=== PATIENT | male | born 1955 | race Caucasian/White ===

== ENCOUNTER 2024-10-05 22:04 | Inpatient (IN) ==
[2024-10-05] MEDS ORDERED: STAT IV Infusion **Titration per Protocol STA (23:07)
[2024-10-05] MEDS: dexMEDEtomidine 200 MCG/50 ML BAG IV SCH (23:43)
[2024-10-05 23:50] LABS: Amphetamines+Metham, Urine Neg (Neg); MDMA (Ecstacy), Urine Neg (Neg); Marijuana, Urine Neg (Neg)
[2024-10-06 00:06] LABS: Anion Gap 9.0 (3-11); Blood Urea Nitrogen 14.0 mg/dl (6-23); Calcium 7.6 mg/dl (8.6-10.3); Carbon Dioxide 27.0 mmol/L (21-32); Chloride 81.0 mmol/L (98-107); Creatinine Clr Calc Pharmacy 122.8 ml/min; Glucose 95.0 mg/dl (70-99(Fasting)); Potassium 3.5 mmol/L (3.5-5.1); Sodium 117.0 mmol/L (136-145)
[2024-10-06 00:18] LABS: INR 1.2 (0.9-1.1); Prothrombin Time 13.0 Seconds (9.0-12.0)
[2024-10-06 00:19] LABS: Alanine Aminotransferase 44.0 U/L (7-52); Alkaline Phosphatase 78.0 U/L (34-104); Bilirubin,Total 1.5 mg/dl (0.2-1.0); Total Protein 6.1 gm/dl (6.0-8.3)
--- NOTE | 2024-10-06 00:24 | Critical Care Consultation ---
Date of Consultation October 06, 2024 Assessment & Plan (1) Thyroid nodule: (2) Anaplasmosis: (3) Lyme disease: (4) Hyponatremia with decreased serum osmolality: (5) Encephalopathy: Plan Reason Critically Ill: 68 YOM presents encephalopathic, febrile, hyponatremic. Concern for central nervous system infection as well as severe hyponatremia. Neuro - Encephalopathy CAM ICU: UMM - Patient with multitude of vector/risks for ELASTIC CUTTER type of infection - LP will be attempted- see separate procedure note- as sample was bloody and clotted- currently only able to be tested was lyme and crptococcal - if enough sample left biofire panel will be attempted - volume was small and bloody that was starting to clot in the tube - MRI with and without contrast to eval for abscess/ventriculitis/encephalitis/meningitis or evidence of other demyelinating processes - blood cultures x2 - Tick panel- Babesia/anaplasmosis/lyme - Will send RPR with reflex - HIV sent - Patient will be empircally treated with - Amp, acyclovir, Azithro, Rocephin, Doxycycline, and Vancomycin until clinical picture becomes more clear and/or culture data becomes more revealing - Hold on steroids at this time as he is without nuchal rigidity or headaches - ID consultation appreciated - TSH - cortisol - Fentanyl and Propofol for sedation - when weaning change to Precedex wean/extubation Cardiac - edema, elevated BNP, - Patient with pitting edema from mid thigh to lower extremities bilaterally- difficult to ascertain into abdomen or sacral area secondary to body habitus - BNP markedly elevated at 3k - As his hyponatremia has been rapidly corrected prior to arrival- will hold on diuresis at this time- pending clinical course of NA will determine diuresis option - ECHO in am - ECG without STEMI - At this time hold on anticoagulation Respiratory - Intubated requiring mechanical ventilation, concern for pneumonia - Intubated for diagnostic work up and encephalopathy - pleural effusions at this time likely secondary to fluid volume status- likely new onset HG - haziness/opacifications bilaterally on CXR- concern for infective process - legionella urine pending - strep pneumo pending - Continue Azithro, Doxy, Rocephin for pulmonary sources - Bronch samples sent from [facility] following intubation GI - No acute needs - OGT to LIWS RENAL/LYTES - Severe hyponatremia, other electrolyte disturbances - Hypoosmolar hyponatremia- with Urinary NA < 20 - at this time likely secondary to HF however may be exacerbated by or accompanied by other infective cause - Hypertonic NA in the form of 8.4% NAHCO3 administered prior to arrival at [facility]- now with NA level 118- 5mmol correction in few hours - with the severity of his hyponatremia- he is at risk for ODS - goal of correction will be aimed at slow and steady 6-8mmol in 24 hours - DDAVP 2mcg IV q8 - D5W at 100 ml/hr to slow rate of correction- he is also receiving multiple abx mixed in saline and D5 as well- once this volume is infused will re-calculate D5 - Diurese as above when NA levels stabilize - Enlarged prostate seen on CT ab/pel - renal function normal - await UA/culture- continue with villalta ENDO - abnormal TSH, thyroid nodule - can likely proceed with outpatient workup when stable - could also consider ultrasound of thyroid in house if he stabilizes+ HEME - See ID ID - - Concern for ELASTIC CUTTER infection as above - His lyme and anaplasmosis was immediately positive with path confirm on anaplasmosis- doxy 200mg IV now and then q12 - Azithromycin for concern for atypical pneumonia - Rocephin and Vanco for ELASTIC CUTTER and CAP and possible skin - Amp for listeria prevention - Acyclovir for concern of ELASTIC CUTTER infx - ID consulted LINES/IV ACCESS - CVL, PIV, ETT, Villalta, OGT Continue use of these lines DVT PROPHYLAXIS - SCDS, hold on chemoprophylaxis until LP obtained DISPO: ICU while intubated and sedated and until NA correction stable and at least 120-125 I have personally spent 55 minutes of critical care time in the direct management of this patient. This is a life/limb threatening event. This includes time spent evaluating patient, direct bedside care, chart review, placing orders, interpretation of diagnostic studies, discussion with consultants, patient, and family members, as well as other required patient management activities. This time is exclusive of all separately billable procedures, and teaching time and separate from and in addition to any other critical care service time. Thank you for allowing us to participate in the care of this patient. Please refer to my attending physician's documentation for any further recommendations Supervising Physician Co-Signing Physician Notes I have personally evaluated and examined this patient. I agree with assessment and plan of Enio TORRES. Patient does not have capacity, is not exhibiting clear insight into underlying disease process. History obtained from sister reports that the patient lives a rather rustic life, he has had numerous animals in his home, previously there were bats living in his home, reportedly the patient drinks bottled water however I am unsure of the type of water or well water the patient has access to, he does not follow-up with physicians and has not received vaccinations in several years. Patient is at risk for multiple unique infections including Legionella, Listeria, all tickborne diseases (he is already tested positive for Lyme and anaplasmosis) given the findings on the LP as it is going to be largely nondiagnostic given that they persist presumptively a traumatic tap we will empirically start acyclovir, ampicillin to cover Listeria, azithromycin for Legionella, Doxy for anaplasmosis, high-dose ceftriaxone which will cover Lyme and additional CSF pathogens, vancomycin for skin and soft tissue. Patient's sister reports he routinely excoriates his upper extremities and has been dealing with open wounds. While the patient has upper extremity cellulitis he does not appear to have evidence of necrotizing infection. Patient has intertrigo in the inframammary folds as well as the inguinal creases. He was found to be significantly hyponatremic and treatment was started at [facility] [address] ED where he initially presented. He has rapidly increased in 4 points in sodium, therefore we are adding DDAVP and starting free water. Patient appears to have sick euthyroid with a decreased TSH and elevated free T4. AST is mildly elevated, checking acute hepatitis panel however I suspect there are aspects of metabolic dysfunction associated steatohepatitis patient is morbidly obese with a BMI of greater than 45, also sending lipid panels as well as A1c. I reviewed the CT reports from [facility] [address], the CT head was largely unremar kable it noted he had a thyroid nodule as well as enlarged lymph node on the right and inguinal lymph nodes which may correlate to the intertrigo. He has enlarged prostate given the lack of follow-up, age, and encephalopathy checking a PSA: The patient has not had a rectal exam to my knowledge so I believe the PSA will be reflective of his baseline. I have personally spent 45 minutes of critical care time in the direct management of this patient 2 AM to 2:45 AM. This is a life/limb threatening event. This includes time spent evaluating patient, direct bedside care, chart review, placing orders, interpretation of diagnostic studies, discussion with consultants, patient, and/or family members regarding treatment decisions, as well as other required patient management activities. This time is exclusive of all separately billable procedures, and teaching time and separate from and in addition to any other critical care service time. History of Present Illness Reason for Consultation: hyponatremia Requesting Physician: gerardo crowe MD Attending Physician: Gerardo Crowe MD History of Present Illness 68 YOM that does not routinely seek medical care or follow with a PCP was with a friend today and was noted to be acting strange. The friend called the daughter who lives in [facility], she was aware that he has been acting strange the past week with multiple complaints of "muscles not working right" and seeming confused and irritable. She directed the friend to call 911, and she would leave to drive to [place]. EMS did show up and the patient refused to be transported to the hospital, the Daughter did show up and get the patient to go to [facility] in [place], where in the ER he was noted to be encephalopathic and hypoxic. He had routine labs performed that included TSH, BNP, and D-dimer, as well as CT head, CTA of the chest and CT of abd/pelvis. He was noted with severe hyponatremia to 113, as well as elevated BNP, and elevated D-dimer. The patient was given 1L normal saline and 2 amps of 8.4 % NAHCO3 for his hyponatremia. CT head was without hemorrhage, mass, or LVO, CTA of chest was poorly timed, but without large PE, CT abd/pelvis without acute process. Transfer was requested to [facility] for reported as hypervolemic hyponatremia. NA prior to leaving for [facility] was corrected to 118. He received Rocephin for concern of pneumonia. Patient arrived to [facility] with his sister. The patient was agitated, trying to remove catheter and IV lines, he is unable to tell us where he is or why he is at the hospital. He is also unable to recall that he has a catheter in place to void. He is moving all extremities and speech is clear, but inappropriate. He was febrile to 36.8 on arrival as well. His daughter presented with further history regarding his symptoms and medical history. She confirms that the patient has not seen a DrOzzie in over 7 years and at that time she took him to the for swelling in his legs. He did not follow up for any of the follow on cardiac tests or further medical screening. She states that over the past 2 weeks he has been saying that "he has a virus that won't go away" reports that he was feeling feverish and anxious and weak. She also reports that he scratches at his arms pulling out "white strands of tissue" as well as that he has been complaining of weakness in his muscles, and that his "motor function is not working right". Further information regarding his symptoms she also notes that his house is not well kept and that he may or not be using well water, but states he got a new filter for this. She also reports that he has a multitude of cats in his house and the house is not well kept or clean, [place] that [place] mostly all tall grass and weeds and he is out through the grass and weeds frequently. There was also history of bats in his attic with bat feces noted through the house, however this was "years ago", she does report that he did drink a bottle of water today when she offered it to him. She states that he does not usually want to go to the hospital and is not in tune with medications or vaccinations. At this time there is a stronger suspicion of likely infective process that may be also exacerbating or at the very least accompanying this hyponatremia and symptoms of encephalopathy further increasing risk for seizure or disability or decompensation. With his current status and wide range of possible vectors for an encephalitis/meningitis/atypical infection, we will send tick borne labs, obtain blood cultures, urine culture, fungal cultures. Discussed that he would benefit from an LP to increase yield for workup and diagnosis to rule in/out central nervous system infection as well as an MRI. For this however, the patient is not in the current state to follow commands, or consent to have these performed. For this intubation, sedation and mechanical ventilation was recommended. She was unsure of how to proceed as Agustin would not want to be on a ventilator, but was even more unsure because this is potentially reversible as well as a tool to allow for diagnostics that may be life saving. We had a family conference call with the 2 Sons, Obinna, and Shivam, and the Daughter Ila. I explained the above, that at this time he is critically ill and evaluating for a central nervous system or systemic infection is also priority as this may be either primary or secondary relation to his mentation and his hyponatremia. They all agreed that progressing with intubation, mechanical ventilation and LP to rule in or out central process was beneficial to Agustin and allow him to progress through his care safer as well as the possibility of increasing yield to a diagnosis. Risks and benefits of the LP, and Intubation with sedation were presented to include but not limited to . I have discussed the above with Dr. Abreu my Attending in real time following the HPI data and he agreed with the above with plan to proceed with intubation, LP, and advanced imaging. He was present at the bedside within 15 minutes. CODE: FULL Allergies Allergy/AdvReac Type Severity Reaction Status Date / Time No Known Allergies Allergy Unverified 10/05/24 23:21 Home Medications Medication Instructions Recorded Confirmed Type No Known Home Medications 10/05/24 10/05/24 History Patient History Social History Smoking Status: Current every day smoker Tobacco Type: Pipe Hx Alcohol Use: Yes Alcohol type: beer Hx Substance Use: No Preferred Language: Citizen Of [place] Communication Ability: Impaired [place] Can Worker Required: No Beliefs That Will Affect Care: None Current Living Situation: Alone Other Information That Helps Us Care for You: No Feels Safe at Home: Yes Safety Concerns: Feels Safe At This Time Assistive Devices: Glasses Review of Systems Review of Systems: as per HPI Physical Exam Physical Exam: PHYSICAL EXAM: General: awake, alert, confused/agitated and combative ENT: PERRLA, tracks you around the room, mucous membranes dry. Neuro: AAO x1, speech slurred and inappropriate, strength intact bilaterally 5/5, sensation intact in all extremities, no facial droop, Chest: equal rise and fall of the chest, abdominal breathing, difficult assessment secondary to body habitus and chest hair Cardiac: Regular rate and rhythm, telemetry reviewed- NSR, skin warm dry, cap refill <3 seconds, peripheral pulses +1, GI: NABS x 4 quadrants, obese, distended : Villalta draining geo urine Skin: scarred and open areas to bilateral upper arms, pedunculated lesions to bilateral lower legs, heels, onychomycosis severe to toes, excoriated groin and breast folds Results & Data Results & Data Vital Signs (Past 12 Hours) Vital Signs Temp Pulse Pulse Resp BP BP Pulse Ox 10/05/24 23:12 38.6 C H 103 H 34 H 95 10/05/24 23:00 10/05/24 23:00 38.6 C H 102 H 25 H 93 10/05/24 22:47 152/95 H 10/05/24 22:47 152/95 H 10/05/24 22:42 117 H 89 L 10/05/24 22:30 38.6 C H 122 H 22 152/95 H 92 O2 Del Method O2 Flow Rate 10/05/24 23:12 10/05/24 23:00 Nasal Cannula 2 10/05/24 23:00 10/05/24 22:47 10/05/24 22:47 10/05/24 22:42 10/05/24 22:30 Nasal Cannula 2 Laboratory Results Abnormal lab results 10/05/24 10/05/24 10/06/24 Range/Units 23:16 23:43 02:16 PT 13.0 H (9.0-12.0) Seconds INR 1.2 H (0.9-1.1) VBG pH 7.48 H (7.36-7.41) Sodium 117 L* (136-145) mmol/L Chloride 81 L (98-107) mmol/L Osmolality 241 L (280-300) mOsm/kg Calcium 7.6 L (8.6-10.3) mg/dl Total Bilirubin 1.5 H (0.2-1.0) mg/dl Direct Bilirubin 1.0 H (0-0.2) mg/dl AST 52 H (13-39) U/L Albumin 2.8 L (3.4-5.0) gm/dl Triglycerides (0-150) mg/dl VLDL Cholesterol, Calc (0-30) mg/dl Cholesterol/HDL Ratio (0-5) Prostate Specific Ag 4.585 H (0-4) ng/ml Procalcitonin 2.51 H (0-0.5) ng/ml TSH 0.276 L (0.300-4.500) uIu/ml Anaplasma Smear See Comment A Lyme Disease Screen Positive H (Negative) Lyme Tier 2 IgG Confirm Positive H (Negative) Lyme Tier 2 IgM Confirm Positive H (Negative) 10/06/24 Range/Units 03:29 PT (9.0-12.0) Seconds INR (0.9-1.1) VBG pH (7.36-7.41) Sodium (136-145) mmol/L Chloride (98-107) mmol/L Osmolality (280-300) mOsm/kg Calcium (8.6-10.3) mg/dl Total Bilirubin (0.2-1.0) mg/dl Direct Bilirubin (0-0.2) mg/dl AST (13-39) U/L Albumin (3.4-5.0) gm/dl Triglycerides 194 H (0-150) mg/dl VLDL Cholesterol, Calc 39 H (0-30) mg/dl Cholesterol/HDL Ratio 9.8 H (0-5) Prostate Specific Ag (0-4) ng/ml Procalcitonin (0-0.5) ng/ml TSH (0.300-4.500) uIu/ml Anaplasma Smear Lyme Disease Screen (Negative) Lyme Tier 2 IgG Confirm (Negative) Lyme Tier 2 IgM Confirm (Negative) Medications Administered Home Medications No Known Home Medications 10/05/24 [History Confirmed 10/05/24] Active Medications Acetaminophen (Acetaminophen 325 Mg Tab) 650 mg PO Q4H PRN PRN Reason: Fever/Mild Pain (Pain 1,2,3) Stop: 11/05/24 00:34 Fentanyl Citrate (Fentanyl Bolus From Bag) 50 mcg IV Q60M PRN PRN Reason: Pain or Agitation Stop: 10/20/24 00:34 Fentanyl Citrate (Fentanyl Citrate Pf 100 Mcg/2 Ml Vial) 50 mcg IV Q2H PRN PRN Reason: Moderate Pain (4,5,6) on NRS Stop: 10/20/24 01:05 Propofol (Diprivan) 1,000 mg in 100 mls @ 18.168 mls/hr IV .Q5H31M [facility]; Protocol Stop: 10/09/24 00:44 Last Admin: 10/06/24 02:11 Dose: 20 mcg/kg/min, 18.2 mls/hr Fentanyl Citrate (Fentanyl Citrate) 2,500 mcg in 250 mls @ 2.5 mls/hr IV .Q96H [facility]; Protocol Stop: 10/20/24 00:44 Last Admin: 10/06/24 02:22 Dose: 25 mcg/hr, 2.5 mls/hr Doxycycline Hyclate 100 mg/ (Dextrose) 100 mls @ 50 mls/hr IV Q12H [facility] Stop: 10/20/24 08:59 Acetaminophen (Ofirmev) 1,000 mg in 100 mls @ 400 mls/hr IV Q8H PRN PRN Reason: Fever/Mild Pain (Pain 1,2,3) Stop: 10/09/24 01:05 Last Infusion: 10/06/24 02:56 Dose: Infused Desmopressin Acetate 2 mcg/ (Sodium Chloride) 50.5 mls @ 100 mls/hr IV Q8H [facility] Stop: 11/05/24 01:29 Last Infusion: 10/06/24 03:06 Dose: Infused Dextrose (D5w) 1,000 mls @ 100 mls/hr IV .Q10H [facility] Stop: 10/09/24 01:29 Last Admin: 10/06/24 02:18 Dose: 100 mls/hr Doxycycline Hyclate 100 mg/ (Dextrose) 100 mls @ 50 mls/hr IV Q2H [facility] Stop: 10/06/24 05:44 Last Admin: 10/06/24 02:10 Dose: 50 mls/hr Ceftriaxone Sodium (Rocephin) 2,000 mg in 50 mls @ 100 mls/hr IV Q24H [facility] Stop: 10/16/24 01:59 Last Infusion: 10/06/24 03:06 Dose: Infused Ampicillin Sodium/Sulbactam Sodium (Unasyn) 3,000 mg in 100 mls @ 200 mls/hr IV Q6H [facility] Stop: 10/16/24 01:44 Last Infusion: 10/06/24 03:54 Dose: Infused Vancomycin HCl 2,750 mg/ (Sodium Chloride) 555 mls @ 180 mls/hr IV NOW ONE Stop: 10/06/24 05:04 Last Admin: 10/06/24 02:37 Dose: 180 mls/hr Norepinephrine Bitartrate (Levophed/D5w) 4 mg in 250 mls @ 28.388 mls/hr IV .Q8H49M [facility]; Protocol Stop: 11/05/24 03:29 Last Admin: 10/06/24 03:25 Dose: 0.05 mcg/kg/min, 28.4 mls/hr Vancomycin HCl 1,500 mg/ (Sodium Chloride) 530 mls @ 200 mls/hr IV Q12H [place] Stop: 10/16/24 13:59 Miscellaneous ([facility] Protocol For Hyperglycemia) 1 each N/A ACHS [place] Stop: 10/08/24 07:29 Miscellaneous Information (Vancomycin Consult Active) 0 each N/A UD PRN PRN Reason: Consult Stop: 11/05/24 01:39 Propofol (Propofol Bolus From Bag) 20 mg IV Q5M PRN PRN Reason: Sedation Stop: 10/09/24 00:34 Coding Level of Care Code 60914 CRITICAL CARE 1ST 30-74M Diagnoses Thyroid nodule E04.1 Anaplasmosis A77.49 Lyme disease A69.20 Hyponatremia with decreased serum osmolality E87.1 Encephalopathy G93.40
[2024-10-06 00:29] LABS: Thyroid Stimulating Hormone 0.276 uIu/ml (0.300-4.500)
[2024-10-06] MEDS ORDERED: ACETAMINOPHEN 325 MG TAB PO PRN (00:35)
[2024-10-06] MEDS ORDERED: PROPOFOL BOLUS FROM BAG IV PRN (00:35)
[2024-10-06] MEDS ORDERED: VECURONIUM BROMIDE 10 MG VIAL IV STA (00:35)
[2024-10-06] MEDS ORDERED: STAT IV Infusion **Titration per Protocol STA ×2 (00:35→03:16)
[2024-10-06 00:37] LABS: Lyme Screen Rflx Confirmation Positive (Negative)
[2024-10-06 00:50] LABS: Procalcitonin 2.51 ng/ml (0-0.5)
[2024-10-06 01:16] LABS: Lyme Ab IgG 2nd Tier Confirm Positive (Negative)
[2024-10-06 01:17] LABS: Lyme Ab IgM 2nd Tier Confirm Positive (Negative)
--- NOTE | 2024-10-06 01:24 | History & Physical Report ---
Date of Service October 06, 2024 Assessment & Plan (1) Confusion: Plan: 68-year-old male who does not go to doctors was taken to [facility] by his sister because of confusion and found to have hyponatremia and was transferred here for ICU admission. Patient is currently very restless and somewhat agitated. Can tell his name. When asked his age says he is 69-year-old and his birthday is next Monday. Denies any chest pain. Patient constantly trying to take off restraints. Difficult to get any history from the patient currently. Says he smokes cigars. Says he drinks alcohol once a week. Denies any marijuana. Denies any medication except supplements. As per sister patient was complaining of virus infection for few days but since last Monday symptoms seem got worse and was complaining shortness of breath. When sister talked on the the phone today patient seemed to be confused. And as per sister patient does not like hospitals and did not see any doctors for long time. As per sister patient living conditions are not great. There are several cats in the house. House is not Properly kept. He drinks well water as per sister. [place] Lives [place]. Few years back there were bats in the house. His legs are swollen for some time per sister. He is a [employer] grad as per sister. Currently patient is spiking temperature. Blood pressure okay. Saturating 95% 2 L. Tachycardic.. At [facility] patient received Rocephin and azithromycin. He also received 2 A of sodium bicarbonate and 1 L of normal saline. 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 1.9 cm left thyroid nodule. 2.1X 1.7 cm right axillar lymph nodes Rule out meningitis/encephalitis On IV doxycycline, acyclovir, ampicillin, Rocephin, vancomycin and azithromycin Plan for LP and MRI of the brain- MRI brain no acute findings s/p intubation. Vent management per critical care. Appreciate critical care help Hyponatremia Presented with sodium of 113 at [facility] Received 2 A of sodium bicarb and 1 L of normal saline and repeat was 118. Sodium repeat here is 117 On desmopressin per critical care Close monitoring of the labs for sow correction appreciate critical care help. Rapid A-fib Will follow serial cardiac enzymes and echo Plan for anticoagulation after LP cardiology consult Lower extremity edema Elevated BNP Dopplers when stable Will follow echo DVT prophylaxis SCDs for now Disposition ICU CODE STATUS level 1 full code for now Admission and Anticipated Discharge Date Admission Date: October 05, 2024 History of Present Illness Chief Complaint: Confusion, hyponatremia, fevers Primary Care Provider: NO PCP 68-year-old male who does not go to doctors was taken to [facility] by his sister because of confusion and found to have hyponatremia and was transferred here for ICU admission. Patient is currently very restless and somewhat agitated. Can tell his name. When asked his age says he is 69-year-old and his birthday is next Monday. Denies any chest pain. Patient constantly trying to take off restraints. Difficult to get any history from the patient currently. Says he smokes cigars. Says he drinks alcohol once a week. Denies any marijuana. Denies any medication except supplements. As per sister patient was complaining of virus infection for few days but since last Monday symptoms seem got worse and was complaining shortness of breath. When sister talked on the the phone today patient seemed to be confused. And as per sister patient does not like hospitals and did not see any doctors for long time. As per sister patient living conditions are not great. There are several cats in the house. House is not Properly kept. He drinks well water as per sister. [place] Lives alone. Few years back there were bats in the house. His legs are swollen for some time per sister. He is a [employer] grad as per sister. Currently patient is spiking temperature. Blood pressure okay. Saturating 95% 2 L. Tachycardic.. At [facility] patient received Rocephin and azithromycin. He also received 2 Amps of sodium bicarbonate and 1 L of normal saline. Past medical history. Unknown. Past surgical history. Unknown. Social history. Smokes cigars. Drinks alcohol once a week. Denies any drug use. Family history. Unknown at this time. Father had heart disease as per sister. Allergies Allergy/AdvReac Type Severity Reaction Status Date / Time No Known Allergies Allergy Unverified 10/05/24 23:21 Home Medications Medication Instructions Recorded Confirmed Type No Known Home Medications 10/05/24 10/05/24 History Past Med/Surg History Problem List (Updated 10/06/24 @ 05:47 by MELISSA Forte) Encephalopathy Intertriginous candidiasis Hyponatremia with decreased serum osmolality Prostate enlargement Cellulitis of right arm Thyroid nodule 1.9 cm left thyroid lobe; CT 10/05/24 Anaplasmosis Lyme disease Confusion Social History Smoking Status: Current every day smoker Tobacco Type: Pipe Hx Alcohol Use: Yes Alcohol type: beer Hx Substance Use: No Preferred Language: Maori Communication Ability: Impaired Record Systems Analyst Required: No Beliefs That Will Affect Care: None Current Living Situation: Alone Other Information That Helps Us Care for You: No Feels Safe at Home: Yes Safety Concerns: Feels Safe At This Time Assistive Devices: Glasses Review of Systems Review of Systems: Unobtainable due to reduced consciousness Physical Exam Physical Exam: General- Restless Head- atraumatic Eyes- PERRL. ENT- oropharynx clear Neck- supple, no JVD. Lungs- clear to auscultation no wheezing or crackles Heart- regular rhythm; tachycardia no murmur, no gallop. Abdomen- normal bowel sounds, soft, nontender, no distension Extremities- b/l lower extremity edema with chromic skin changes seen, no erythema seen Neuro- Restless oriented x1 ; PERRL, no facial palsy; no dysarthria; moves extremities Results & Data Results & Data Vital Signs (Past 12 Hours) Vital Signs Temp Pulse Pulse Resp BP BP Pulse Ox 10/05/24 23:12 38.6 C H 103 H 34 H 95 10/05/24 23:00 10/05/24 23:00 38.6 C H 102 H 25 H 93 10/05/24 22:47 152/95 H 10/05/24 22:47 152/95 H 10/05/24 22:42 117 H 89 L 10/05/24 22:30 38.6 C H 122 H 22 152/95 H 92 O2 Del Method O2 Flow Rate 10/05/24 23:12 10/05/24 23:00 Nasal Cannula 2 10/05/24 23:00 10/05/24 22:47 10/05/24 22:47 10/05/24 22:42 10/05/24 22:30 Nasal Cannula 2 Laboratory Results From [facility] vbg ph 7.51,pco2 33carboxyhemo 1%, glucose 101, bun 13, creatinine 0.8, total protein 6.4, total bilirubin 1.5, AST 61, ALT 61, alkaline phosphatase 91, sodium 113, potassium 3.6, chloride 80, CO2 25, lipase 26, magnesium 1.6,. BNP 3499, troponin 1 HS 31. TSH 0.33, free T41.14. D-dimer 6220. WBC 6.9, hemoglobin 11.3, hemocculted 31.7, MCV 79.4, platelet 165. Flu A, flu B not detected UA protein 2+ UA nitrate negative UA leukocyte esterase negative Urine sodium 8 CT head. Motion limited evaluation. No acute intracranial process identified CTA chest. Evaluation pulmonary embolism significant limited by poor contrast timing and respiratory motion artifact. No evidence of large or central PE. Nonspecific mild bibasilar airspace opacities may represent atelectasis, pneumonia or aspiration. 1.9 cm left thyroid lobe nodule. Nonemergent thyroid ultrasound recommended. Enlarged right axillary lymph nodes measuring 2.1X 1.7 cm. Further evaluation is recommended. CT abdomen pelvis with contrast. No acute findings in the abdominal pelvis. Nonspecific enlarged bilateral inguinal lymph nodes. These lymph nodes could be reactive or malignant. Follow-up CT scan in 3 months is recommended. Marked prostatomegaly with prostate measuring 7.5X 6.3 cm. Diagnostic Findings Laboratory Results PT 13.0 Seconds (9.0-12.0) H 10/05/24 23:16 INR 1.2 (0.9-1.1) H 10/05/24 23:16 VBG pH 7.48 (7.36-7.41) H 10/05/24 23:16 Sodium 117 mmol/L (136-145) L* 10/05/24 23:16 Potassium 3.5 mmol/L (3.5-5.1) 10/05/24 23:16 Chloride 81 mmol/L (98-107) L 10/05/24 23:16 Carbon Dioxide 27 mmol/L (21-32) 10/05/24 23:16 Anion Gap 9 (3-11) 10/05/24 23:16 BUN 14 mg/dl (6-23) 10/05/24 23:16 Creatinine 0.86 mg/dl (0.6-1.4) 10/05/24 23:16 Est Cr Clr Drug Dosing 122.8 ml/min 10/05/24 23:16 eGFR 93.73 10/05/24 23:16 BUN/Creatinine Ratio 16.3 (10-20) 10/05/24 23:16 Glucose 95 mg/dl (70-99(Fasting)) 10/05/24 23:16 Osmolality 241 mOsm/kg (280-300) L 10/05/24 23:43 Calcium 7.6 mg/dl (8.6-10.3) L 10/05/24 23:16 Total Bilirubin 1.5 mg/dl (0.2-1.0) H 10/05/24 23:16 Direct Bilirubin 1.0 mg/dl (0-0.2) H 10/05/24 23:16 AST 52 U/L (13-39) H 10/05/24 23:16 ALT 44 U/L (7-52) 10/05/24 23:16 Alkaline Phosphatase 78 U/L (34-104) 10/05/24 23:16 Total Protein 6.1 gm/dl (6.0-8.3) 10/05/24 23:16 Albumin 2.8 gm/dl (3.4-5.0) L 10/05/24 23:16 Procalcitonin 2.51 ng/ml (0-0.5) H 10/05/24 23:43 TSH 0.276 uIu/ml (0.300-4.500) L 10/05/24 23:16 Free T4 0.91 ng/dl (0.61-1.60) 10/05/24 23:16 Urine Opiates Screen Neg (Neg) 10/05/24 Unknown Ur Methadone, Qual Neg (Neg) 10/05/24 Unknown Urine Fentanyl Screen Neg (Neg) 10/05/24 Unknown Urine Barbiturates Neg (Neg) 10/05/24 Unknown Ur Phencyclidine (PCP) Neg (Neg) 10/05/24 Unknown U Amphetamin/Meth Scrn Neg (Neg) 10/05/24 Unknown MDMA (Ecstasy) Screen Neg (Neg) 10/05/24 Unknown U Benzodiazepines Scrn Neg (Neg) 10/05/24 Unknown Ur Cocaine Metabolite Neg (Neg) 10/05/24 Unknown U Marijuana (THC) Screen Neg (Neg) 10/05/24 Unknown Anaplasma Smear See Comment A 10/05/24 23:43 Babesia Smear See Comment 10/05/24 23:43 Lyme Disease Screen Positive (Negative) H 10/05/24 23:43 Lyme Tier 2 IgG Confirm Positive (Negative) H 10/05/24 23:43 Lyme Tier 2 IgM Confirm Positive (Negative) H 10/05/24 23:43 ECG Additional Comments: EKG. A-fib with RVR at a rate of 120. QTc 449 Code Status & VTE Plan VTE Prophylaxis Plan VTE Prophylaxis will be ordered: Yes
[2024-10-06] MEDS ORDERED: VANCOMYCIN CONSULT ACTIVE PRN (01:40)
[2024-10-06] MEDS ORDERED: DEXTROSE 5% IV ONE (01:42)
[2024-10-06] MEDS ORDERED: ACYCLOVIR SOD IV ONE (01:42)
[2024-10-06] MEDS: Patient's HEIGHT &/or WEIGHT Needed STA (01:52)
[2024-10-06] MEDS: RAPID SEQUENCE INDUCTION BAG ONE (01:54)
[2024-10-06] MEDS: DOXYCYCLINE HYCLATE 100 MG in DEXTROSE 5% MINI-B 100 ML IV STA (02:00)
--- NOTE | 2024-10-06 02:08 | Procedure Note ---
Procedure Note Date of Service October 06, 2024 Procedure date: Noted above Procedure: Central venous access Pre-procedure indication: Need for definitive venous access, frequent lab draws Post-procedure Diagnosis: same as above Prior to Procedure: Informed Consent: The risks, benefits, indications, potential complications, and alternatives were explained to the patient's family via conference call and informed consent obtained. Attending Staff: Alberto Abreu DO Resident/APC: Taylor Skin Prep: Chlorhexidine Anesthesia: 4 mL 1% lidocaine without epinephrine The identity of the patient was confirmed and a bedside time out was performed. Description of Procedure: After sterile prep and sterile drape utilizing standard sterile technique the superficial skin of the right subclavian area was anesthetized. The target vessel was identified and entered with an 18-gauge needle. Dark venous blood return was noted. A guidewire was inserted through the needle and into the vessel. The needle was withdrawn and a skin kelsey was made. A tissue dilator was advanced via Seldinger technique and removed. A triple lumen catheter was inserted via Seldinger technique and the guidewire removed. All ports mamadou and flushed easily. A Biopatch was placed, and the catheter was secured via silk suture. A sterile dressing was then applied. Complications: None Estimated blood loss: Trace Patient tolerated the procedure well. [facility] [place] Codes (Charges) Tubes, Drains, and Vasc Access Procedure 1: Tubes, Drains, and Vasc Access: [id number] Insertion Of Non-tunneled Catheter Age 4 Yrs> Coding CPT Codes Tubes, Drains, and Vasc Access - Tubes, Drains, and Vasc Access: [id number] Insertion Of Non-tunneled Catheter Age 4 Yrs> ([id number]) Additional Codes Date of Service ([email or web address])
[2024-10-06] MEDS: DOXYCYCLINE HYCLATE 100 MG in DEXTROSE 5% MINI-B 100 ML IV SCH ×2 (02:10→16:44)
--- NOTE | 2024-10-06 02:10 | Procedure Note ---
Procedure Note Date of Service October 06, 2024 Procedure Date: Noted above Procedure: Endotracheal intubation Pre-procedure Diagnosis: Patient critically ill, encephalopathic need to facilitate medical evaluation Post-procedure Diagnosis: same as above Prior to Procedure: Informed Consent: Patient's family was verbally consented via conference call Attending Staff: Alberto Abreu DO The identity of the patient was confirmed and a bedside time out was performed. Description of Procedure: Patient was evaluated and required intubation for impending respiratory failure. The patient was prepared in the usual fashion. A video laryngoscope was used. A 8 mm inner diameter endotrachial tube was placed endotracheally to 24 cm at the teeth. A grade 1 view was obtained. The endotracheal tube was noted to pass through the vocal cords. Chest rise was bilateral. Bilateral breath sounds were heard without air sounds in the abdomen. Mist was noted in the endotracheal tube. End-tidal CO2 measurement was positive. Chest x-ray shows proper endotracheal tube placement. Complications: None Findings: Not applicable Specimens: Not applicable Estimated blood loss: Zero [facility] Procedure Codes (Charges) Resuscitation Resuscitation: 79554 Endotracheal Intubation, emergency Coding CPT Codes Resuscitation - Resuscitation: 15023 Endotracheal Intubation, emergency ([id number]) Additional Codes Date of Service ([email or web address])
[2024-10-06] MEDS: DEXTROSE 5% 1,000 ML IV SCH (02:18)
[2024-10-06] MEDS: DESMOPRESSIN ACETATE 2 MCG in SODIUM CHLORIDE 0.9% 50 ML IV SCH (02:19)
[2024-10-06] MEDS: fentaNYL citrate 2,500 MCG/250 ML BAG IV SCH (02:22)
[2024-10-06] MEDS: VECURONIUM BROMIDE 10 MG VIAL IV STA (02:22)
--- NOTE | 2024-10-06 02:23 | Procedure Note ---
Procedure Note Date of Service October 06, 2024 Procedure Date: October 06, 2024 Procedure: Lumbar puncture Pre-procedure Diagnosis: Acute encephalopathy Post-procedure Diagnosis: same as above Prior to Procedure: Informed Consent: The risks, benefits, indications, potential complications, and alternatives were explained to the patient's family via conference call and informed consent obtained. Attending Staff: Caridad Abreu DO Resident/Physician Water Registrar: Taylor Indications: Patient is a 68-year-old male who has abrupt onset neurologic complaints and was found to be with an altered sensorium and fever. The identity of the patient was confirmed and a bedside time out was performed. Description of Procedure: Patient was positioned in the right labral decubitus position, prepped and draped in usual sterile fashion. The L4-5 and L5-S1 space located with bilateral iliac crests as landmarks. 1% Lidocaine without epinephrine was used to anesthetize the area. An 18-gauge spinal needle was utilized. 3 needle passes were attempted at the L5-S1 space and unable to enter the subarachnoid space. A single needle passed in the L4-5 space entered the subarachnoid space. Stylet was removed with bloody fluid return that did not clear. 2 mL of fluid was obtained prior to the flow of the fluid stopping. Fluid was frankly bloody, no appearance of clots. Specimen(s): sent for BioFire PCR, culture: Given the small amount of fluid and obvious red cells the cell count, glucose, protein would be presumptively nondiagnostic. Complications: Presumptive traumatic lumbar puncture Findings: Frankly bloody CSF fluid Estimated Blood Loss: trace [facility] Procedure Codes (Charges) Neurology Neurology: 53173 Lumbar Puncture, diagnostic Coding CPT Codes Neurology - Neurology: 39408 Lumbar Puncture, diagnostic ([id number]) Additional Codes Date of Service ([email or web address])
[2024-10-06] MEDS: AZITHROMYCIN 500 MG/255 ML BAG IV ONE (02:28)
[2024-10-06] MEDS: cefTRIAXone SODIUM 2,000 MG/50 ML BAG IV SCH ×2 (02:34→14:18)
[2024-10-06] MEDS: VANCOMYCIN HCL 2,750 MG in SODIUM CHLORIDE 0.9% 500 ML IV ONE (02:37)
[2024-10-06] MEDS: ACETAMINOPHEN 1,000 MG/100 ML VIAL IV PRN (02:39)
--- NOTE | 2024-10-06 02:44 | XRay Report ---
EXAM: XR chest 1V portable CLINICAL HISTORY: Post intubation and CVC TECHNIQUE: Radiograph of chest was acquired. COMPARISON: FINDINGS: Endotracheal tube in situ with the tip at a distance of approximately 7. 4 cm from swapnil Blunting of the bilateral costophrenic angles Ill-defined haziness in right middle and lower lobes and left lower zone The lungs are clear and well-expanded . Rest of the cardiomediastinal silhouette is within normal limits. No acute osseous abnormality. IMPRESSION: Endotracheal tube in situ with the tip at a distance of approximately 7. 4 cm from swapnil Bilateral pleural effusion with passive atelectasis of adjacent lung parenchyma. Ill-defined haziness seen right middle and lower zone and left lower zone - to be of infective etiology. All the above findings are new compared to prior x-ray Suggest CT correlation Electronically signed by Juan Antonio Cabrera 10-06-2024 02:43 AM
[2024-10-06] MEDS: AMPICILLIN/SULBACTAM SOD 3,000 MG/100 ML BAG IV SCH (02:58)
[2024-10-06] MEDS: ACYCLOVIR SOD 775 MG in DEXTROSE 5% 250 ML IV STA (03:03)
[2024-10-06] MEDS: NOREPINEPHRINE/D5W 4 MG/250 ML PLCT IV SCH (03:25)
[2024-10-06] MEDS: NOREPINEPHRINE/D5W 4 MG/250 ML IV ONE (03:26)
[2024-10-06 03:29] LABS: Prostate SpecificAg Diagnostic 4.585 ng/ml (0-4)
[2024-10-06 04:00] LABS: Hep B Surface Ag with confirm Negative (Negative)
[2024-10-06 04:01] LABS: Treponema pallidum RflxConfirm Negative (Negative)
[2024-10-06 04:06] LABS: Hep C Ab Rflx HepCQuant RNA Negative (Negative)
[2024-10-06 04:11] LABS: Cholesterol 108.0 mg/dl (0-200); HDL Cholesterol 11.0 mg/dl; Triglycerides 194.0 mg/dl (0-150)
[2024-10-06 04:41] LABS: Anion Gap 6.0 (3-11); Blood Urea Nitrogen 15.0 mg/dl (6-23); Calcium 7.4 mg/dl (8.6-10.3); Carbon Dioxide 28.0 mmol/L (21-32); Chloride 82.0 mmol/L (98-107); Creatinine Clr Calc Pharmacy 100.6 ml/min; Glucose 138.0 mg/dl (70-99(Fasting)); Potassium 3.4 mmol/L (3.5-5.1); Sodium 116.0 mmol/L (136-145)
[2024-10-06] MEDS: GADOBUTROL 65ML VIAL IV ONE (05:33)
--- NOTE | 2024-10-06 05:50 | CT Scan Report ---
EXAM: CT head/brain wo con CLINICAL HISTORY: Eval for hemorrhage TECHNIQUE: Axial non-contrast CT scan of the brain was performed from the skull base to the high parietal region. One of the following dose reduction techniques was utilized for this exam: Automated exposure control, adjustment of the mA and/or kV according to patient size, use of iterative reconstruction. COMPARISON: None. FINDINGS: Brain Parenchyma: Normal attenuation of the cerebral hemispheres, cerebellum, and brainstem. No evidence of acute infarct, hemorrhage, or mass effect. No abnormal areas of hypo- or hyperattenuation. Ventricular System: Ventricles are normal in size and configuration. No evidence of hydrocephalus or ventricular enlargement. Subarachnoid Spaces: Normal sulci and cisterns. No evidence of subarachnoid hemorrhage or extra-axial fluid collections. Cerebellum and Brainstem: No masses, lesions, or areas of abnormal density. Orbits: Normal appearance of the globes, optic nerves, and extraocular muscles. No evidence of orbital masses or abnormal density. Sinuses: Bilateral ethmoidal and left maxillary sinusitis. Fluid attenuation in the visualized nasal cavity Mastoid Air Cells: Clear mastoid air cells. No evidence of mastoiditis. Skull: Normal skull morphology. IMPRESSION: 1. No evidence of acute infarct or hemorrhage according to a non-contrast CT exam. 2. Bilateral ethmoidal and left maxillary sinusitis. 3. Fluid attenuation in the visualized nasal cavity. Electronically signed by Isaiah Yanes 10-06-2024 05:49 AM
[2024-10-06] MEDS: POTASSIUM CHLORIDE 20 MEQ/15 ML UDC PO STA (06:05)
--- NOTE | 2024-10-06 06:18 | Magnetic Resonance Report ---
EXAM: MR brain wo/w con CLINICAL HISTORY: Eval for encephalitis/meningitis/abscess. TECHNIQUE: MRI of the brain was performed with and without intravenous contrast administration 15 ml tres. Sequences obtained include pre-contrast and post-contrast T1-weighted, T2-weighted, FLAIR (Fluid-Attenuated Inversion Recovery), DWI (Diffusion-Weighted Imaging), and ADC (Apparent Diffusion Coefficient) sequences. COMPARISON: No previous studies are available for comparison. FINDINGS: Brain Parenchyma: No evidence of acute infarction or hemorrhage. Juarez-white matter differentiation is preserved. Few small frontoparietal periventricular white matter hyperintensities on FLAIR and T2 images, suggestive of mild chronic ischemic small vessel disease. Post-Contrast Findings: No abnormal enhancement of the brain parenchyma or meninges. Ventricles and Sulci: Mildly prominent ventricular system, sulci and cisternal spaces, mild age-related brain changes. No evidence of hydrocephalus. Brainstem and Cerebellum: Normal appearance of the brainstem and cerebellum without focal lesions or abnormal enhancement. Vessels: Intracranial vessels appear normal without evidence of vascular malformations or aneurysms. Skull and Calvarium: No evidence of skull vault lesions or abnormal marrow signal within the calvarium. Bilateral mild maxillary sinusitis. IMPRESSION: 1. No evidence of acute intracranial pathology or abnormal contrast enhancement. 2. Mild chronic ischemic small vessel disease and mild age-related brain changes. 3. Bilateral mild maxillary sinusitis. Electronically signed by Isaiah Yanes 10-06-2024 06:18 AM
[2024-10-06 07:30] LABS: Hemoglobin A1C 6.5 % (4.5-5.6)
[2024-10-06 07:51] LABS: Chlamydia pneumoniae PCR Not Detected (NotDetected); Coronavirus 229E PCR Not Detected (NotDetected); Coronavirus CoV-2 (COVID19)PCR Not Detected (NotDetected); Coronavirus HKU1 PCR Not Detected (NotDetected); Coronavirus NL63 PCR Not Detected (NotDetected); Coronavirus OC43PCR Not Detected (NotDetected); Human Metapneumovirus PCR Not Detected (NotDetected); Parainfluenza Virus 1 PCR Not Detected (NotDetected); Parainfluenza Virus 2 PCR Not Detected (NotDetected); Parainfluenza Virus 3 PCR Not Detected (NotDetected); Parainfluenza Virus 4 PCR Not Detected (NotDetected); Respiratory Syncytial VirusPCR Not Detected (NotDetected); Rhinovirus/Enterovirus PCR Not Detected (NotDetected)
[2024-10-06 08:25] LABS: Anion Gap 8.0 (3-11); Blood Urea Nitrogen 17.0 mg/dl (6-23); Calcium 7.3 mg/dl (8.6-10.3); Carbon Dioxide 28.0 mmol/L (21-32); Chloride 82.0 mmol/L (98-107); Creatinine Clr Calc Pharmacy 91.9 ml/min; Glucose 145.0 mg/dl (70-99(Fasting)); Potassium 3.9 mmol/L (3.5-5.1); Sodium 118.0 mmol/L (136-145)
[2024-10-06 08:34] LABS: Hematocrit (blood only) 29.6 % (42.0-52.0); Hemoglobin 10.5 g/dl (14.0-18.0); Mean Corpuscular Hemoglobin 28.6 pg (25.0-34.0); Mean Corpuscular Volume 80.7 fL (80.0-100.0); Platelet Count 126 K/uL (130-400); RDW Standard Deviation 41.5 fL (36.4-46.3); Red Blood Count 3.67 M/uL (4.70-6.10); White Blood Count 6.31 K/ul (4.8-10.8)
[2024-10-06 09:18] LABS: Neutrophil Body Fluid Man 11 %
[2024-10-06 09:19] LABS: Eosinophil Body Fluid Man 2 %; Fluid Mono/Macrophage 66 %; Lymphocyte Body Fluid Man 21 %
--- NOTE | 2024-10-06 09:52 | Cardiology Consultation ---
Date of Consultation October 06, 2024 Assessment & Plan (1) Atrial fibrillation: (2) Encephalopathy: (3) Hyponatremia with decreased serum osmolality: Plan 68-year-old male recluse admitted after presenting with symptoms of worsening confusion and encephalopathy. Marked metabolic derangement notable including hyponatremia hypocalcemia. Patient in atrial fibrillation with variable ventricular response rate on presentation rapid currently well-controlled on no AV eugenio blocking medications. Intubated sedated on low-dose pressors currently. History notable for longstanding lower extremity edema over at least 7 years duration. 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 EKG atrial fibrillation with low voltage no acute ST segment changes or Q waves Echocardiogram low normal LV function EF 50-55% 1. Atrial fibrillation of uncertain duration with variable ventricular sponsor rate. Overall LV systolic function low normal with mild left atrial enlargement. Will add no medications at this time but anticoagulation should be considered if not contraindicated. Continue to treat underlying metabolic derangement, possible infection Cardiology will continue to follow History of Present Illness Reason for Consultation: Respiratory failure, atrial fibrillation Requesting Physician: Patti hospitalist Attending Physician: Merritt Mcnair MD History of Present Illness Patient was seen and personally examined. Currently sedated and intubated. Information gained by discussion with sister and review of records Patient is an obese intubated male who per records was referred for additional care after increased confusion at home. Patient without recent formal medical care. Initiated intervention at [facility] were noted to be markedly hyponatremic. Transferred for additional care. Patient in atrial fibrillation on presentation of uncertain duration. Rates rapid but have come under control since improved respiratory status on ventilator and sedation without medical intervention. Currently on pressor support Sister adds patient sleeps in a chair chronically. Had urged patient to seek evaluation of chronic lower extremity edema for 7 years. Uses multiple herbal remedies at home. No prior history of cardiac disease but previously recommended to undergo evaluation Allergies Allergy/AdvReac Type Severity Reaction Status Date / Time No Known Allergies Allergy Unverified 10/05/24 23:21 Home Medications Medication Instructions Recorded Confirmed Type No Known Home Medications 10/05/24 10/05/24 History Patient History Social History Smoking Status: Current every day smoker Tobacco Type: Pipe Hx Alcohol Use: Yes Alcohol type: beer Hx Substance Use: No Preferred Language: Polish Communication Ability: Impaired Retail Event And Sales Assistant Required: No Beliefs That Will Affect Care: None Current Living Situation: Alone Other Information That Helps Us Care for You: No Feels Safe at Home: Yes Safety Concerns: Feels Safe At This Time Assistive Devices: Glasses Review of Systems Review of Systems: Unobtainable due to endotracheal tube Physical Exam Constitutional: + morbidly obese Neck: + thick neck Endotracheal tube in place Respiratory: no audible wheezes Cardiovascular: Rate/Rhythm: + irregularly irregular Heart Sounds: normal S1 and normal S2 Extremities: + edema (3+ lower extremity edema with chronic stasis changes) Gastrointestinal (Abdomen): Inspection/Auscultation: + abdomen distended Results & Data Vital Signs (Past 12 Hours) Vital Signs Temp Pulse Pulse Resp BP BP Pulse Ox 10/06/24 07:47 85 20 98 10/06/24 06:33 36.8 C 94 H 20 95 10/06/24 06:30 93/69 L 10/06/24 06:30 93/69 L 10/06/24 06:30 93/69 L 10/06/24 06:27 105 H 20 95 10/06/24 06:15 98/73 L 10/06/24 06:15 98/73 L 10/06/24 06:09 97 H 20 94 10/06/24 06:00 112/74 10/06/24 05:31 147/94 H 10/06/24 05:24 101 H 25 H 97 10/06/24 05:21 112 H 18 10/06/24 05:21 108/73 10/06/24 05:21 108/73 10/06/24 05:21 108/73 10/06/24 05:21 108/73 10/06/24 04:00 10/06/24 03:23 10/06/24 03:03 38.6 C H 102 H 20 93 10/06/24 03:00 83/61 L 10/06/24 03:00 105 H 20 91 10/06/24 02:54 38.7 C H 98 H 20 93 10/06/24 02:51 38.7 C H 106 H 20 92 10/06/24 02:42 38.7 C H 97 H 20 91 10/06/24 02:39 38.8 C H 97 H 20 91 10/06/24 02:15 38.9 C H 114 H 0 L 89 L 10/06/24 02:01 124/93 10/06/24 01:54 38.9 C H 108 H 15 10/06/24 01:27 38.9 C H 122 H 0 L 97 10/06/24 01:12 38.9 C H 104 H 0 L 98 10/06/24 01:00 39.0 C H 106 H 4 L 98 10/06/24 01:00 116/74 10/06/24 01:00 116/74 10/06/24 00:57 38.9 C H 112 H 4 L 98 10/06/24 00:42 38.8 C H 93 H 33 H 10/06/24 00:21 38.6 C H 112 H 34 H 96 10/06/24 00:15 38.6 C H 105 H 40 H 10/06/24 00:00 38.6 C H 115 H 23 10/06/24 00:00 10/05/24 23:57 38.6 C H 109 H 40 H 10/05/24 23:30 38.6 C H 100 H 33 H 91 10/05/24 23:21 38.6 C H 95 H 38 H 93 10/05/24 23:12 38.6 C H 103 H 34 H 95 10/05/24 23:00 10/05/24 23:00 38.6 C H 102 H 25 H 93 10/05/24 22:47 152/95 H 10/05/24 22:47 152/95 H 10/05/24 22:42 117 H 89 L 10/05/24 22:30 38.6 C H 122 H 22 152/95 H 92 O2 Del Method O2 Flow Rate FiO2 10/06/24 07:47 60 10/06/24 06:33 10/06/24 06:30 10/06/24 06:30 10/06/24 06:30 10/06/24 06:27 60 10/06/24 06:15 10/06/24 06:15 10/06/24 06:09 10/06/24 06:00 10/06/24 05:31 10/06/24 05:24 10/06/24 05:21 10/06/24 05:21 10/06/24 05:21 10/06/24 05:21 10/06/24 05:21 10/06/24 04:00 10/06/24 03:23 Mechanical Vent 10/06/24 03:03 10/06/24 03:00 10/06/24 03:00 100 10/06/24 02:54 10/06/24 02:51 10/06/24 02:42 10/06/24 02:39 10/06/24 02:15 10/06/24 02:01 10/06/24 01:54 10/06/24 01:27 10/06/24 01:12 10/06/24 01:00 10/06/24 01:00 10/06/24 01:00 10/06/24 00:57 10/06/24 00:42 10/06/24 00:21 10/06/24 00:15 10/06/24 00:00 10/06/24 00:00 100 10/05/24 23:57 10/05/24 23:30 10/05/24 23:21 10/05/24 23:12 10/05/24 23:00 Nasal Cannula 2 10/05/24 23:00 10/05/24 22:47 10/05/24 22:47 10/05/24 22:42 10/05/24 22:30 Nasal Cannula 2 Diagnostic Findings Laboratory Results - last 24 hr 10/05/24 10/05/24 10/05/24 23:16 23:43 Unknown WBC RBC Hgb Hct MCV MCH MCHC RDW Std Deviation RDW Coeff of Kishor Plt Count MPV Peripher Smr Path Cons Pending PT 13.0 H INR 1.2 H VBG pH 7.48 H Sodium 117 L* Potassium 3.5 Chloride 81 L Carbon Dioxide 27 Anion Gap 9 BUN 14 Creatinine 0.86 Est Cr Clr Drug Dosing 122.8 eGFR 93.73 BUN/Creatinine Ratio 16.3 Glucose 95 Estimat Average Glucose Hemoglobin A1c Osmolality 241 L Calcium 7.6 L Total Bilirubin 1.5 H Direct Bilirubin 1.0 H AST 52 H ALT 44 Alkaline Phosphatase 78 Troponin I High Sens Total Protein 6.1 Albumin 2.8 L Triglycerides Cholesterol LDL Cholesterol, Calc VLDL Cholesterol, Calc HDL Cholesterol Cholesterol/HDL Ratio Prostate Specific Ag Free PSA % Free PSA Procalcitonin 2.51 H TSH 0.276 L Free T4 0.91 Random Cortisol 38.15 Urine Osmolality Fluid Neutrophils % Fluid Lymphocytes % Fluid Eosinophils % Fl Monocyt/Macrophag % Fld Lyme DNA (PCR) Fluid Comment CSF Lyme IgG (Immblot) CSF Lyme IgG Band Pattern CSF Lyme IgM (Immblot) CSF Lyme IgM Band Pattern CSF C.neoform/gat PCR CSF CMV DNA (PCR) CSF Enterovirus (PCR) CSF E. coli K1 (PCR) CSF H. influenzae (PCR) CSF HSV I (PCR) CSF HSV II (PCR) CSF HHV 6 (PCR) CSF L.monocytogenes PCR CSF N. meningitidis PCR CSF Parechovirus (PCR) CSF S. agalactiae (PCR) CSF S. pneumoniae (PCR) CSF VZV DNA (PCR) CSF West Nile RNA Nasal Screen MRSA (PCR) Urine Opiates Screen Neg Ur Methadone, Qual Neg Urine Fentanyl Screen Neg Urine Barbiturates Neg Ur Phencyclidine (PCP) Neg U Amphetamin/Meth Scrn Neg MDMA (Ecstasy) Screen Neg U Benzodiazepines Scrn Neg Ur Cocaine Metabolite Neg U Marijuana (THC) Screen Neg Thyroid Antimicrosomal Thyroglobulin Antibody RPR Resp to Therapy Treponema pallidum Ab Adenovirus (PCR) Anaplasma Smear See Comment A Anaplasma Comment Pending Babesia Smear See Comment Babesia microti DNA PCR Pending B. pertussis DNA (PCR) B.parapertussis DNA PCR Lyme Specimen Source Lyme Disease Screen Positive H Lyme Tier 2 IgG Confirm Positive H Lyme Tier 2 IgM Confirm Positive H Lyme DNA Comment C. pneumoniae DNA (PCR) Coronavirus OC43 (PCR) Coronavirus HKU1 (PCR) Coronavirus 229E (PCR) SARS-CoV-2 (PCR) Coronavirus NL63 (PCR) Cryptococcus Source Cryptococcal Ag (Latex) West Nile Virus Source Hepatitis A IgM Ab Hep Bs Antigen Hep B Core IgM Ab Hepatitis C Antibody HIV-1 RNA copies/mL HIV-1 RNA logcopies/mL Human Metapneumovir PCR Influenza Type A (PCR) Influenza Type B (PCR) L.pneumophila IgM Ab Urine Legionella Ag M. pneumoniae (PCR) Parainfluenza 1 (PCR) Parainfluenza 2 (PCR) Parainfluenza 3 (PCR) Parainfluenza 4 (PCR) RSV (PCR) Entero/Rhino (PCR) S.pneumoniae Type 1 IgG Pending S.pneumoniae Type 3 IgG Pending S.pneumoniae Type 4 IgG Pending S.pneumoniae Type 5 IgG Pending S.pneumoniae Type 8 IgG Pending S.pneumoniae 9 (9N) IgG Pending S.pneumon 12 (12F) IgG Pending S.pneumoniae Typ 14 IgG Pending S.pneumon 19 (19F) IgG Pending S.pneumon 23 (23F) IgG Pending S.pneumon 26 (6B) IgG Pending S.pneumon 51 (7F) IgG Pending S.pneumon 56 (18C) IgG Pending S.pneumon 68 (9V) IgG Pending Pneumococcal Type 2 Ab Pending Pneumococcal Typ 17F Ab Pending Pneumococcal Type 20 Ab Pending Pneumococcal Typ 22F Ab Pending Pneumococcal Type 34 Ab Pending Pneumococcal Type 43 Ab Pending Pneumococcal Type 54 Ab Pending Pneumococcal Type 57 Ab Pending Pneumococcal Type 70 Ab Pending 10/06/24 10/06/24 10/06/24 00:18 01:10 02:00 WBC RBC Hgb Hct MCV MCH MCHC RDW Std Deviation RDW Coeff of Kishor Plt Count MPV Peripher Smr Path Cons PT INR VBG pH Sodium Potassium Chloride Carbon Dioxide Anion Gap BUN Creatinine Est Cr Clr Drug Dosing eGFR BUN/Creatinine Ratio Glucose Estimat Average Glucose Hemoglobin A1c Osmolality Calcium Total Bilirubin Direct Bilirubin AST ALT Alkaline Phosphatase Troponin I High Sens Total Protein Albumin Triglycerides Cholesterol LDL Cholesterol, Calc VLDL Cholesterol, Calc HDL Cholesterol Cholesterol/HDL Ratio Prostate Specific Ag Free PSA % Free PSA Procalcitonin TSH Free T4 Random Cortisol Urine Osmolality Fluid Neutrophils % 11 Fluid Lymphocytes % 21 Fluid Eosinophils % 2 Fl Monocyt/Macrophag % 66 Fld Lyme DNA (PCR) Cancelled Fluid Comment CSF Lyme IgG (Immblot) Cancelled CSF Lyme IgG Band Pattern Cancelled CSF Lyme IgM (Immblot) Cancelled CSF Lyme IgM Band Pattern Cancelled CSF C.neoform/gat PCR Cancelled CSF CMV DNA (PCR) Cancelled CSF Enterovirus (PCR) Cancelled CSF E. coli K1 (PCR) Cancelled CSF H. influenzae (PCR) Cancelled CSF HSV I (PCR) Cancelled CSF HSV II (PCR) Cancelled CSF HHV 6 (PCR) Cancelled CSF L.monocytogenes PCR Cancelled CSF N. meningitidis PCR Cancelled CSF Parechovirus (PCR) Cancelled CSF S. agalactiae (PCR) Cancelled CSF S. pneumoniae (PCR) Cancelled CSF VZV DNA (PCR) Cancelled CSF West Nile RNA Cancelled Nasal Screen MRSA (PCR) Negative Urine Opiates Screen Ur Methadone, Qual Urine Fentanyl Screen Urine Barbiturates Ur Phencyclidine (PCP) U Amphetamin/Meth Scrn MDMA (Ecstasy) Screen U Benzodiazepines Scrn Ur Cocaine Metabolite U Marijuana (THC) Screen Thyroid Antimicrosomal Thyroglobulin Antibody RPR Resp to Therapy Treponema pallidum Ab Adenovirus (PCR) Anaplasma Smear Anaplasma Comment Babesia Smear Babesia microti DNA PCR B. pertussis DNA (PCR) B.parapertussis DNA PCR Lyme Specimen Source Cancelled Lyme Disease Screen Lyme Tier 2 IgG Confirm Lyme Tier 2 IgM Confirm Lyme DNA Comment Cancelled C. pneumoniae DNA (PCR) Coronavirus OC43 (PCR) Coronavirus HKU1 (PCR) Coronavirus 229E (PCR) SARS-CoV-2 (PCR) Coronavirus NL63 (PCR) Cryptococcus Source Cancelled Cryptococcal Ag (Latex) Cancelled West Nile Virus Source Cancelled Hepatitis A IgM Ab Hep Bs Antigen Hep B Core IgM Ab Hepatitis C Antibody HIV-1 RNA copies/mL HIV-1 RNA logcopies/mL Human Metapneumovir PCR Influenza Type A (PCR) Influenza Type B (PCR) L.pneumophila IgM Ab Urine Legionella Ag M. pneumoniae (PCR) Parainfluenza 1 (PCR) Parainfluenza 2 (PCR) Parainfluenza 3 (PCR) Parainfluenza 4 (PCR) RSV (PCR) Entero/Rhino (PCR) S.pneumoniae Type 1 IgG S.pneumoniae Type 3 IgG S.pneumoniae Type 4 IgG S.pneumoniae Type 5 IgG S.pneumoniae Type 8 IgG S.pneumoniae 9 (9N) IgG S.pneumon 12 (12F) IgG S.pneumoniae Typ 14 IgG S.pneumon 19 (19F) IgG S.pneumon 23 (23F) IgG S.pneumon 26 (6B) IgG S.pneumon 51 (7F) IgG S.pneumon 56 (18C) IgG S.pneumon 68 (9V) IgG Pneumococcal Type 2 Ab Pneumococcal Typ 17F Ab Pneumococcal Type 20 Ab Pneumococcal Typ 22F Ab Pneumococcal Type 34 Ab Pneumococcal Type 43 Ab Pneumococcal Type 54 Ab Pneumococcal Type 57 Ab Pneumococcal Type 70 Ab 10/06/24 10/06/24 10/06/24 02:16 02:34 03:29 WBC RBC Hgb Hct MCV MCH MCHC RDW Std Deviation RDW Coeff of Kisohr Plt Count MPV Peripher Smr Path Cons PT INR VBG pH Sodium 116 L* Potassium 3.4 L Chloride 82 L Carbon Dioxide 28 Anion Gap 6 BUN 15 Creatinine 1.05 Est Cr Clr Drug Dosing 100.6 eGFR 76.84 BUN/Creatinine Ratio 14.3 Glucose 138 H Estimat Average Glucose 140 Hemoglobin A1c 6.5 H Osmolality Calcium 7.4 L Total Bilirubin Direct Bilirubin AST ALT Alkaline Phosphatase Troponin I High Sens Total Protein Albumin Triglycerides 194 H Cholesterol 108 LDL Cholesterol, Calc 58 VLDL Cholesterol, Calc 39 H HDL Cholesterol 11 Cholesterol/HDL Ratio 9.8 H Prostate Specific Ag 4.585 H Free PSA 0.60 % Free PSA 13.1 Procalcitonin TSH Free T4 Random Cortisol Urine Osmolality Fluid Neutrophils % Fluid Lymphocytes % Fluid Eosinophils % Fl Monocyt/Macrophag % Fld Lyme DNA (PCR) Fluid Comment CSF Lyme IgG (Immblot) CSF Lyme IgG Band Pattern CSF Lyme IgM (Immblot) CSF Lyme IgM Band Pattern CSF C.neoform/gat PCR CSF CMV DNA (PCR) CSF Enterovirus (PCR) CSF E. coli K1 (PCR) CSF H. influenzae (PCR) CSF HSV I (PCR) CSF HSV II (PCR) CSF HHV 6 (PCR) CSF L.monocytogenes PCR CSF N. meningitidis PCR CSF Parechovirus (PCR) CSF S. agalactiae (PCR) CSF S. pneumoniae (PCR) CSF VZV DNA (PCR) CSF [place] RNA Nasal Screen MRSA (PCR) Urine Opiates Screen Ur Methadone, Qual Urine Fentanyl Screen Urine Barbiturates Ur Phencyclidine (PCP) U Amphetamin/Meth Scrn MDMA (Ecstasy) Screen U Benzodiazepines Scrn Ur Cocaine Metabolite U Marijuana (THC) Screen Thyroid Antimicrosomal Pending Thyroglobulin Antibody Pending RPR Resp to Therapy Pending Treponema pallidum Ab Negative Adenovirus (PCR) Anaplasma Smear Anaplasma Comment Babesia Smear Babesia microti DNA PCR B. pertussis DNA (PCR) B.parapertussis DNA PCR Lyme Specimen Source Lyme Disease Screen Lyme Tier 2 IgG Confirm Lyme Tier 2 IgM Confirm Lyme DNA Comment C. pneumoniae DNA (PCR) Coronavirus OC43 (PCR) Coronavirus HKU1 (PCR) Coronavirus 229E (PCR) SARS-CoV-2 (PCR) Coronavirus NL63 (PCR) Cryptococcus Source Cryptococcal Ag (Latex) West Nile Virus Source Hepatitis A IgM Ab Pending Hep Bs Antigen Negative Hep B Core IgM Ab Pending Hepatitis C Antibody Negative HIV-1 RNA copies/mL Pending HIV-1 RNA logcopies/mL Pending Human Metapneumovir PCR Influenza Type A (PCR) Influenza Type B (PCR) L.pneumophila IgM Ab Pending Urine Legionella Ag M. pneumoniae (PCR) Parainfluenza 1 (PCR) Parainfluenza 2 (PCR) Parainfluenza 3 (PCR) Parainfluenza 4 (PCR) RSV (PCR) Entero/Rhino (PCR) S.pneumoniae Type 1 IgG S.pneumoniae Type 3 IgG S.pneumoniae Type 4 IgG S.pneumoniae Type 5 IgG S.pneumoniae Type 8 IgG S.pneumoniae 9 (9N) IgG S.pneumon 12 (12F) IgG S.pneumoniae Typ 14 IgG S.pneumon 19 (19F) IgG S.pneumon 23 (23F) IgG S.pneumon 26 (6B) IgG S.pneumon 51 (7F) IgG S.pneumon 56 (18C) IgG S.pneumon 68 (9V) IgG Pneumococcal Type 2 Ab Pneumococcal Typ 17F Ab Pneumococcal Type 20 Ab Pneumococcal Typ 22F Ab Pneumococcal Type 34 Ab Pneumococcal Type 43 Ab Pneumococcal Type 54 Ab Pneumococcal Type 57 Ab Pneumococcal Type 70 Ab 10/06/24 10/06/24 10/06/24 07:37 08:23 Unknown WBC 6.31 RBC 3.67 L Hgb 10.5 L Hct 29.6 L MCV 80.7 MCH 28.6 MCHC 35.5 RDW Std Deviation 41.5 RDW Coeff of Kishor 14.0 Plt Count 126 L MPV 10.3 Peripher Smr Path Cons PT INR VBG pH Sodium 118 L* Potassium 3.9 Chloride 82 L Carbon Dioxide 28 Anion Gap 8 BUN 17 Creatinine 1.15 Est Cr Clr Drug Dosing 91.9 eGFR 68.89 BUN/Creatinine Ratio 14.8 Glucose 145 H Estimat Average Glucose Hemoglobin A1c Osmolality Calcium 7.3 L Total Bilirubin Direct Bilirubin AST ALT Alkaline Phosphatase Troponin I High Sens 29.8 H Total Protein Albumin Triglycerides Cholesterol LDL Cholesterol, Calc VLDL Cholesterol, Calc HDL Cholesterol Cholesterol/HDL Ratio Prostate Specific Ag Free PSA % Free PSA Procalcitonin TSH Free T4 Random Cortisol Urine Osmolality 396 L Fluid Neutrophils % Fluid Lymphocytes % Fluid Eosinophils % Fl Monocyt/Macrophag % Fld Lyme DNA (PCR) Fluid Comment CSF Lyme IgG (Immblot) CSF Lyme IgG Band Pattern CSF Lyme IgM (Immblot) CSF Lyme IgM Band Pattern CSF C.neoform/gat PCR CSF CMV DNA (PCR) CSF Enterovirus (PCR) CSF E. coli K1 (PCR) CSF H. influenzae (PCR) CSF HSV I (PCR) CSF HSV II (PCR) CSF HHV 6 (PCR) CSF L.monocytogenes PCR CSF N. meningitidis PCR CSF Parechovirus (PCR) CSF S. agalactiae (PCR) CSF S. pneumoniae (PCR) CSF VZV DNA (PCR) CSF [place] RNA Nasal Screen MRSA (PCR) Urine Opiates Screen Ur Methadone, Qual Urine Fentanyl Screen Urine Barbiturates Ur Phencyclidine (PCP) U Amphetamin/Meth Scrn MDMA (Ecstasy) Screen U Benzodiazepines Scrn Ur Cocaine Metabolite U Marijuana (THC) Screen Thyroid Antimicrosomal Thyroglobulin Antibody RPR Resp to Therapy Treponema pallidum Ab Adenovirus (PCR) Not Detected Anaplasma Smear Anaplasma Comment Babesia Smear Babesia microti DNA PCR B. pertussis DNA (PCR) Not Detected B.parapertussis DNA PCR Not Detected Lyme Specimen Source Lyme Disease Screen Lyme Tier 2 IgG Confirm Lyme Tier 2 IgM Confirm Lyme DNA Comment C. pneumoniae DNA (PCR) Not Detected Coronavirus OC43 (PCR) Not Detected Coronavirus HKU1 (PCR) Not Detected Coronavirus 229E (PCR) Not Detected SARS-CoV-2 (PCR) Not Detected Coronavirus NL63 (PCR) Not Detected Cryptococcus Source Cryptococcal Ag (Latex) West Nile Virus Source Hepatitis A IgM Ab Hep Bs Antigen Hep B Core IgM Ab Hepatitis C Antibody HIV-1 RNA copies/mL HIV-1 RNA logcopies/mL Human Metapneumovir PCR Not Detected Influenza Type A (PCR) Not Detected Influenza Type B (PCR) Not Detected L.pneumophila IgM Ab Urine Legionella Ag Pending M. pneumoniae (PCR) Not Detected Parainfluenza 1 (PCR) Not Detected Parainfluenza 2 (PCR) Not Detected Parainfluenza 3 (PCR) Not Detected Parainfluenza 4 (PCR) Not Detected RSV (PCR) Not Detected Entero/Rhino (PCR) Not Detected S.pneumoniae Type 1 IgG S.pneumoniae Type 3 IgG S.pneumoniae Type 4 IgG S.pneumoniae Type 5 IgG S.pneumoniae Type 8 IgG S.pneumoniae 9 (9N) IgG S.pneumon 12 (12F) IgG S.pneumoniae Typ 14 IgG S.pneumon 19 (19F) IgG S.pneumon 23 (23F) IgG S.pneumon 26 (6B) IgG S.pneumon 51 (7F) IgG S.pneumon 56 (18C) IgG S.pneumon 68 (9V) IgG Pneumococcal Type 2 Ab Pneumococcal Typ 17F Ab Pneumococcal Type 20 Ab Pneumococcal Typ 22F Ab Pneumococcal Type 34 Ab Pneumococcal Type 43 Ab Pneumococcal Type 54 Ab Pneumococcal Type 57 Ab Pneumococcal Type 70 Ab Echocardiogram 10/06/2024 Normal left exercise with moderate left hypertrophy Borderline global hypokinesis EF 50-55% Mild left atrial dilatation No significant valvular disease Dilated inferior vena cava PG Care Time/CCT Total # of Minutes Spent Total Time Spent with Patient: Total time spent is greater than 50% in coordination of care (as documented) at patient's floor/unit and/or counseling patient: Coding Level of Care Code 82754 IN/OBS CONSULT LVL 5,80M Diagnoses Atrial fibrillation I48.91 Encephalopathy G93.40 Hyponatremia with decreased serum osmolality E87.1
[2024-10-06 10:29] LABS: ALC (manual) 1.77 K/uL (1.2-3.4); ANC (manual) 4.29 K/uL (1.4-6.5); Polychromasia 1+; Reactive Lymphocytes # (manual) 0.82 K/uL; Reactive Lymphocytes % (manual) 13 %; Toxic Vacuolation 1+
[2024-10-06] MEDS ORDERED: MIDAZOLAM HCL 5 MG/ML 2ML VIAL IV ONE (10:52)
[2024-10-06] MEDS ORDERED: ROCURONIUM BROMIDE 10 MG/ML 5 ML VIAL IV ONE (10:52)
[2024-10-06] MEDS ORDERED: KETAMINE HCL INJ 50 MG/ML 10 ML VIAL IV ONE (10:52)
[2024-10-06 12:01] LABS: Anion Gap 7.0 (3-11); Blood Urea Nitrogen 18.0 mg/dl (6-23); Calcium 7.4 mg/dl (8.6-10.3); Carbon Dioxide 28.0 mmol/L (21-32); Chloride 83.0 mmol/L (98-107); Creatinine Clr Calc Pharmacy 84.5 ml/min; Glucose 128.0 mg/dl (70-99(Fasting)); Potassium 3.7 mmol/L (3.5-5.1); Sodium 118.0 mmol/L (136-145)
--- NOTE | 2024-10-06 12:20 | Communication Note ---
Patient presented to OSH with confusion, found to have acute hyponatremia, intubated for airway protection in setting of severe metabolic encephalopathy, transferred to [facility] for further workup and stabilization. Intubated and sedated at this time. Xr chest with bilateral atelectasis, pleural effusions, and likely right/left sided infiltrates consistent with fluid overload and CAP. Na of 118 improved from 113, serum osmole of 241 with urine osmole of 396 (and hypothyroidism/adrenal insufficiency unlikely given labs) suggestive of hypovolemia vs. hypervolemia, however no urine sodium on file at this facility (albeit apparently less than 20). Last weight in EMR from 2009 but appears to be significantly higher than prior BMI 37 at that time. Positive Lyme and anaplasmosis titers suggestive of active infection. CSF fluid without neutrophilic shift but given symptoms high risk for meningitis. Urine sodium add on is less than 10. Elevated direct bilirubin and elevated AST suggestive of underlying liver disease vs. underlying acute process of liver. Complex case given lack of medical history. Hypoosmolar hyponatremia in setting of volume overload, possibly from heart failure vs. underlying liver disease vs. less likely nephrotic syndrome, SIADH, dehydration, diarrhea, vomiting. Medical management in general per ICU care, much appreciated. Will check US liver with Doppler for consideration of underlying cirrhosis and rule out budd chiari syndrome vs. underlying blockage. Check ionized calcium, urinalysis, mag, phos to complete metabolic workup. Date of Service: October 06, 2024
--- NOTE | 2024-10-06 12:24 | Communication Note ---
Date of Service: October 06, 2024 Clinical update: Patient's limited CSF specimen demonstrated gram-positive organisms on Gram stain, therefore I think it is reasonable to continue broad antibiotics at this time. Reassuring given MRI with lack of findings however I have ordered a CT-guided MRI to be performed Monday. Nolan that PCR panel should remain positive despite being on antibiotics. Additionally patient was not given steroids because of significant hyponatremia and DDAVP. I feel the benefits of steroids outweigh the risks related to the hyponatremia. Patient found to have atrial fibrillation, holding systemic anticoagulation at this time secondary to need for additional neuraxial procedures. I am starting heparin subcu 7500 mg 3 times daily for DVT prophylaxis in the interim, tomorrow morning dose to be held given anticipation for LP. Patient's PSA is minimally elevated, free PSA with within normal limits. This can be followed up as an outpatient. RPR is negative, acute hepatitis panel still pending (hepatitis B and C are negative) respiratory BioFire is negative still awaiting urine Legionella, RPR is negative I discussed the case with pathology regarding findings, he will remain on broad- spectrum antibiotics given concern for underlying infection in the setting of significant cephalopathy. Awaiting ID consultation. Reviewed cardiology co nsult. I updated the patient's sister on current findings. Patient to remain intubated until able to obtain CT guided LP. I have personally spent 60 minutes of critical care time in the direct ma nagement of this patient. This is a life/limb threatening event. This includes time spent evaluating patient, direct bedside care, chart review, placing orders, interpretation of diagnostic studies, discussion with consultants, patient, and/or family members regarding treatment decisions, as well as other required patient management activities. This time is exclusive of all separately billable procedures, and teaching time and separate from and in addition to any other critical care service time. Coding Level of Care Code 97883 CRITICAL CARE EA ADD 30M Additional Critical Care Time Additional 30min Critical Care Time: Yes - 11825 x 2 (60 addl min) Additional Codes Critical Care Time - Additional 30min Critical Care Time: Yes - 18002 x 2 (60 addl min) ([id number])
--- NOTE | 2024-10-06 12:28 | Pharmacy Report ---
Pharmacy PK ABX Note - Date of Service October 06, 2024 - Assessment and Plan Assessment * 68 year old M critically ill in ICU, intubated and on pressors, receiving ampicillin, ceftriaxone, vancomycin, doxycycline, azithromycin, and acyclovir for confirmed anaplasmosis and possible Lyme, meningitis, and/or pneumonia * Pertinent microbiologic data includes * 10/05 Blood cultures: NGTD * 10/05 Anaplasma: POSITIVE * 10/05 Lyme IgM/IgG: both positive (active infection possible, though persistence of positive antibodies from prior infection cannot be excluded) * 10/06 BAL: pending * 10/06 CSF culture: GPC on gram stain * 10/06 CSF serology: pending * SCr acutely rising from admission. Will dose vancomycin via level Plan Vancomycin * Target AUC/VICTORINO of 400-600 mg/L.hr, once renal function stabilizes. However, will dose via level for now 2nd acutely changing SCr. Goal trough ~15 mcg/mL * Loading dose: 2750 mg IV x 1 * Random level of 16.2 mcg/mL associated with a likely therapeutic level * Will give one-time additional dose of 10 mg/kg (1500 mg) IV and re-order level for tomorrow AM Pharmacy will continue to follow and will adjust dose/frequency as necessary. Thank you. Pharmacy has transitioned to AUC monitoring for vancomycin. AUC/VICTORINO is the pr eferred PK/PD target and is associated with decreased risk of nephrotoxicity compared to traditional trough targets.
[2024-10-06] MEDS: ACYCLOVIR SOD 1,000 MG in DEXTROSE 5% 250 ML IV SCH (12:43)
[2024-10-06] MEDS: AMPICILLIN 2,000 MG in SODIUM CHLOR 0.9% MINI-B 100 ML IV SCH (14:18)
[2024-10-06] MEDS: HEPARIN SOD 5,000 UNIT/0.5 ML VIAL SQ SCH (14:19)
[2024-10-06] MEDS: VANCOMYCIN HCL 1,500 MG in SODIUM CHLORIDE 0.9% 500 ML IV SCH (14:20)
[2024-10-06 15:39] LABS: Anion Gap 7.0 (3-11); Blood Urea Nitrogen 22.0 mg/dl (6-23); Calcium 7.2 mg/dl (8.6-10.3); Carbon Dioxide 28.0 mmol/L (21-32); Chloride 82.0 mmol/L (98-107); Creatinine Clr Calc Pharmacy 74.4 ml/min; Glucose 138.0 mg/dl (70-99(Fasting)); Magnesium 2.1 mg/dl (1.7-2.4); Potassium 3.5 mmol/L (3.5-5.1); Sodium 117.0 mmol/L (136-145)
[2024-10-06 16:12] LABS: Appearance Urine Turbid (Clear); Bacteria Urine Automated None Seen (None Seen); Glucose Urine UA Negative (Negative); RBC Urine Automated >20 /hpf (0-2); WBC Urine Automated 21-50 /hpf (0-5)
[2024-10-06 20:23] LABS: Anion Gap 7.0 (3-11); Blood Urea Nitrogen 24.0 mg/dl (6-23); Calcium 7.3 mg/dl (8.6-10.3); Carbon Dioxide 28.0 mmol/L (21-32); Chloride 83.0 mmol/L (98-107); Creatinine Clr Calc Pharmacy 69.5 ml/min; Glucose 106.0 mg/dl (70-99(Fasting)); Potassium 3.5 mmol/L (3.5-5.1); Sodium 118.0 mmol/L (136-145)
--- NOTE | 2024-10-06 23:55 | Ultrasound Report ---
Exam(s): US OTHER DUPLEX PORTAL HEPATIC VEINS EXAM: US Duplex hepatic Veins CLINICAL HISTORY: Reason for exam: r/o clot. TECHNIQUE: Real-time duplex ultrasound scan of the liver integrating B-mode two- dimensional vascular structures, Doppler spectral analysis with color flow Doppler imaging. COMPARISON: No relevant prior studies available. FINDINGS: The hepatic veins are all patent. The main portal vein and the right and left portal veins are patent. The velocity in the main portal vein was 18.2 cm/s. There is a pattern pedal flow noted. No intraluminal thrombi are identified. The main hepatic artery is patent. The velocity was 47 cm/s. The resistive index is 0.71. The splenic vein is patent. IMPRESSION: The hepatic vessels are all patent. . Electronically signed by: Fidel Macdonald MD 10/06/24 23:55 PM
--- NOTE | 2024-10-06 23:55 | Ultrasound Report ---
Exam(s): US LIVER EXAM: US Abdomen Limited, Right Upper Quadrant CLINICAL HISTORY: Reason for exam: consideration for cirrhosis, r/o portal clot. TECHNIQUE: Real-time ultrasound of the right upper quadrant with image documentation. COMPARISON: No relevant prior studies available. FINDINGS: Liver: The liver is enlarged and of increased echogenicity.. No intrahepatic bile duct dilation. There is a 2.7 cm cyst noted in the right lobe of the liver. Gallbladder: The gallbladder wall measured 3.8 mm. No gallstones. Common bile duct: Unremarkable as visualized. No stones. The common bile duct measured 3.9 mm.. Pancreas: The pancreas is limitedly visualized. The visualized portions are unremarkable.. Right kidney: . No stones. No hydronephrosis. IMPRESSION: The liver is enlarged and of increased echogenicity which may be due to fatty infiltration and/or hepatocellular disease.. There is a 2.7 cm cyst noted in the right lobe of the liver. Electronically signed by: Fidel Macdonald MD 10/06/24 23:54 PM
[2024-10-07 00:05] LABS: Anion Gap 7.0 (3-11); Blood Urea Nitrogen 25.0 mg/dl (6-23); Calcium 7.3 mg/dl (8.6-10.3); Carbon Dioxide 27.0 mmol/L (21-32); Chloride 83.0 mmol/L (98-107); Creatinine Clr Calc Pharmacy 64.0 ml/min; Glucose 107.0 mg/dl (70-99(Fasting)); Potassium 3.5 mmol/L (3.5-5.1); Sodium 117.0 mmol/L (136-145)
[2024-10-07] MEDS: FUROSEMIDE INJ 20 MG/2 ML VIAL IV ONE (00:21)
[2024-10-07 03:51] LABS: Hematocrit (blood only) 28.7 % (42.0-52.0); Hemoglobin 10.2 g/dl (14.0-18.0); Mean Corpuscular Hemoglobin 28.4 pg (25.0-34.0); Mean Corpuscular Volume 79.9 fL (80.0-100.0); Platelet Count 149 K/uL (130-400); RDW Standard Deviation 41.8 fL (36.4-46.3); Red Blood Count 3.59 M/uL (4.70-6.10); Reticulocytes # 0.030 10^6/uL (0.020-0.100); White Blood Count 7.19 K/ul (4.8-10.8)
[2024-10-07 04:05] LABS: Iron 55.0 mcg/dl (35-175); Transferrin 145.0 mg/dl (200-360)
[2024-10-07 04:10] LABS: Anion Gap 8.0 (3-11); Blood Urea Nitrogen 28.0 mg/dl (6-23); Calcium 7.3 mg/dl (8.6-10.3); Carbon Dioxide 28.0 mmol/L (21-32); Chloride 83.0 mmol/L (98-107); Creatinine Clr Calc Pharmacy 58.5 ml/min; Glucose 116.0 mg/dl (70-99(Fasting)); Potassium 3.4 mmol/L (3.5-5.1); Sodium 119.0 mmol/L (136-145)
[2024-10-07 04:32] LABS: Folate (Folic Acid),Ser orPlas 8.26 ng/ml (>5.38); Vitamin B12 1346.0 pg/ml (180-914)
[2024-10-07 04:38] LABS: iSTAT Art Bld Gas Base Excess 2.0 meg/L (-9-1.8); iSTAT Art Bld Gas pCO2 Correct 32 mmHg (35-46); iSTAT Art Bld Gas pH Corrected 7.501 (7.35-7.45); iSTAT Arterial Blood Gas pO2 C 74
[2024-10-07 04:41] LABS: ALC (manual) 3.09 K/uL (1.2-3.4); ANC (manual) 3.88 K/uL (1.4-6.5); Polychromasia 1+; Reactive Lymphocytes # (manual) 1.44 K/uL; Reactive Lymphocytes % (manual) 20 %; Toxic Vacuolation 1+
[2024-10-07 05:03] LABS: Ferritin 1296.0 ng/ml (8-388)
[2024-10-07] MEDS: POTASSIUM CHLORIDE / WTR 20 MEQ/100 ML PLCT IV SCH (05:09)
--- NOTE | 2024-10-07 07:23 | Critical Care Progress Note ---
Date of Service October 07, 2024 Assessment & Plan (1) Thyroid nodule: (2) Anaplasmosis: (3) Lyme disease: (4) Hyponatremia with decreased serum osmolality: (5) Encephalopathy: Plan Reason Critically Ill: 68 YOM presents encephalopathic, febrile, hyponatremic. Concern for central nervous system infection as well as severe hyponatremia. Neuro - Encephalopathy CAM ICU: UMM - Patient with multitude of vector/risks for SACK CLEANING HAND type of infection - LP will be attempted- see separate procedure note- as sample was bloody and clotted- currently only able to be tested was lyme and crptococcal - if enough sample left biofire panel will be attempted - volume was small and bloody that was starting to clot in the tube - MRI with and without contrast to eval for abscess/ventriculitis/encephalitis/meningitis or evidence of other demyelinating processes - blood cultures x2 - Tick panel- Babesia/anaplasmosis/lyme - Will send RPR with reflex - HIV sent - Patient will be empircally treated with - Amp, acyclovir, Azithro, Rocephin, Doxycycline, and Vancomycin until clinical picture becomes more clear and/or culture data becomes more revealing - Hold on steroids at this time as he is without nuchal rigidity or headaches - ID consultation appreciated - TSH - cortisol - Fentanyl and Propofol for sedation - when weaning change to Precedex wean/extubation Cardiac - edema, elevated BNP, - Patient with pitting edema from mid thigh to lower extremities bilaterally- difficult to ascertain into abdomen or sacral area secondary to body habitus - BNP markedly elevated at 3k - As his hyponatremia has been rapidly corrected prior to arrival- will hold on diuresis at this time- pending clinical course of NA will determine diuresis option - ECHO in am - ECG without STEMI - At this time hold on anticoagulation Respiratory - Intubated requiring mechanical ventilation, concern for pneumonia - Intubated for diagnostic work up and encephalopathy - pleural effusions at this time likely secondary to fluid volume status- likely new onset HG - haziness/opacifications bilaterally on CXR- concern for infective process - legionella urine pending - strep pneumo pending - Continue Azithro, Doxy, Rocephin for pulmonary sources - Bronch samples sent from [facility] following intubation GI - No acute needs - OGT to LIWS RENAL/LYTES - Severe hyponatremia, other electrolyte disturbances - Hypoosmolar hyponatremia- with Urinary NA < 20 - at this time likely secondary to HF however may be exacerbated by or accompanied by other infective cause - Hypertonic NA in the form of 8.4% NAHCO3 administered prior to arrival at [facility]- now with NA level 118- 5mmol correction in few hours - with the severity of his hyponatremia- he is at risk for ODS - goal of correction will be aimed at slow and steady 6-8mmol in 24 hours - DDAVP 2mcg IV q8 - D5W at 100 ml/hr to slow rate of correction- he is also receiving multiple abx mixed in saline and D5 as well- once this volume is infused will re-calculate D5 - Diurese as above when NA levels stabilize - Enlarged prostate seen on CT ab/pel - renal function normal - await UA/culture- continue with villalta ENDO - abnormal TSH, thyroid nodule - can likely proceed with outpatient workup when stable - could also consider ultrasound of thyroid in house if he stabilizes+ HEME - See ID ID - - Concern for SACK CLEANING HAND infection as above - His lyme and anaplasmosis was immediately positive with path confirm on anaplasmosis- doxy 200mg IV now and then q12 - Azithromycin for concern for atypical pneumonia - Rocephin and Vanco for SACK CLEANING HAND and CAP and possible skin - Amp for listeria prevention - Acyclovir for concern of SACK CLEANING HAND infx - ID consulted LINES/IV ACCESS - CVL, PIV, ETT, Villalta, OGT Continue use of these lines DVT PROPHYLAXIS - SCDS, hold on chemoprophylaxis until LP obtained DISPO: ICU while intubated and sedated and until NA correction stable and at least 120-125 I have personally spent 55 minutes of critical care time in the direct management of this patient. This is a life/limb threatening event. This includes time spent evaluating patient, direct bedside care, chart review, placing orders, interpretation of diagnostic studies, discussion with consultants, patient, and family members, as well as other required patient management activities. This time is exclusive of all separately billable procedures, and teaching time and separate from and in addition to any other critical care service time. Thank you for allowing us to participate in the care of this patient. Please refer to my attending physician's documentation for any further recommendations Admission and Anticipated Discharge Date Admission Date: October 06, 2024 Subjective No acute events over night. This morning, pt remains sedated and intubated. Physical Exam Physical Exam: PHYSICAL EXAM: General: Sedated, intubated ENT: PERRLA, tracks you around the room, mucous membranes dry. Resp: equal rise and fall of the chest, abdominal breathing, difficult assessment secondary to body habitus and chest hair Cardiac: Regular rate and rhythm, telemetry reviewed- NSR, skin warm dry, cap refill <3 seconds, peripheral pulses +1, GI: Normoactive bowel sounds x 4 quadrants, obese, distended : Villalta draining geo urine Skin: scarred and open areas to bilateral upper arms, pedunculated lesions to bilateral lower legs, heels, onychomycosis severe to toes, excoriated groin and breast folds Neuro: AAO x1, speech slurred and inappropriate, strength intact bilaterally 5/5, sensation intact in all extremities, no facial droop, Results & Data Results & Data Vital Signs (Past 12 Hours) Vital Signs Temp Pulse Resp BP Pulse Ox O2 Del Method FiO2 10/07/24 06:42 36.1 C L 87 16 97 10/07/24 06:36 36.1 C L 90 16 96 10/07/24 06:26 88/67 L 10/07/24 06:24 36.1 C L 86 16 97 10/07/24 06:21 36.1 C L 92 H 16 97 10/07/24 06:18 36.1 C L 93 H 16 97 10/07/24 06:00 36.1 C L 77 16 97 10/07/24 05:56 91/65 L 10/07/24 05:56 91/65 L 10/07/24 05:56 91/65 L 10/07/24 05:54 36.1 C L 90 16 97 10/07/24 05:45 36.1 C L 88 16 96 10/07/24 05:36 36.1 C L 91 H 16 96 10/07/24 05:26 104/61 10/07/24 05:24 36.1 C L 83 16 96 10/07/24 05:21 36.1 C L 95 H 16 96 10/07/24 05:18 36.1 C L 82 16 96 10/07/24 05:00 36.1 C L 81 16 96 10/07/24 04:56 93/58 L 10/07/24 04:56 93/58 L 10/07/24 04:54 36.0 C L 88 16 96 10/07/24 04:51 36.0 C L 93 H 16 96 10/07/24 04:48 36.0 C L 84 16 96 10/07/24 04:41 16 35 10/07/24 04:30 36.1 C L 91 H 20 96 10/07/24 04:27 99/58 L 10/07/24 04:12 36.1 C L 102 H 20 96 10/07/24 04:03 36.2 C L 92 H 20 95 10/07/24 04:00 35 10/07/24 03:57 36.2 C L 96 H 20 95 10/07/24 03:57 130/78 10/07/24 03:52 81 20 95 35 10/07/24 03:51 36.2 C L 89 20 95 10/07/24 03:42 36.2 C L 91 H 20 96 10/07/24 03:03 36.2 C L 87 20 97 10/07/24 02:51 36.2 C L 90 20 97 10/07/24 02:42 36.2 C L 88 20 97 10/07/24 02:30 36.1 C L 83 20 96 10/07/24 02:27 36.1 C L 87 20 96 10/07/24 02:26 91/62 L 10/07/24 02:26 91/62 L 10/07/24 02:06 36.1 C L 82 20 97 10/07/24 01:51 36.1 C L 92 H 20 97 10/07/24 01:42 36.1 C L 86 20 97 10/07/24 01:33 36.1 C L 87 20 97 10/07/24 01:26 96/62 L 10/07/24 01:26 96/62 L 10/07/24 01:12 36.1 C L 82 20 97 10/07/24 00:54 36.1 C L 89 20 96 10/07/24 00:42 36.1 C L 88 20 96 10/07/24 00:40 84 20 96 40 10/07/24 00:30 36.2 C L 85 20 96 10/07/24 00:26 112/76 10/07/24 00:26 112/76 10/07/24 00:26 112/76 08/18/25 00:21 36.2 C L 89 20 96 10/07/24 00:12 36.2 C L 91 H 20 96 10/07/24 00:03 36.2 C L 92 H 20 96 10/06/24 23:58 50 10/06/24 23:56 96/68 L 10/06/24 23:56 96/68 L 10/06/24 23:51 36.2 C L 91 H 20 96 10/06/24 23:42 36.2 C L 85 20 96 10/06/24 23:33 36.2 C L 91 H 20 96 10/06/24 23:26 97/62 L 10/06/24 23:00 36.1 C L 83 20 96 10/06/24 22:56 106/60 10/06/24 22:48 36.2 C L 88 20 96 10/06/24 22:26 102/69 10/06/24 22:26 102/69 10/06/24 22:26 102/69 10/06/24 22:21 36.2 C L 86 20 96 10/06/24 22:12 36.3 C L 91 H 20 96 10/06/24 22:06 36.3 C L 86 20 96 10/06/24 21:54 36.3 C L 87 20 96 10/06/24 21:27 36.2 C L 86 20 96 10/06/24 21:26 106/61 10/06/24 21:18 36.2 C L 80 20 96 10/06/24 21:12 36.2 C L 92 H 20 96 10/06/24 21:06 36.2 C L 86 20 96 10/06/24 20:54 36.2 C L 85 20 96 10/06/24 20:41 83 20 96 40 10/06/24 20:30 36.1 C L 85 20 96 10/06/24 20:26 102/70 10/06/24 20:26 102/70 10/06/24 20:24 36.1 C L 80 20 96 10/06/24 20:21 36.1 C L 86 20 96 10/06/24 20:12 36.1 C L 85 20 96 10/06/24 20:00 Mechanical Vent 10/06/24 20:00 36.1 C L 83 20 96 10/06/24 20:00 50 10/06/24 19:56 106/61 10/06/24 19:56 106/61 10/06/24 19:45 36.0 C L 79 20 96 10/06/24 19:42 36.0 C L 68 20 96 10/06/24 19:26 99/69 L 10/06/24 19:21 36.0 C L 86 20 95
--- NOTE | 2024-10-07 07:37 | Critical Care Progress Note ---
<Statement entered by Lluvia Juárez MD - 10/07/24 12:06> Patient is a 69-year-old male with no known past medical history. The patient does not follow with any healthcare providers for many years. The patient presented to the hospital 10/05/2024 due to altered mental status and muscle weakness and poor motor function. On arrival to [facility] the patient was encephalopathic and hypoxic. Labs were significant for hyponatremia at 113, elevated BNP and elevated D-dimer. The patient was administered 2 L of normal saline as well as 2 A of bicarb. Imaging showed no acute intracranial process, CT of the chest did not show evidence of large PE however it was a poorly timed contrast study, and CT abdomen pelvis did not show acute process. The patient was then transferred to [facility]. On arrival his sodium had increased to 118. He was noted to be grossly volume overloaded. The patient was not following commands. Family (2 sons, Obinna and Shivam and daughter Ila) were included in a discussion and they agreed to intubating the patient to allow for LP. They did note however that he would not want to be on a ventilator. The patient underwent lumbar puncture, this was a bloody tap however and difficult due to body habitus. Serology showed Lyme antibody is positive on 10/05/2024 and intracytoplasmic neutrophil inclusions noted on Anaplasma smear 10/05/2024. The patient was noted to be febrile on admission however this has since resolved. He was placed on antiviral/antimicrobial medications to cover for PUGGER HELPER infection including Rocephin, azithromycin (to cover for Legionella which is pending), doxycycline, acyclovir, ampicillin and vancomycin. Infectious disease consult was placed. Sodium was monitored, has fluctuated around 118 without much improvement. The patient was grossly volume overloaded, an echocardiogram was obtained which showed preserved ejection fraction with an EF of 50 to 55%, moderate concentric LVH and borderline global hypokinesis. Cardiology was consulted. The patient was started on diuretics overnight on 10/06/2024. Repeat lumbar puncture was performed on 10/07/2024 with a clear tap. Studies are pending. Reason Critically Ill: Altered mental status Hypervolemic hyponatremia Acute kidney injury Lyme antibody detected Anaplasmosis smear positive for inclusion bodies LVH/hypokinesis on echo, component of HFpEF Volume overload Neuro: Patient had altered mental status. Required intubation for invasive procedures including lumbar puncture. Hyponatremia with a sodium of 113 on arrival may have contributed. Covered for meningitis/encephalitis with broad-spectrum antimicrobial/antiviral. Requiring sedation with fentanyl and propofol as he becomes agitated very easily on the ventilator. LP 10/06/2024 with inadequate samples obtained. Repeat LP 10/07/2024 with clear colorless CSF, low WBCs, 21% lymphocytes. Normal glucose. Total protein elevated at 59.8 (45 is the upper limit of normal). PCR, Lyme antibodies and cultures are pending. Cardiac: Echocardiogram showing EF of 55% however there is hypokinesis as well as LVH. Patient is grossly volume overloaded on exam. Received 1 dose of Lasix overnight. Still net positive fluid balance. We will initiate Lasix 60 Q6, monitor urine output, may require higher dose or Lasix drip. Respiratory: Intubated for invasive procedures on 10/06/2024. Currently ventilated with volume AC, rate 16, tidal volume 550, PEEP 8 and 35% FiO2. Underwent bronchoscopy 10/05/2024, right middle lobe BAL negative. Daily chest x-ray and ABG while on ventilator. Will continue mechanical ventilation today, use fentanyl propofol as needed. Hopeful SAT/SBT in the morning. Would ideally like the patient to be more euvolemic prior to extubation. May require Precedex. GI: Will initiate tube feeding. Nutrition consulted. Will initiate pantoprazole 40 mg daily. When Ishee a bowel regimen with MiraLAX twice daily. RENAL/LYTES: Hyponatremia, fluctuating between 118 and 119. Creatinine elevated. Appears to be hypervolemic hyponatremic. Initiated Lasix 60 every 6 IV. If he does not respond to this he may require a higher dose. Monitor urine output. May require bladder scan or flushing of the Villalta catheter to ensure this is functioning properly. Will get renal ultrasound. Replacing potassium. Continue to monitor chemistry every 4 hours. No need for hypertonic saline at this time. : Villalta catheter in place. ENDO : Glucose acceptable. Monitoring with frequent chemistries. HEME: CBC acceptable at this time. Had mild lymphopenia that has improved. Monitor with daily labs. ID: Lyme antibody detected 10/05/2024. Inclusion bodies detected on anaplasmosis smear 10/05/2024. LP 10/07/2024 with clear yellow fluid. Low WBCs. 21% lymphocytes. Normal glucose. Protein is slightly elevated at 59. PCR, West Nile and Lyme antibodies are pending. MRSA nares is negative. Legionella is pending. Urine culture negative. Sputum culture, BAL from RML with no growth to date. Blood culture from admission with no growth to date. Current medications include doxycycline, Rocephin, azithromycin, ampicillin, acyclovir and vancomycin. We will stop vancomycin, ampicillin and Rocephin. We will continue azithromycin until Legionella antigen returns. Will continue acyclovir until CSF PCR comes back. Will continue doxycycline for the Lyme and anaplasmosis. Infectious diseases consulted. Prophylaxis VTE: Will place SCDs, will start heparin subcu. GI: Pantoprazole 40 mg daily. Lines: IJ CVC Diet: Tube feeds initiated, nutrition consulted. Plan: Patient remain in the ICU today. Continue mechanical ventilation. We will try to diurese. Nephrology is consulted. Will get renal ultrasound. Continue to monitor sodium and renal function closely with frequent labs. Infectious disease consulted. CSF was clear with out significant WBCs and normal glucose. We will stop Rocephin, ampicillin and vancomycin. Will start DVT prophylaxis now that LP has been complete. Case was discussed at bedside with nursing staff as well as during multidisciplinary rounds. No family has been at bedside today. Dr. Frost was the resident-physician during care of patient. I separately evaluated patient for cantrell portions of the history and the exam. I was present during the critical portion of medical decision making, and I discussed the case with the resident. I generally agree with the findings and plan except for any additions/exceptions noted. I have personally spent 60 minutes of critical care time in the direct management of this patient. This is a life/limb threatening event. This includes time spent evaluating patient, direct bedside care, chart review, placing orders, interpretation of diagnostic studies, discussion with consultants, patient, and family members, as well as other required patient management activities. This time is exclusive of all separately billable procedures, and teaching time and separate from and in addition to any other critical care service time. Date of Service October 07, 2024 Assessment & Plan (1) Thyroid nodule: (2) Anaplasmosis: (3) Lyme disease: (4) Hyponatremia with decreased serum osmolality: (5) Encephalopathy: Plan Reason Critically Ill: 68 YOM presents encephalopathic, febrile, hyponatremic. Concern for central nervous system infection as well as severe hyponatremia. Neuro - Encephalopathy CAM ICU: UMM - Patient with multitude of vector/risks for PUGGER HELPER type of infection - LP performed 10/06- sample was bloody and clotted, only able to be tested was lyme and cryptococcal - Plan for LP with CT guidance today - MRI showed mild chronic ischemic small vessel disease at frontoparietal white matter, no evidence of acute intracranial pathology - blood cultures are without growth at 24 hours, will continue to monitor - Anaplasmosis/lyme returned positive - RPR is negative - HIV pending - ID consultation appreciated, awaiting recommendation - Patient continues empirically treated with - Amp, acyclovir, Azithro, Rocephin, Doxycycline, and Vancomycin - Fentanyl and Propofol for sedation - when weaning change to Precedex wean/extubation Cardiac - edema, elevated BNP, - Patient with pitting edema from mid thigh to lower extremities bilaterally- difficult to ascertain into abdomen or sacral area secondary to body habitus - Plan to diurese with intermittent IV Lasix - ECHO 10/06 shows LEF of 50-55%, borderline global hypokinesis of LV, dilated IVC with reduced collapsibility- indicating elevated R atrial pressure - Holding anticoagulation until after LP, then start heparin sq Respiratory - Intubated requiring mechanical ventilation, concern for pneumonia - Intubated for diagnostic work up and encephalopathy - pleural effusions at this time likely secondary to fluid volume status- likely new onset HG - haziness/opacifications bilaterally on CXR- concern for infective process - Bronch culture shows many WBC's, no organisms on gram stain - legionella urine pending - strep pneumo pending - Continue Azithro, Doxy, Rocephin for pulmonary sources GI - - Start feeds - Start pantoprazole 40mg IV qd for GI prophylaxis - OGT to LIWS RENAL/LYTES - Severe hyponatremia, other electrolyte disturbances - Cr ia 1.90, eGFR is 37.48 - Na is 119, up from 118 up from [place] this morning - Found to have Hypoosmolar hyponatremia with Urinary NA < 20 - Presumed to be secondary to HF vs exacerbated by or accompanied by other infective cause - Hypertonic NA in the form of 8.4% NAHCO3 administered at OMF showed 5mmol correction in few hours - Given DDAVP 2mcg IV q8 and D5W at 100 ml/hr to slow rate of correction- in addition to receiving multiple abx mixed in saline and D5 D/c DDVAP - Today, plan to diurese with IV lasix 60mg q6h - Monitor I/Os, potassium - Enlarged prostate seen on CT ab/pel - renal function normal - await UA/culture- continue with villalta ENDO - abnormal TSH, thyroid nodule - Cortisol is 38.15, adequate response - TSH is 0.276 - can likely proceed with outpatient workup when stable vs ultrasound of thyroid in house if he stabilizes HEME - See ID ID - - Continue airborne isolation - Concern for PUGGER HELPER infection as above - His lyme and anaplasmosis was immediately positive with path confirm on anaplasmosis- Continue Doxycycline - Continue Azithromycin for concern for atypical pneumonia - Continue Rocephin and Vanco for PUGGER HELPER and CAP and possible skin - Continue Amp for listeria prevention - Continue Acyclovir for concern of PUGGER HELPER infx - ID consulted, recommendations appreciated LINES/IV ACCESS - CVL, PIV, ETT, Villalta, OGT Continue use of these lines DVT PROPHYLAXIS - SCDS, hold on chemoprophylaxis until LP obtained DISPO: ICU while intubated and sedated and until NA correction stable and at least 120-125 Admission and Anticipated Discharge Date Admission Date: October 06, 2024 Subjective No acute events overnight. Pt awakes to touch and becomes active moving arms and legs. He remains intubated and does not alert to answer yes/no questions with head nods or shakes. Review of Systems Review of Systems: Unable to obtain due to intubation and sedation. Physical Exam Physical Exam: Gen: Awakes to touch and moves arms and legs HENT: Normocephalic, atraumatic. External ear without deformities. Trachea midline, no thyromegaly Cardio: A-fib, no murmurs or clicks. No JVD. 2+ distal pulses Resp: Intubated, CTAB, Equal bilateral chest rise GI: Obese, but nondistended, soft abdomen, normoactive bowel sounds in all 4 quadrants : Villalta in place, geo urine MSK: Moving all 4 extremities independently Skin: Dry, scaling skin at bilateral lower legs and feet, Excoriated skin at bilateral upper arms and anterior chest Neuro: Sedated, but awakes to touch, independent movement of extremities aganst gravity, unable to follow commands and maintain alertness due to sedation. Results & Data Results & Data Vital Signs (Past 12 Hours) Vital Signs Temp Pulse Resp BP Pulse Ox O2 Del Method FiO2 10/07/24 06:42 36.1 C L 87 16 97 10/07/24 06:36 36.1 C L 90 16 96 10/07/24 06:26 88/67 L 10/07/24 06:24 36.1 C L 86 16 97 10/07/24 06:21 36.1 C L 92 H 16 97 10/07/24 06:18 36.1 C L 93 H 16 97 10/07/24 06:00 36.1 C L 77 16 97 10/07/24 05:56 91/65 L 10/07/24 05:56 91/65 L 10/07/24 05:56 91/65 L 10/07/24 05:54 36.1 C L 90 16 97 10/07/24 05:45 36.1 C L 88 16 96 10/07/24 05:36 36.1 C L 91 H 16 96 10/07/24 05:26 104/61 10/07/24 05:24 36.1 C L 83 16 96 10/07/24 05:21 36.1 C L 95 H 16 96 10/07/24 05:18 36.1 C L 82 16 96 10/07/24 05:00 36.1 C L 81 16 96 10/07/24 04:56 93/58 L 10/07/24 04:56 93/58 L 10/07/24 04:54 36.0 C L 88 16 96 10/07/24 04:51 36.0 C L 93 H 16 96 10/07/24 04:48 36.0 C L 84 16 96 10/07/24 04:41 16 35 10/07/24 04:30 36.1 C L 91 H 20 96 10/07/24 04:27 99/58 L 10/07/24 04:12 36.1 C L 102 H 20 96 10/07/24 04:03 36.2 C L 92 H 20 95 10/07/24 04:00 35 10/07/24 03:57 36.2 C L 96 H 20 95 10/07/24 03:57 130/78 10/07/24 03:52 81 20 95 35 10/07/24 03:51 36.2 C L 89 20 95 10/07/24 03:42 36.2 C L 91 H 20 96 10/07/24 03:03 36.2 C L 87 20 97 10/07/24 02:51 36.2 C L 90 20 97 10/07/24 02:42 36.2 C L 88 20 97 10/07/24 02:30 36.1 C L 83 20 96 10/07/24 02:27 36.1 C L 87 20 96 10/07/24 02:26 91/62 L 10/07/24 02:26 91/62 L 10/07/24 02:06 36.1 C L 82 20 97 10/07/24 01:51 36.1 C L 92 H 20 97 10/07/24 01:42 36.1 C L 86 20 97 10/07/24 01:33 36.1 C L 87 20 97 10/07/24 01:26 96/62 L 10/07/24 01:26 96/62 L 10/07/24 01:12 36.1 C L 82 20 97 10/07/24 00:54 36.1 C L 89 20 96 10/07/24 00:42 36.1 C L 88 20 96 10/07/24 00:40 84 20 96 40 10/07/24 00:30 36.2 C L 85 20 96 10/07/24 00:26 112/76 10/07/24 00:26 112/76 10/07/24 00:26 112/76 10/07/24 00:21 36.2 C L 89 20 96 10/07/24 00:12 36.2 C L 91 H 20 96 10/07/24 00:03 36.2 C L 92 H 20 96 10/06/24 23:58 50 10/06/24 23:56 96/68 L 10/06/24 23:56 96/68 L 10/06/24 23:51 36.2 C L 91 H 20 96 10/06/24 23:42 36.2 C L 85 20 96 10/06/24 23:33 36.2 C L 91 H 20 96 10/06/24 23:26 97/62 L 10/06/24 23:00 36.1 C L 83 20 96 10/06/24 22:56 106/60 10/06/24 22:48 36.2 C L 88 20 96 10/06/24 22:26 102/69 10/06/24 22:26 102/69 10/06/24 22:26 102/69 10/06/24 22:21 36.2 C L 86 20 96 10/06/24 22:12 36.3 C L 91 H 20 96 10/06/24 22:06 36.3 C L 86 20 96 10/06/24 21:54 36.3 C L 87 20 96 10/06/24 21:27 36.2 C L 86 20 96 10/06/24 21:26 106/61 10/06/24 21:18 36.2 C L 80 20 96 10/06/24 21:12 36.2 C L 92 H 20 96 10/06/24 21:06 36.2 C L 86 20 96 10/06/24 20:54 36.2 C L 85 20 96 10/06/24 20:41 83 20 96 40 10/06/24 20:30 36.1 C L 85 20 96 10/06/24 20:26 102/70 10/06/24 20:26 102/70 10/06/24 20:24 36.1 C L 80 20 96 10/06/24 20:21 36.1 C L 86 20 96 10/06/24 20:12 36.1 C L 85 20 96 10/06/24 20:00 Mechanical Vent 10/06/24 20:00 36.1 C L 83 20 96 10/06/24 20:00 50 10/06/24 19:56 106/61 10/06/24 19:56 106/61 10/06/24 19:45 36.0 C L 79 20 96 10/06/24 19:42 36.0 C L 68 20 96 Resident Activity Tracking Resident Involvement: Resident Care Provided Care Provided: Adult Hospital Medicine
[2024-10-07] MEDS: AZITHROMYCIN 500 MG/255 ML D5W BAG IV SCH (07:44)
[2024-10-07 08:34] LABS: Anion Gap 5.0 (3-11); Blood Urea Nitrogen 29.0 mg/dl (6-23); Calcium 7.5 mg/dl (8.6-10.3); Carbon Dioxide 30.0 mmol/L (21-32); Chloride 84.0 mmol/L (98-107); Creatinine Clr Calc Pharmacy 54.5 ml/min; Glucose 104.0 mg/dl (70-99(Fasting)); Potassium 5.0 mmol/L (3.5-5.1); Sodium 119.0 mmol/L (136-145)
[2024-10-07] MEDS: FUROSEMIDE 40 MG/4 ML VIAL IV SCH ×2 (08:35→19:47)
[2024-10-07 09:59] LABS: Anaplasmosis Smear(Rpt to DOH) Pos for Anaplasma
[2024-10-07] MEDS ORDERED: ACETAMINOPHEN 325 MG TAB PO PRN ×2 (10:02→11:19)
--- NOTE | 2024-10-07 10:18 | Cardiology Progress Note ---
Date of Service October 07, 2024 Assessment & Plan (1) Atrial fibrillation: (2) Encephalopathy: (3) Hyponatremia with decreased serum osmolality: Plan 69-year-old male recluse admitted after presenting with symptoms of worsening confusion and encephalopathy. Marked metabolic derangement notable including hyponatremia hypocalcemia. Patient in atrial fibrillation with variable ventricular response rate on presentation rapid currently well-controlled on no AV eugenio blocking m edications. Intubated and sedated. Pressors weaned. History notable for longstanding lower extremity edema over at least 7 years duration. Sleeps in recliner possible hypoventilation component EKG atrial fibrillation with low voltage no acute ST segment changes or Q waves Echocardiogram low normal LV function EF 50-55%, dilated inferior vena cava, consistent with elevated central venous pressure . -Atrial fibrillation of uncertain duration with variable ventricular sponsor rate -Overall LV systolic function low normal with mild left atrial enlargement -Continue to observe off of AV eugenio blockers -Systemic anticoagulation to be reconsidered after repeat CT guided lumbar puncture is performed. Cardiology will continue to follow Jessica Roland DO Admission and Anticipated Discharge Date Admission Date: October 06, 2024 Subjective Patient seen in the ICU room 105 in cardiology follow up. Remains sedated with fentanyl and is on the ventilator. Telemetry reveals rate controlled AF in the 90s. He is off pressors at present. Review of Systems Review of Systems: Unobtainable due to cognitive status Physical Exam Physical Exam: Temp Pulse Resp BP Pulse Ox O2 Del Method O2 Flow Rate 36.0 C L 88 16 94/69 L 96 Mechanical Vent 2 10/07/24 09:15 10/07/24 09:15 10/07/24 09:15 10/07/24 09:15 10/07/24 09:15 10/07/24 08:00 10/05/24 23:00 FiO2 35 10/07/24 08:00 Constitutional: + morbidly obese Neck: + thick neck Respiratory: no audible wheezes Cardiovascular: Rate/Rhythm: + irregularly irregular Heart Sounds: normal S1 and normal S2 Extremities: + edema (3+ lower extremity edema with chronic stasis changes) Gastrointestinal (Abdomen): Inspection/Auscultation: + abdomen distended Results & Data Laboratory Results Cardiac Enzymes 10/06/24 10/06/24 Range/Units 14:55 19:38 Troponin I High Sens 15.3 D 14.6 (0-20) pg/ml CBC 10/07/24 Range/Units 03:35 WBC 7.19 (4.8-10.8) K/ul RBC 3.59 L (4.70-6.10) M/uL Hgb 10.2 L (14.0-18.0) g/dl Hct 28.7 L (42.0-52.0) % Plt Count 149 (130-400) K/uL Comprehensive Metabolic Panel 10/06/24 10/06/24 10/06/24 Range/Units 11:24 14:55 19:38 Sodium 118 L* 117 L* 118 L* (136-145) mmol/L Potassium 3.7 3.5 3.5 (3.5-5.1) mmol/L Chloride 83 L 82 L 83 L (98-107) mmol/L Carbon Dioxide 28 28 28 (21-32) mmol/L BUN 18 22 24 H (6-23) mg/dl Creatinine 1.25 1.42 H 1.52 H (0.6-1.4) mg/dl Glucose 128 H 138 H 106 H (70-99(Fasting)) mg/dl Calcium 7.4 L 7.2 L 7.3 L (8.6-10.3) mg/dl 10/06/24 10/07/24 10/07/24 Range/Units 23:34 03:35 07:48 Sodium 117 L* 119 L* 119 L* (136-145) mmol/L Potassium 3.5 3.4 L 5.0 D (3.5-5.1) mmol/L Chloride 83 L 83 L 84 L (98-107) mmol/L Carbon Dioxide 27 28 30 (21-32) mmol/L BUN 25 H 28 H 29 H (6-23) mg/dl Creatinine 1.65 H 1.78 H 1.90 H (0.6-1.4) mg/dl Glucose 107 H 116 H 104 H (70-99(Fasting)) mg/dl Calcium 7.3 L 7.3 L 7.5 L (8.6-10.3) mg/dl Intake and Output 10/06/24 10/07/24 10/07/24 22:59 06:59 14:59 Intake Total 1522.856 / 4201.552 914.823 / 4201.552 379.737 / 379.737 Output Total 195 / 610 190 / 610 150 / 150 Balance 1327.856 / 3591.552 724.823 / 3591.552 229.737 / 229.737 Intake: IV 1522.856 / 4201.552 914.823 / 4201.552 379.737 / 379.737 Acyclovir Sod 1,000 mg In 270 / 810 270 / 810 Dextrose 5% 250 ml @ 250 mls/hr IV Q8H [facility] Rx#:[id number] Ampicillin 2,000 mg In Sodium 200 / 500 200 / 500 Chlor 0.9% Mini-B 100 ml @ 200 mls/hr IV Q4H [facility] Rx#:[id number] Azithromycin 500 mg In 255 ml @ 255 / 255 127.5 mls/hr IV Q24H [facility] Rx#: [id number] Dextrose 5% 1,000 ml @ 85 mls/ 289 / 1289 hr IV .[id number] [facility] Rx#:[id number] Doxycycline Hyclate 100 mg In 100 / 200 100 / 200 Dextrose 5% Mini-B 100 ml @ 50 mls/hr IV Q12H [facility] Rx#:[id number] Norepinephrine/D5w 4 mg In 250 0 / 0 ml @ 0 MCG/KG/MIN IV .Q0M [facility] Rx#:[id number] Potassium Chloride / Wtr 20 meq 57.5 / 57.5 100 / 100 In 100 ml @ 50 mls/hr IV Q2H [facility] Rx#:[id number] Vancomycin HCl 1,500 mg In 530 / 530 Sodium Chloride 0.9% 500 ml @ 200 mls/hr IV Q12H [facility] Rx#: [id number] cefTRIAXone SODIUM 2,000 mg In 50 / 100 50 ml @ 100 mls/hr IV Q12H [facility] Rx#:[id number] fentaNYL citrate 2,500 mcg In 37.75 / 123.833 74.083 / 123.833 7.75 / 7.75 250 ml @ 75 MCG/HR 7.5 mls/hr IV .[id number] [facility] Rx#:[id number] propofoL 1,000 mg In 100 ml @ 96.106 / 340.719 163.240 / 340.719 16.987 / 16.987 20 MCG/KG/MIN 18.168 mls/hr IV .[id number] [facility] Rx#:[id number] Output: Urine Amount (Catheter) 195 / 610 190 / 610 150 / 150 Carey/Indwelling 195 / 610 190 / 610 150 / 150 Other: Weight 150 kg Weight Measurement Method [facility] Coding [place] [address] SUB INP/OBS CARE 3/50MIN Patient Type Established History Comprehensive Exam Comprehensive Medical Decision Making High Complexity Diagnoses Atrial fibrillation I48.91 Encephalopathy G93.40 Hyponatremia with decreased serum osmolality E87.1
[2024-10-07] MEDS: POLYETHYLENE (MIRALAX) 17 GM PACK GT SCH (10:54)
[2024-10-07] MEDS: ROCURONIUM BROMIDE 10 MG/ML 5 ML VIAL IV STA (10:54)
[2024-10-07] MEDS: PANTOprazole 40 MG in SYRINGE DAILY IV SCH (10:54)
[2024-10-07 11:08] LABS: CSF Count Tube # 3; CSF Xanthrochromic No xanthochromia; Red Blood Cell CSF Manual 7 (0); White Blood Cell CSF Manual 2 (0-5)
[2024-10-07] MEDS: PEPTAMEN INTENSE VHP 1.0 CAL 1,000 ML BAG OG SCH (11:24)
[2024-10-07] MEDS: AMPICILLIN 2,000 MG in SODIUM CHLOR 0.9% MINI-B 100 ML IV SCH (11:25)
[2024-10-07] MEDS: TUBE FEEDING WATER FLUSH OG SCH (11:25)
--- NOTE | 2024-10-07 12:07 | Billing Data ---
Date of Service October 07, 2024 Coding Level of Care Code 47223 CRITICAL CARE
[2024-10-07 12:09] LABS: Anion Gap 8.0 (3-11); Blood Urea Nitrogen 32.0 mg/dl (6-23); Calcium 7.6 mg/dl (8.6-10.3); Carbon Dioxide 28.0 mmol/L (21-32); Chloride 82.0 mmol/L (98-107); Creatinine Clr Calc Pharmacy 52.3 ml/min; Glucose 115.0 mg/dl (70-99(Fasting)); Potassium 3.8 mmol/L (3.5-5.1); Sodium 118.0 mmol/L (136-145)
[2024-10-07 12:18] LABS: Cryptococcus neoformans/ga PCR Not Detected (NotDetected); Escherichia coli K1 PCR Not Detected (NotDetected); Haemophilius influenzae PCR Not Detected (NotDetected); Herpes Simplex Virus 1 PCR Not Detected (NotDetected); Herpes Simplex Virus 2 PCR Not Detected (NotDetected); Human Herpes Virus 6 PCR Not Detected (NotDetected); Human Parechovirus PCR Not Detected (NotDetected); Listeria monocytogenes PCR Not Detected (NotDetected); Neisseria meningitidis PCR Not Detected (NotDetected); Streptococcus agalactiae PCR Not Detected (NotDetected); Streptococcus pneumoniae PCR Not Detected (NotDetected)
--- NOTE | 2024-10-07 12:37 | Fluoroscopy Report ---
LUMBAR PUNCTURE UNDER FLUOROSCOPY CLINICAL HISTORY: Meningitis PROCEDURE: Procedure and risks were explained. Informed consent was obtained from the family. A final timeout was completed. The patient was placed prone on the fluoroscopic exam table. The lower lumbar region was prepped and draped in sterile fashion. 1% lidocaine was utilized for skin anesthesia. Utilizing fluoroscopic guidance, a 20-gauge spinal needle was advanced into the intrathecal space at the L3-4 disc space level. Fluoroscopic spot images were obtained. 10 mL of clear CSF fluid was remov ed and sent to lab for analysis. The needle was removed and Band-Aid applied. The patient tolerated t he procedure well. Vital signs will be monitored postprocedure. Fluoroscopy time 5 seconds. Study dosed is 16.97 mGy. IMPRESSION: Lumbar puncture as above. Performed, dictated, and signed by Tad Lyon PA-C; to be co-signed by Dr. Colt Haro. Electronically signed by: Colt Haro M.D. 10/07/2024 1:25 PM
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
--- NOTE | 2024-10-07 13:02 | Infectious Disease Consult ---
Date of Service October 07, 2024 Telehealth Information I performed this visit using a real-time telehealth connection between my location and the patients location ([facility]). After connecting through interactive tele-video, patient was identified by name and date of and/or wristband check.Patient (or authorized healthcare pharmacy sales representative) was informed that this was a telemedicine visit and it was being conducted confidentially over secure lines. My office door was closed and no o ne else was present in the room with me.Patient (or authorized healthcare pharmacy sales representative) provided consent to proceed with the visit, expressed an understanding of privacy and security of the telemedicine visit, and gave permission to have a hospital pharmacy sales representative in the room in order to assist with the visit and to conduct portions of the visit, as needed. I informed the patient (or authorized healthcare pharmacy sales representative) that I reviewed their record and presented the opportunity for them to ask any questions regarding the visit today. The patient agreed to participate. Assessment & Plan (1) JAREN (acute kidney injury): (2) Hyponatremia: (3) Encephalopathy: (4) Hypertriglyceridemia: Plan Assessment: 68-year-old male with PMHx as shown below presented to [facility] on 10/06/2024 by his sister because of confusion and found to have hyponatremia and was transferred here for ICU admission. At [facility], pt has LP with WBC of 2, no consistent with encephalitis or meningitis. 1. Encephalitis/Meningitis - AMS likely more metabolic in nature rather than infectious given hyponatremia and worsening kidney function. CSF non-infectious. - Okay to continue doxycycline until tick panel returns negative. Recommend stopping all other antimicrobials at this time. - we will sign off, we will not routinely f/u on patient, please call with issues or concerns to physician customer contact sales associate for [employer]. Thank you. History of Present Illness History of Present Illness Reason for consult: tick borne, concern for encephalitis/meningitis 68-year-old male with PMHx as shown below presented to [facility] on 10/06/2024 by his sister because of confusion and found to have hyponatremia and was transferred here for ICU admission. At [facility], pt has LP with WBC of 2, no consistent with encephalitis or meningitis. ID consulted initial encephalitis/meningitis concern. Allergies Allergy/AdvReac Type Severity Reaction Status Date / Time No Known Allergies Allergy Unverified 10/05/24 23:21 Home Medications Medication Instructions Recorded Confirmed Type No Known Home Medications 10/05/24 10/05/24 History Patient History Social History Smoking Status: Current every day smoker Tobacco Type: Pipe Hx Alcohol Use: Yes Alcohol type: beer Hx Substance Use: No Preferred Language: Greenlandic Communication Ability: Impaired Veterinary Surgery Technologist Required: No Beliefs That Will Affect Care: None Current Living Situation: Alone Other Information That Helps Us Care for You: No Feels Safe at Home: Yes Safety Concerns: Feels Safe At This Time Assistive Devices: Glasses Results & Data Vital Signs (Past 12 Hours) Vital Signs Temp Pulse Resp BP Pulse Ox O2 Del Method FiO2 10/07/24 12:00 36.0 C L 100 H 16 94 10/07/24 12:00 35 10/07/24 11:39 35.9 C L 128 H 26 H 91 10/07/24 11:39 141/118 H 10/07/24 11:00 36.0 C L 119 H 18 94 10/07/24 10:54 36.0 C L 96 H 16 94 10/07/24 10:50 102 H 16 94 35 10/07/24 10:39 118/80 10/07/24 09:45 36.0 C L 87 14 95 10/07/24 09:15 36.0 C L 88 16 94/69 L 96 10/07/24 08:09 36.0 C L 92 H 16 96 10/07/24 08:00 Mechanical Vent 10/07/24 08:00 35 10/07/24 07:56 103/69 10/07/24 07:54 36.0 C L 106 H 14 95 10/07/24 07:30 96 H 16 97 35 10/07/24 07:00 36.1 C L 80 16 97 10/07/24 06:42 36.1 C L 87 16 97 10/07/24 06:36 36.1 C L 90 16 96 10/07/24 06:26 88/67 L 10/07/24 06:24 36.1 C L 86 16 97 10/07/24 06:21 36.1 C L 92 H 16 97 10/07/24 06:18 36.1 C L 93 H 16 97 10/07/24 06:00 36.1 C L 77 16 97 10/07/24 05:56 91/65 L 10/07/24 05:56 91/65 L 10/07/24 05:56 91/65 L 10/07/24 05:54 36.1 C L 90 16 97 10/07/24 05:45 36.1 C L 88 16 96 10/07/24 05:36 36.1 C L 91 H 16 96 10/07/24 05:26 104/61 10/07/24 05:24 36.1 C L 83 16 96 10/07/24 05:21 36.1 C L 95 H 16 96 10/07/24 05:18 36.1 C L 82 16 96 10/07/24 05:00 36.1 C L 81 16 96 10/07/24 04:56 93/58 L 10/07/24 04:56 93/58 L 10/07/24 04:54 36.0 C L 88 16 96 10/07/24 04:51 36.0 C L 93 H 16 96 10/07/24 04:48 36.0 C L 84 16 96 10/07/24 04:41 16 35 10/07/24 04:30 36.1 C L 91 H 20 96 10/07/24 04:27 99/58 L 10/07/24 04:12 36.1 C L 102 H 20 96 10/07/24 04:03 36.2 C L 92 H 20 95 10/07/24 04:00 35 10/07/24 03:57 36.2 C L 96 H 20 95 10/07/24 03:57 130/78 10/07/24 03:52 81 20 95 35 10/07/24 03:51 36.2 C L 89 20 95 10/07/24 03:42 36.2 C L 91 H 20 96 10/07/24 03:03 36.2 C L 87 20 97 10/07/24 02:51 36.2 C L 90 20 97 10/07/24 02:42 36.2 C L 88 20 97 10/07/24 02:30 36.1 C L 83 20 96 10/07/24 02:27 36.1 C L 87 20 96 10/07/24 02:26 91/62 L 10/07/24 02:26 91/62 L 10/07/24 02:06 36.1 C L 82 20 97 10/07/24 01:51 36.1 C L 92 H 20 97 10/07/24 01:42 36.1 C L 86 20 97 10/07/24 01:33 36.1 C L 87 20 97 10/07/24 01:26 96/62 L 10/07/24 01:26 96/62 L 10/07/24 01:12 36.1 C L 82 20 97 Laboratory Results 10/07/24 Unknown Gram Stain - Final Cerebral Spinal Fluid CSF Culture - Pending 10/06/24 Unknown Urine Culture - Preliminary Urine,Straight Cath No growth - Less than 1,000 colonies/mL, Final report to follow. 10/06/24 01:10 Gram Stain - Final Ba Lavage,Right Middle Lobe Bronchial Culture - Preliminary No growth 10/06/24 02:00 Gram Stain - Final Cerebral Spinal Fluid CSF Culture - Preliminary No growth to date. 10/05/24 23:16 Aerobic Blood Culture - Preliminary Blood No growth in Aerobic bottle after 24 hours. Anaerobic Blood Culture - Preliminary No growth in Anaerobic bottle after 24 hours. 10/05/24 23:16 Aerobic Blood Culture - Preliminary Blood No growth in Aerobic bottle after 24 hours. Anaerobic Blood Culture - Preliminary No growth in Anaerobic bottle after 24 hours. 10/07/24 10/07/24 10/07/24 Unknown 11:47 11:30 WBC RBC Hgb POC Hgb Hct POC Hct MCV MCH MCHC RDW Std Deviation RDW Coeff of Kishor Plt Count MPV Reticulocyte % (Auto) Reticulocyte # Neutrophils % (Manual) Lymphocytes % (Manual) Reactive Lymphs % (Man) Monocytes % (Manual) Neutrophils # (Manual) Total Absolute Neuts Lymphocytes # (Manual) Reactive Lymphs # Total Abs Lymphocytes Monocytes # (Manual) Toxic Vacuolation Polychromasia Echinocytes Peripher Smr Path Cons Specimen Type Sample Site POC pH POC pCO2 POC pO2 POC HCO3 POC Total CO2 POC Base Excess O2 Sat Pulse Oximetry ABG pH (Temp Correct) ABG pCO2 (Temp Corrct POC ABG pO2 at Pt Temp POC ABG O2 Sat Manny Test O2 Delivery Device Vent Mode POC FiO2 End Tidal CO2 POC Sodium Sodium 118 L* POC Potassium Potassium 3.8 D Chloride 82 L Carbon Dioxide 28 Anion Gap 8 BUN 32 H Creatinine 1.98 H Est Cr Clr Drug Dosing 52.3 eGFR 35.67 BUN/Creatinine Ratio 16.2 Glucose 115 H POC Glucose 119 H Calcium 7.6 L Ionized Calcium Phosphorus Magnesium Iron Transferrin Ferritin Troponin I High Sens Vitamin B12 Folate Urine Color Urine Appearance Urine pH Ur Specific [place] Urine Protein Urine Glucose (UA) Urine Ketones Urine Blood Urine Nitrite Urine Bilirubin Urine Urobilinogen Ur Leukocyte Esterase Urine WBC (Auto) Urine RBC (Auto) U Hyaline Cast (Auto) U Epithel Cells (Auto) Urine Bacteria (Auto) Granular Casts Urine Comment Fluid Comment CSF Appearance Clear CSF Color Colorless Xanthrochromic No xanthochromia CSF WBC 2 CSF RBC 7 CSF Cell Count Tube # 3 CSF Chemistry Tube # 1 CSF Glucose 59 CSF Total Protein 59.8 H CSF C.neoform/gat PCR Not Detected CSF CMV DNA (PCR) Not Detected CSF Enterovirus (PCR) Not Detected CSF E. coli K1 (PCR) Not Detected CSF H. influenzae (PCR) Not Detected CSF HSV I (PCR) Not Detected CSF HSV II (PCR) Not Detected CSF HHV 6 (PCR) Not Detected CSF L.monocytogenes PCR Not Detected CSF N. meningitidis PCR Not Detected CSF Parechovirus (PCR) Not Detected CSF S. agalactiae (PCR) Not Detected CSF S. pneumoniae (PCR) Not Detected CSF VZV DNA (PCR) Not Detected Random Vancomycin Anaplasma Comment 10/07/24 10/07/24 10/07/24 07:48 07:47 04:26 WBC RBC Hgb POC Hgb 10.5 L Hct POC Hct 31 L MCV MCH MCHC RDW Std Deviation RDW Coeff of Kishor Plt Count MPV Reticulocyte % (Auto) Reticulocyte # Neutrophils % (Manual) Lymphocytes % (Manual) Reactive Lymphs % (Man) Monocytes % (Manual) Neutrophils # (Manual) Total Absolute Neuts Lymphocytes # (Manual) Reactive Lymphs # Total Abs Lymphocytes Monocytes # (Manual) Toxic Vacuolation Polychromasia Echinocytes Peripher Smr Path Cons Specimen Type Arterial Sample Site R Radial POC pH 7.49 H POC pCO2 34 L POC pO2 79 L POC HCO3 25 H POC Total CO2 26 POC Base Excess 2.0 H O2 Sat Pulse Oximetry 95 ABG pH (Temp Correct) 7.501 H* ABG pCO2 (Temp Corrct 32 L POC ABG pO2 at Pt Temp 74 POC ABG O2 Sat 97.0 H Manny Test Pass O2 Delivery Device Ventilator Vent Mode AC POC FiO2 35 End Tidal CO2 29 POC Sodium 118 L* Sodium 119 L* POC Potassium 3.4 Potassium 5.0 D Chloride 84 L Carbon Dioxide 30 Anion Gap 5 BUN 29 H Creatinine 1.90 H Est Cr Clr Drug Dosing 54.5 eGFR 37.48 BUN/Creatinine Ratio 15.3 Glucose 104 H POC Glucose 124 H Calcium 7.5 L Ionized Calcium Phosphorus Magnesium Iron Transferrin Ferritin Troponin I High Sens Vitamin B12 Folate Urine Color Urine Appearance Urine pH Ur Specific [place] Urine Protein Urine Glucose (UA) Urine Ketones Urine Blood Urine Nitrite Urine Bilirubin Urine Urobilinogen Ur Leukocyte Esterase Urine WBC (Auto) Urine RBC (Auto) U Hyaline Cast (Auto) U Epithel Cells (Auto) Urine Bacteria (Auto) Granular Casts Urine Comment Fluid Comment CSF Appearance CSF Color Xanthrochromic CSF WBC CSF RBC CSF Cell Count Tube # CSF Chemistry Tube # CSF Glucose CSF Total Protein CSF C.neoform/gat PCR CSF CMV DNA (PCR) CSF Enterovirus (PCR) CSF E. coli K1 (PCR) CSF H. influenzae (PCR) CSF HSV I (PCR) CSF HSV II (PCR) CSF HHV 6 (PCR) CSF L.monocytogenes PCR CSF N. meningitidis PCR CSF Parechovirus (PCR) CSF S. agalactiae (PCR) CSF S. pneumoniae (PCR) CSF VZV DNA (PCR) Random Vancomycin Anaplasma Comment 10/07/24 10/06/24 10/06/24 03:35 Unknown 23:34 WBC 7.19 RBC 3.59 L Hgb 10.2 L POC Hgb Hct 28.7 L POC Hct MCV 79.9 L MCH 28.4 MCHC 35.5 RDW Std Deviation 41.8 RDW Coeff of Kishor 14.1 Plt Count 149 MPV 9.9 Reticulocyte % (Auto) 0.90 Reticulocyte # 0.030 Neutrophils % (Manual) 54 Lymphocytes % (Manual) 23 Reactive Lymphs % (Man) 20 Monocytes % (Manual) 3 Neutrophils # (Manual) 3.88 Total Absolute Neuts 3.88 Lymphocytes # (Manual) 1.65 Reactive Lymphs # 1.44 Total Abs Lymphocytes 3.09 Monocytes # (Manual) 0.22 Toxic Vacuolation 1+ Polychromasia 1+ Echinocytes 1+ Peripher Smr Path Cons Specimen Type Sample Site POC pH POC pCO2 POC pO2 POC HCO3 POC Total CO2 POC Base Excess O2 Sat Pulse Oximetry ABG pH (Temp Correct) ABG pCO2 (Temp Corrct POC ABG pO2 at Pt Temp POC ABG O2 Sat Manny Test O2 Delivery Device Vent Mode POC FiO2 End Tidal CO2 POC Sodium Sodium 119 L* 117 L* POC Potassium Potassium 3.4 L 3.5 Chloride 83 L 83 L Carbon Dioxide 28 27 Anion Gap 8 7 BUN 28 H 25 H Creatinine 1.78 H 1.65 H Est Cr Clr Drug Dosing 58.5 64.0 eGFR 40.53 44.67 BUN/Creatinine Ratio 15.7 15.2 Glucose 116 H 107 H POC Glucose Calcium 7.3 L 7.3 L Ionized Calcium Phosphorus Magnesium Iron 55 Transferrin 145 L Ferritin 1296.0 H Troponin I High Sens Vitamin B12 1346 H Folate 8.26 Urine Color Dark Yellow Urine Appearance Turbid A Urine pH 5.5 Ur Specific [place] 1.035 H Urine Protein 2+ H Urine Glucose (UA) Negative Urine Ketones Trace H Urine Blood 3+ H Urine Nitrite Negative Urine Bilirubin 1+ H Urine Urobilinogen Positive H Ur Leukocyte Esterase 1+ H Urine WBC (Auto) 21-50 H Urine RBC (Auto) >20 H U Hyaline Cast (Auto) 11-20 H U Epithel Cells (Auto) 6-10 H Urine Bacteria (Auto) None Seen Granular Casts Present A Urine Comment Fluid Comment CSF Appearance CSF Color Xanthrochromic CSF WBC CSF RBC CSF Cell Count Tube # CSF Chemistry Tube # CSF Glucose CSF Total Protein CSF C.neoform/gat PCR CSF CMV DNA (PCR) CSF Enterovirus (PCR) CSF E. coli K1 (PCR) CSF H. influenzae (PCR) CSF HSV I (PCR) CSF HSV II (PCR) CSF HHV 6 (PCR) CSF L.monocytogenes PCR CSF N. meningitidis PCR CSF Parechovirus (PCR) CSF S. agalactiae (PCR) CSF S. pneumoniae (PCR) CSF VZV DNA (PCR) Random Vancomycin 16.7 Anaplasma Comment 10/06/24 10/06/24 10/05/24 19:38 14:55 23:43 WBC RBC Hgb POC Hgb Hct POC Hct MCV MCH MCHC RDW Std Deviation RDW Coeff of Kishor Plt Count MPV Reticulocyte % (Auto) Reticulocyte # Neutrophils % (Manual) Lymphocytes % (Manual) Reactive Lymphs % (Man) Monocytes % (Manual) Neutrophils # (Manual) Total Absolute Neuts Lymphocytes # (Manual) Reactive Lymphs # Total Abs Lymphocytes Monocytes # (Manual) Toxic Vacuolation Polychromasia Echinocytes Peripher Smr Path Cons Specimen Type Sample Site POC pH POC pCO2 POC pO2 POC HCO3 POC Total CO2 POC Base Excess O2 Sat Pulse Oximetry ABG pH (Temp Correct) ABG pCO2 (Temp Corrct POC ABG pO2 at Pt Temp POC ABG O2 Sat Manny Test O2 Delivery Device Vent Mode POC FiO2 End Tidal CO2 POC Sodium Sodium 118 L* 117 L* POC Potassium Potassium 3.5 3.5 Chloride 83 L 82 L Carbon Dioxide 28 28 Anion Gap 7 7 BUN 24 H 22 Creatinine 1.52 H 1.42 H Est Cr Clr Drug Dosing 69.5 74.4 eGFR 49.29 53.49 BUN/Creatinine Ratio 15.8 15.5 Glucose 106 H 138 H POC Glucose Calcium 7.3 L 7.2 L Ionized Calcium 0.94 L Phosphorus 3.9 Magnesium 2.1 Iron Transferrin Ferritin Troponin I High Sens 14.6 15.3 D Vitamin B12 Folate Urine Color Urine Appearance Urine pH Ur Specific [place] Urine Protein Urine Glucose (UA) Urine Ketones Urine Blood Urine Nitrite Urine Bilirubin Urine Urobilinogen Ur Leukocyte Esterase Urine WBC (Auto) Urine RBC (Auto) U Hyaline Cast (Auto) U Epithel Cells (Auto) Urine Bacteria (Auto) Granular Casts Urine Comment Fluid Comment CSF Appearance CSF Color Xanthrochromic CSF WBC CSF RBC CSF Cell Count Tube # CSF Chemistry Tube # CSF Glucose CSF Total Protein CSF C.neoform/gat PCR CSF CMV DNA (PCR) CSF Enterovirus (PCR) CSF E. coli K1 (PCR) CSF H. influenzae (PCR) CSF HSV I (PCR) CSF HSV II (PCR) CSF HHV 6 (PCR) CSF L.monocytogenes PCR CSF N. meningitidis PCR CSF Parechovirus (PCR) CSF S. agalactiae (PCR) CSF S. pneumoniae (PCR) CSF VZV DNA (PCR) Random Vancomycin Anaplasma Comment Pos for Anaplasma Diagnostic Findings Liver Ultrasound 10/06/24 13:48 Exam(s): US LIVER EXAM: US Abdomen Limited, Right Upper Quadrant CLINICAL HISTORY: Reason for exam: consideration for cirrhosis, r/o portal clot. TECHNIQUE: Real-time ultrasound of the right upper quadrant with image documentation. COMPARISON: No relevant prior studies available. FINDINGS: Liver: The liver is enlarged and of increased echogenicity.. No intrahepatic bile duct dilation. There is a 2.7 cm cyst noted in the right lobe of the liver. Gallbladder: The gallbladder wall measured 3.8 mm. No gallstones. Common bile duct: Unremarkable as visualized. No stones. The common bile duct measured 3.9 mm.. Pancreas: The pancreas is limitedly visualized. The visualized portions are unremarkable.. Right kidney: . No stones. No hydronephrosis. IMPRESSION: The liver is enlarged and of increased echogenicity which may be due to fatty infiltration and/or hepatocellular disease.. There is a 2.7 cm cyst noted in the right lobe of the liver. Electronically signed by: Fidel Macdonald MD 10/06/24 23:54 PM Portal Vein US 10/06/24 13:49 Exam(s): US OTHER DUPLEX PORTAL HEPATIC VEINS EXAM: US Duplex hepatic Veins CLINICAL HISTORY: Reason for exam: r/o clot. TECHNIQUE: Real-time duplex ultrasound scan of the liver integrating B-mode two- dimensional vascular structures, Doppler spectral analysis with color flow Doppler imaging. COMPARISON: No relevant prior studies available. FINDINGS: The hepatic veins are all patent. The main portal vein and the right and left portal veins are patent. The velocity in the main portal vein was 18.2 cm/s. There is a pattern pedal flow noted. No intraluminal thrombi are identified. The main hepatic artery is patent. The velocity was 47 cm/s. The resistive index is 0.71. The splenic vein is patent. IMPRESSION: The hepatic vessels are all patent. . Electronically signed by: Fdiel Macdonald MD 10/06/24 23:55 PM Lumbar Puncture 10/07/24 10:00 LUMBAR PUNCTURE UNDER FLUOROSCOPY CLINICAL HISTORY: Meningitis PROCEDURE: Procedure and risks were explained. Informed consent was obtained from the family. A final timeout was completed. The patient was placed prone on the fluoroscopic exam table. The lower lumbar region was prepped and draped in sterile fashion. 1% lidocaine was utilized for skin anesthesia. Utilizing fluoroscopic guidance, a 20-gauge spinal needle was advanced into the intrathecal space at the L3-4 disc space level. Fluoroscopic spot images were obtained. 10 mL of clear CSF fluid was removed and sent to lab for analysis. The needle was removed and Band-Aid applied. The patient tolerated the procedure well. Vital signs will be monitored postprocedure. Fluoroscopy time 5 seconds. Study dosed is 16.97 mGy. IMPRESSION: Lumbar puncture as above. Performed, dictated, and signed by Tda Lyon PA-C; to be co-signed by Dr. Colt Haro. Electronically signed by: Colt Haro M.D. 10/07/2024 1:25 PM Medications Administered Home Medications Medication Instructions Recorded Confirmed Last Taken No Known Home Medications 10/05/24 10/05/24 Unknown Active Medications Generic Name Dose Route Start Last Admin Trade Name Freq PRN Reason Stop Dose Admin Fentanyl Citrate 50 mcg 10/06/24 01:06 10/06/24 19:04 Fentanyl Citrate Pf 100 Mcg/2 Ml Vial IV 10/20/24 01:05 50 mcg Q2H PRN Administration Moderate Pain (4,5,6) on NRS Furosemide 60 mg 10/07/24 09:00 10/07/24 08:35 Furosemide 40 Mg/4 Ml Vial IV 11/06/24 08:59 60 mg Q6H [place] Administration Propofol 1,000 mg in 100 mls @ 36.336 mls/hr 10/06/24 00:45 10/07/24 12:49 Diprivan IV 10/09/24 00:44 40 mcg/kg/min .[id number] [place] 36.3 mls/hr Titration Protocol 40 MCG/KG/MIN Fentanyl Citrate 2,500 mcg in 250 mls @ 7.5 mls/hr 10/06/24 00:45 10/07/24 07:50 Fentanyl Citrate IV 10/20/24 00:44 75 mcg/hr .[id number] [place] 7.5 mls/hr Administration Protocol 75 MCG/HR Doxycycline Hyclate 100 mg/ 100 mls @ 50 mls/hr 10/06/24 16:00 10/07/24 06:25 Dextrose IV 10/20/24 08:59 Infused Q12H [place] Infusion Acetaminophen 1,000 mg in 100 mls @ 400 mls/hr 10/06/24 01:06 10/06/24 02:56 Ofirmev IV 10/09/24 01:05 Infused Q8H PRN Infusion Fever/Mild Pain (Pain 1,2,3) Azithromycin 500 mg in 255 mls @ 127.5 mls/hr 10/07/24 09:00 10/07/24 09:55 Zithromax IV 10/13/24 08:59 Infused Q24H [place] Infusion Pantoprazole Sodium 40 mg in 10 mls @ 5 mls/min 10/07/24 11:00 10/07/24 10:54 Protonix IV 11/06/24 10:59 5 mls/min DAILY@1100 [place] Administration Miscellaneous 1 each 10/06/24 07:30 10/07/24 12:09 Icu Protocol For Hyperglycemia N/A 10/08/24 07:29 1 each ACHS [place] Administration Nutritional Formula 1,000 ml 10/07/24 10:45 10/07/24 11:24 Peptamen Intense Vhp 1.0 Yves 1,000 Ml Bag OG 11/06/24 10:44 1,000 ml .See Protocol [place] Administration Protocol Polyethylene Glycol 17 gm 10/07/24 09:00 10/07/24 10:54 Polyethylene (Miralax) 17 Gm Pack GT 11/06/24 08:59 17 gm BID [place] Administration Sterile Water 30 ml 10/07/24 10:45 10/07/24 11:25 Tube Feeding Water Flush OG 11/06/24 10:44 30 ml Q4H [place] Administration
[2024-10-07] MEDS: HEPARIN SOD 5,000 UNIT/0.5 ML VIAL SQ SCH (14:15)
[2024-10-07] MEDS ORDERED: STAT IV Infusion **Titration per Protocol STA (14:52)
--- NOTE | 2024-10-07 15:30 | Electrocardiogram Report ---
Test Reason : Blood Pressure : */* mmHG Vent. Rate : 120 BPM Atrial Rate : * BPM P-R Int : * ms QRS Dur : 92 ms QT Int : 318 ms P-R-T Axes : * 11 2 degrees QTcB Int : 449 ms Atrial fibrillation with rapid ventricular response Low voltage QRS Abnormal ECG No previous ECGs available Confirmed by Gus Christian ([id number]) on 10/07/2024 3:30:34 PM Referred By: Frandy Fernandez Confirmed By: Gus Christian
[2024-10-07] MEDS ORDERED: ACYCLOVIR SOD 1,000 MG in DEXTROSE 5% 250 ML IV SCH (16:00)
--- NOTE | 2024-10-07 16:23 | Ultrasound Report ---
Clinical history: Renal failure Technique: Renal sonography was performed Findings: The kidneys are of normal size and echogenicity. The right kidney measures 12.1 cm in length and the left kidney measures 13.3 cm in length. There is a 3.7 x 3 x 2.5 cm left renal cyst. There is no hydronephrosis or visualized hydroureter. No definite renal calculus or mass is seen. The urinary bladder is decompressed, containing a Carey catheter. Impression: 1. Left renal cyst 2. Otherwise unremarkable renal sonogram Electronically signed by Jose Cox 10-07-2024 4:23 PM
--- NOTE | 2024-10-07 16:45 | Hospitalist Progress Note ---
Date of Service October 07, 2024 Assessment & Plan (1) JAREN (acute kidney injury): (2) Hyponatremia: (3) Atrial fibrillation: (4) Encephalopathy: (5) Anaplasmosis: (6) Lyme disease: (7) Cirrhosis: Plan 68-year-old male with HTN, tobacco use presenting as transfer from OSH for critical care in setting of critical hyponatremia. Neurologic: #Intubated #Metabolic Encephalopathy -intubated for airway protection, sedated at this time -before that, confused likely in setting of critical hyponatremia Plan: -high risk for delirium when extubated Cardiac: #Global LV Hypokinesis #Atrial Fibrillation #HTN -with preserved EF -still in atrial fibrillation Plan: -cardiology consulted, appreciate recs -aggressive diuresis per nephrology -blood thinners to be considered once more stable Respiratory: #Acute Hypoxic Respiratory Failure #CAP #Pulmonary Edema #Tobacco Use Disorder -concern for CAP given diffuse infiltrates, pulmonary edema and elevated BNP suggestive of fluid overload -bronchoscopy negative for infection -likely element of ANA as well Plan: -aggressive diuresis -antibiotics per ICU, currently on doxy and azithromycin -will likely benefit from sleep study if patient survives -ID consulted, appreciate recs GI: #Likely Cirrhosis -patient has likely cirrhosis given elevated transaminases, bilirubin, imaging findings -also has severely elevated ferritin, could be suggestive of infiltrative disease -low transerrin suggests underlying liver disease as well vs. renal failure -consideration that hyponatremia may be contribute to by cirrhosis -consideration for hepatorenal syndrome vs. cardiorenal syndrome vs. simple renal failure with severe cirrhosis Plan: -infiltrative disease workup outpatient -check daily LFTs, added on today -check hepatitis labs Renal: #Acute Renal Failure #Hypervolemic Hypoosmolar Hyponatremia -as evidenced by very poor PO output -urine studies consistent with hypervolemic hypoosomlar hyponatremia, likely in setting of decompensated HF vs. cirrhosis, vs. 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 This time includes: history taking, physical examination, medical decision making, counseling, ECG interpretation, imaging interpretation, lab interpretation, orders, and education, excluding time spent in the performance of separately billed services. Admission and Anticipated Discharge Date Admission Date: October 06, 2024 Subjective Patient seen and examined at bedside. Intubated and sedated at this time. RASS -4. Review of Systems Review of Systems: -unable to endorse at this time. Physical Exam Physical Exam: Gen: A&O 0 NAD, class III obesity HEENT: NCAT, EOMI, not icteric. External ears normal. No rhinorrhea. Moist mucous membranes. Neck: Supple, full range of motion, no observable masses, No meningeal sign. Lungs: No Respiratory distress. CV: irregular rhythm, tachycardic Abdomen: Soft, nondistended, No rebound tenderness. MSK: chronic venous stasis changes in legs bilaterally, trace mottling in feet Skin: No rashes, petechiae, lesions. Normal color per patient. Neuro: RASS -3 Results & Data Results & Data Vital Signs (Past 12 Hours) Vital Signs Temp Pulse Resp BP Pulse Ox O2 Del Method FiO2 10/07/24 15:00 36.8 C 93 H 16 96 10/07/24 14:39 36.8 C 86 16 96 10/07/24 14:39 89/60 L 10/07/24 14:17 93 H 16 95 35 10/07/24 14:00 36.7 C 92 H 16 95 10/07/24 13:39 36.6 C 99 H 16 10/07/24 13:39 90/65 L 10/07/24 13:09 36.4 C L 101 H 16 95 10/07/24 12:39 125/81 10/07/24 12:27 36.2 C L 101 H 16 94 10/07/24 12:00 36.0 C L 100 H 16 94 10/07/24 12:00 35 10/07/24 11:39 35.9 C L 128 H 26 H 91 10/07/24 11:39 141/118 H 10/07/24 11:00 36.0 C L 119 H 18 94 10/07/24 10:54 36.0 C L 96 H 16 94 10/07/24 10:50 102 H 16 94 35 10/07/24 10:39 118/80 10/07/24 09:45 36.0 C L 87 14 95 10/07/24 09:15 36.0 C L 88 16 94/69 L 96 10/07/24 08:09 36.0 C L 92 H 16 96 10/07/24 08:00 Mechanical Vent 10/07/24 08:00 35 10/07/24 07:56 103/69 10/07/24 07:54 36.0 C L 106 H 14 95 10/07/24 07:30 96 H 16 97 35 10/07/24 07:00 36.1 C L 80 16 97 10/07/24 06:42 36.1 C L 87 16 97 10/07/24 06:36 36.1 C L 90 16 96 10/07/24 06:26 88/67 L 10/07/24 06:24 36.1 C L 86 16 97 10/07/24 06:21 36.1 C L 92 H 16 97 10/07/24 06:18 36.1 C L 93 H 16 97 10/07/24 06:00 36.1 C L 77 16 97 10/07/24 05:56 91/65 L 10/07/24 05:56 91/65 L 10/07/24 05:56 91/65 L 10/07/24 05:54 36.1 C L 90 16 97 10/07/24 05:45 36.1 C L 88 16 96 10/07/24 05:36 36.1 C L 91 H 16 96 10/07/24 05:26 104/61 10/07/24 05:24 36.1 C L 83 16 96 10/07/24 05:21 36.1 C L 95 H 16 96 10/07/24 05:18 36.1 C L 82 16 96 10/07/24 05:00 36.1 C L 81 16 96 10/07/24 04:56 93/58 L 10/07/24 04:56 93/58 L 10/07/24 04:54 36.0 C L 88 16 96 10/07/24 04:51 36.0 C L 93 H 16 96 10/07/24 04:48 36.0 C L 84 16 96 10/07/24 04:41 16 35 Laboratory Results -personally reviewed, Hgb stable, ABG today with respiratory alkalosis, na of 118 relatively unchanged from prior, creatinine 1.98 uptrending, poor urine output, calcium 7.6, ferritin of 1300 concerning for infiltrative diseases, CSF protein of 60 elevated, minial WBC in CSF Medications Administered Fentanyl Citrate (Fentanyl Citrate Pf 100 Mcg/2 Ml Vial) 50 mcg IV Q2H PRN PRN Reason: Moderate Pain (4,5,6) on NRS Stop: 10/20/24 01:05 Last Admin: 10/06/24 19:04 Dose: 50 mcg Documented By: LINDA Heparin Sodium (Porcine) (Heparin Sod 5,000 Unit/0.5 Ml Vial) 7,500 units SQ Q8 [facility] [place] Stop: 11/06/24 13:59 Last Admin: 10/07/24 14:15 Dose: 7,500 units Documented By: DAVE Propofol (Diprivan) 1,000 mg in 100 mls @ 36.336 mls/hr IV .Q2H46M [place]; Protocol Stop: 10/09/24 00:44 Last Titration: 10/07/24 14:43 Dose: Infused Documented By: DAVE Co-signed By: INEZ Admin: 10/07/24 14:43 Dose: 40 mcg/kg/min, 36.3 mls/hr Documented By: DAVE Co-signed By: GPClemencia Titration: 10/07/24 12:49 Dose: 40 mcg/kg/min, 36.3 mls/hr Documented By: Admin: 10/07/24 12:10 Dose: Not Given Documented By: Admin: 10/07/24 12:10 Dose: Not Given Documented By: Admin: 10/07/24 11:45 Dose: 25 mcg/kg/min, 22.7 mls/hr Documented By: DAVE Co-signed By: INEZ Titration: 10/07/24 11:45 Dose: Infused Documented By: DAVE Co-signed By: GPClemencia Admin: 10/07/24 07:44 Dose: 20 mcg/kg/min, 18.2 mls/hr Documented By: DAVE Co-signed By: MARCY Titration: 10/07/24 07:44 Dose: Infused Documented By: DAVE Co-signed By: MARCY Titration: 10/07/24 06:48 Dose: 20 mcg/kg/min, 18.2 mls/hr Documented By: CP Co-signed By: JLM Admin: 10/07/24 04:22 Dose: Not Given Documented By: Admin: 10/07/24 04:21 Dose: Not Given Documented By: Admin: 10/07/24 04:21 Dose: Not Given Documented By: Titration: 10/07/24 03:56 Dose: 20 mcg/kg/min, 18.2 mls/hr Documented By: Admin: 10/07/24 02:45 Dose: Not Given Documented By: Admin: 10/07/24 02:29 Dose: 15 mcg/kg/min, 13.6 mls/hr Documented By: CP Co-signed By: TLM Titration: 10/07/24 02:29 Dose: Infused Documented By: CP Co-signed By: TLM Admin: 10/06/24 19:46 Dose: 15 mcg/kg/min, 13.6 mls/hr Documented By: CP Co-signed By: TLM Titration: 10/06/24 19:46 Dose: Infused Documented By: CP Co-signed By: TLM Titration: 10/06/24 19:05 Dose: 15 mcg/kg/min, 13.6 mls/hr Documented By: NMK Co-signed By: CP Admin: 10/06/24 12:42 Dose: 15 mcg/kg/min, 13.6 mls/hr Documented By: NMK Co-signed By: JB Titration: 10/06/24 12:42 Dose: Infused Documented By: NMK Co-signed By: JBH Titration: 10/06/24 06:43 Dose: 15 mcg/kg/min, 13.6 mls/hr Documented By: CP Co-signed By: NMK Titration: 10/06/24 05:52 Dose: 15 mcg/kg/min, 13.6 mls/hr Documented By: Admin: 10/06/24 05:30 Dose: 20 mcg/kg/min, 18.2 mls/hr Documented By: CP Co-signed By: BK Titration: 10/06/24 05:30 Dose: Infused Documented By: CP Co-signed By: BK Admin: 10/06/24 02:11 Dose: 20 mcg/kg/min, 18.2 mls/hr Documented By: CP Co-signed By: CECE Fentanyl Citrate (Fentanyl Citrate) 2,500 mcg in 250 mls @ 7.5 mls/hr IV .[id number] [facility] [place]; Protocol Stop: 10/20/24 00:44 Last Admin: 10/07/24 07:50 Dose: 75 mcg/hr, 7.5 mls/hr Documented By: DAVE Co-signed By: MARCY Titration: 10/07/24 07:50 Dose: Infused Documented By: DAVE Co-signed By: MARCY Titration: 10/07/24 06:48 Dose: 75 mcg/hr, 7.5 mls/hr Documented By: CP Co-signed By: DAVE Titration: 10/07/24 00:36 Dose: 75 mcg/hr, 7.5 mls/hr Documented By: MATTEO Co-signed By: CECE Titration: 10/06/24 19:05 Dose: 50 mcg/hr, 5 mls/hr Documented By: LINDA Co-signed By: MATTEO Titration: 10/06/24 11:32 Dose: 50 mcg/hr, 5 mls/hr Documented By: NMK Co-signed By: RITA Titration: 10/06/24 06:44 Dose: 25 mcg/hr, 2.5 mls/hr Documented By: MATTEO Co-signed By: LINDA Admin: 10/06/24 02:22 Dose: 25 mcg/hr, 2.5 mls/hr Documented By: MATTEO Co-signed By: JATIN Doxycycline Hyclate 100 mg/ (Dextrose) 100 mls @ 50 mls/hr IV Q12H [facility] [place] Stop: 10/20/24 08:59 Last Admin: 10/07/24 15:53 Dose: 50 mls/hr Documented By: Infusion: 10/07/24 06:25 Dose: Infused Documented By: Admin: 10/07/24 04:25 Dose: 50 mls/hr Documented By: Infusion: 10/06/24 18:44 Dose: Infused Documented By: Admin: 10/06/24 16:44 Dose: 50 mls/hr Documented By: LINDA Acetaminophen (Ofirmev) 1,000 mg in 100 mls @ 400 mls/hr IV Q8H PRN PRN Reason: Fever/Mild Pain (Pain 1,2,3) Stop: 10/09/24 01:05 Last Infusion: 10/06/24 02:56 Dose: Infused Documented By: Admin: 10/06/24 02:39 Dose: 400 mls/hr Documented By: MATTEO Azithromycin (Zithromax) 500 mg in 255 mls @ 127.5 mls/hr IV Q24H [place] Stop: 10/13/24 08:59 Last Infusion: 10/07/24 09:55 Dose: Infused Documented By: Admin: 10/07/24 07:44 Dose: 127.5 mls/hr Documented By: DAVE Pantoprazole Sodium (Protonix) 40 mg in 10 mls @ 5 mls/min IV DAILY@1100 [place] Stop: 11/06/24 10:59 Last Admin: 10/07/24 10:54 Dose: 5 mls/min Documented By: DAVE Miscellaneous (Icu Protocol For Hyperglycemia) 1 each N/A ACHS [place] Stop: 10/08/24 07:29 Last Admin: 10/07/24 15:54 Dose: 1 each Documented By: Admin: 10/07/24 12:09 Dose: 1 each Documented By: Admin: 10/07/24 08:04 Dose: 1 each Documented By: Admin: 10/06/24 19:59 Dose: Not Given Documented By: Admin: 10/06/24 17:12 Dose: Not Given Documented By: Admin: 10/06/24 12:40 Dose: Not Given Documented By: Admin: 10/06/24 08:54 Dose: Not Given Documented By: LINDA Nutritional Formula (Peptamen Intense Vhp 1.0 Yves 1,000 Ml Bag) 1,000 ml OG .See Protocol [place]; Protocol Stop: 11/06/24 10:44 Last Admin: 10/07/24 11:24 Dose: 1,000 ml Documented By: DAVE Polyethylene Glycol (Polyethylene (Miralax) 17 Gm Pack) 17 gm GT BID [place] Stop: 11/06/24 08:59 Last Admin: 10/07/24 10:54 Dose: 17 gm Documented By: DAVE Sterile Water (Tube Feeding Water Flush) 30 ml OG Q4H [place] Stop: 11/06/24 10:44 Last Admin: 10/07/24 14:16 Dose: 30 ml Documented By: Admin: 10/07/24 11:25 Dose: 30 ml Documented By: DAVE
[2024-10-07 17:11] LABS: Anion Gap 8.0 (3-11); Blood Urea Nitrogen 34.0 mg/dl (6-23); Calcium 7.4 mg/dl (8.6-10.3); Carbon Dioxide 28.0 mmol/L (21-32); Chloride 83.0 mmol/L (98-107); Creatinine Clr Calc Pharmacy 48.0 ml/min; Glucose 119.0 mg/dl (70-99(Fasting)); Potassium 3.7 mmol/L (3.5-5.1); Sodium 119.0 mmol/L (136-145)
[2024-10-07 18:08] LABS: Alanine Aminotransferase 35.0 U/L (7-52); Alkaline Phosphatase 61.0 U/L (34-104); Bilirubin,Total 0.7 mg/dl (0.2-1.0); Total Protein 5.3 gm/dl (6.0-8.3)
[2024-10-07] MEDS: ALBUMIN 25% 25 GM/100 ML VIAL IV SCH (19:48)
[2024-10-07] MEDS ORDERED: FUROSEMIDE 40 MG/4 ML VIAL IV SCH (20:00)
[2024-10-07 22:06] LABS: Anion Gap 10.0 (3-11); Blood Urea Nitrogen 36.0 mg/dl (6-23); Calcium 7.5 mg/dl (8.6-10.3); Carbon Dioxide 27.0 mmol/L (21-32); Chloride 83.0 mmol/L (98-107); Creatinine Clr Calc Pharmacy 45.0 ml/min; Glucose 96.0 mg/dl (70-99(Fasting)); Potassium 3.7 mmol/L (3.5-5.1); Sodium 120.0 mmol/L (136-145)
[2024-10-07 22:34] LABS: Hep B Core Total Antibody Negative (Negative)
[2024-10-07 22:38] LABS: Hep B Surface Ag with confirm Negative (Negative)
[2024-10-07 22:43] LABS: Hep C Ab Rflx HepCQuant RNA Negative (Negative)
[2024-10-08 01:16] LABS: Anion Gap 9.0 (3-11); Blood Urea Nitrogen 38.0 mg/dl (6-23); Calcium 7.5 mg/dl (8.6-10.3); Carbon Dioxide 28.0 mmol/L (21-32); Chloride 84.0 mmol/L (98-107); Creatinine Clr Calc Pharmacy 44.8 ml/min; Glucose 104.0 mg/dl (70-99(Fasting)); Potassium 3.4 mmol/L (3.5-5.1); Sodium 121.0 mmol/L (136-145)
[2024-10-08] MEDS: POTASSIUM CHLORIDE 20 MEQ/15 ML UDC PO STA (01:24)
[2024-10-08 04:44] LABS: Hematocrit (blood only) 28.7 % (42.0-52.0); Hemoglobin 9.9 g/dl (14.0-18.0); Mean Corpuscular Hemoglobin 28.0 pg (25.0-34.0); Mean Corpuscular Volume 81.3 fL (80.0-100.0); Platelet Count 171 K/uL (130-400); RDW Standard Deviation 43.8 fL (36.4-46.3); Red Blood Count 3.53 M/uL (4.70-6.10); White Blood Count 6.57 K/ul (4.8-10.8)
[2024-10-08 04:58] LABS: Anion Gap 9.0 (3-11); Blood Urea Nitrogen 37.0 mg/dl (6-23); Calcium 7.6 mg/dl (8.6-10.3); Carbon Dioxide 27.0 mmol/L (21-32); Chloride 85.0 mmol/L (98-107); Creatinine Clr Calc Pharmacy 42.5 ml/min; Glucose 105.0 mg/dl (70-99(Fasting)); Magnesium 2.5 mg/dl (1.7-2.4); Potassium 3.9 mmol/L (3.5-5.1); Sodium 121.0 mmol/L (136-145)
[2024-10-08 05:32] LABS: ALC (manual) 3.22 K/uL (1.2-3.4); ANC (manual) 3.02 K/uL (1.4-6.5); Polychromasia 1+; Reactive Lymphocytes # (manual) 1.45 K/uL; Reactive Lymphocytes % (manual) 22 %
[2024-10-08] MEDS: dexMEDEtomidine 200 MCG/50 ML BAG IV SCH (06:04)
--- NOTE | 2024-10-08 06:45 | Critical Care Progress Note ---
Date of Service October 08, 2024 Assessment & Plan (1) Thyroid nodule: (2) Anaplasmosis: (3) Lyme disease: (4) Hyponatremia with decreased serum osmolality: (5) Encephalopathy: Plan Reason Critically Ill: 68 YOM presented encephalopathic, febrile, and hyponatremic at admission. Initial concern for central nervous system infection as well as severe hyponatremia. Sodium is gradually improving with aggressive Lasix driven diuresis. Encephalopathy to be assessed following ceasing of sedation and extubation to [facility] Neuro - Encephalopathy CAM ICU: [facility] - Patient with several risks for HEALTH PROMOTION COORDINATOR type of infection- - LP performed 10/06- sample was bloody and clotted, only able to be tested was lyme and cryptococcal - CT guided LP completed 10/07, successful for sampling, see ID section for details - MRI showed mild chronic ischemic small vessel disease at frontoparietal white matter, no evidence of acute intracranial pathology - blood cultures are without growth at 48 hours - HIV pending - ID consultation appreciated, awaiting recommendation - Patient continues empirically treated with - Amp, acyclovir, Azithro, Rocephin, Doxycycline, and Vancomycin - DC Fentanyl and Propofol, start low dose Precedex to prepare for extubation and reduce agitation during procedure Cardiac - edema, elevated BNP - Patient continues with pitting edema from mid thigh to lower extremities bilaterally- difficult to ascertain into abdomen or sacral area secondary to b brad habitus - Continue to diurese with IV Lasix 100mg q8h - ECHO 10/06 shows LEF of 50-55%, borderline global hypokinesis of LV, dilated IVC with reduced collapsibility- indicating elevated R atrial pressure - Noted stable, persistent a-fib. Have been holding anticoagulation due to procedures to assess for possible infection. No further procedures are anticipated, plan to start po eliquis following successful extubation. Respiratory - concern for pneumonia Was intubated for diagnostic work up and encephalopathy. Work up completed. Repeat CXR this morning appears to show continued pulmonary edema and possible consolidation, which may make independent breathing difficult follow extubation. CXR findings were discussed with pt's family including risks and benefits of continued mechanical ventilation and extubation. Pt's sister, in conjunction with pt's wishes, (gathered by pt's brother today after sedation was stopped, but remained intubated) made the decision to continue with extubation and changing code status to DNI. - Bronch culture shows no growth - legionella urine pending - strep pneumo pending - CTX has been DC GI - Initiated feeds on 10/07. Following successful extubation, will plan for ST eval and progression to po with recommendations. Heart healthy diet vs regular diet with fluid restriction to assist with resolving hyponatremia. - Continue pantoprazole 40mg IV qd for GI prophylaxis RENAL/LYTES - Severe hyponatremia due to hypoosmolar hypervolemia secondary to HF vs exacerbation from infection - Cr is 2.44, eGFR is 27.76 - Na is 122 this morning, gradually improving - Continue diurese with IV lasix 100mg q8h - Monitor I/Os, potassium - Enlarged prostate seen on CT ab/pel - UA/culture is negative - continue with villalta until pt is alert and mobile, then consider trial voiding ENDO - abnormal TSH, thyroid nodule - Cortisol was 38.15, adequate response - TSH was low at 0.276 - can likely proceed with outpatient workup when stable HEME - No acute needs ID - - Continue airborne isolation - Continue Doxycycline for positive lyme and anaplasmosis - Continue Azithromycin for concern for atypical pneumonia - ID consult, recommendations appreciated as follows: - CTX, Vancomycin, ampicillin and acyclovir DC'ed due to low concern for CSF infection with most likely cause of encephalitis is metabolic - Low concern for HEALTH PROMOTION COORDINATOR infection, successful LP with CSF samples on 10/07. Gram stains initially negative, pending cultures LINES/IV ACCESS - CVL, PIV, ETT, Villalta, OGT Continue use of these lines DVT PROPHYLAXIS - SCDS, plan to start Eliquis DISPO: Pending respiratory stability following extubation, pt stable to downgrade to medical floor. Admission and Anticipated Discharge Date Admission Date: October 06, 2024 Supervising Physician Co-Signing Physician Notes Patient is a 69-year-old male with no known past medical history. The patient does not follow with any healthcare providers for many years. The patient presented to the hospital 10/05/2024 due to altered mental status and muscle weakness and poor motor function. On arrival to [facility] the patient was encephalopathic and hypoxic. Labs were significant for hyponatremia at 113, elevated BNP and elevated D-dimer. The patient was administered 2 L of normal saline as well as 2 A of bicarb. Imaging showed no acute intracranial process, CT of the chest did not show evidence of large PE however it was a po candy timed contrast study, and CT abdomen pelvis did not show acute process. The patient was then transferred to [facility] [address]. On arrival his sodium had increased to 118. He was noted to be grossly volume overloaded. The patient was not following commands. Family (2 sons, Obinna and Shivam and daughter Ila) were included in a discussion and they agreed to intubating the patient to allow for LP. They did note however that he would not want to be on a ventilator. The patient underwent lumbar puncture, this was a bloody tap however and difficult due to body habitus. Serology showed Lyme antibody is positive on 10/05/2024 and intracytoplasmic neutrophil inclusions noted on Anaplasma smear 10/05/2024. The patient was noted to be febrile on admission however this has since resolved. He was placed on antiviral/antimicrobial medications to cover for HEALTH PROMOTION COORDINATOR infection including Rocephin, azithromycin (to cover for Legionella which is pending), doxycycline, acyclovir, ampicillin and vancomycin. Infectious disease consult was placed. Sodium was monitored, has fluctuated around 118 without much improvement. The patient was grossly volume overloaded, an echocardiogram was obtained which showed preserved ejection fraction with an EF of 50 to 55%, moderate concentric LVH and borderline global hypokinesis. Cardiology was consulted. The patient was started on diuretics overnight on 10/06/2024. Repeat lumbar puncture was performed on 10/07/2024 with a clear tap. Reason Critically Ill: Altered mental status, metabolic encephalopathy in setting of severe hyponatremia Hypervolemic hyponatremia Acute kidney injury Lyme antibody detected Anaplasmosis smear positive for inclusion bodies LVH/hypokinesis on echo, component of HFpEF Volume overload DM2 Atrial Flutter Neuro: Patient had altered mental status. Required intubation for invasive procedures including lumbar puncture. Hyponatremia with a sodium of 113 on arrival may have contributed. Covered for meningitis/encephalitis with broad-spectrum antimicrobial/antiviral. LP 10/06/2024 with inadequate samples obtained. Repeat LP 10/07/2024 with clear colorless CSF, low WBCs, 21% lymphocytes. Normal glucose. Total protein elevated at 59.8 (45 is the upper limit of normal). PCR, Lyme antibodies and cultures are pending. Extubated today, mentation is significantly improved. Patient is calm and following commands. Cardiac: Echocardiogram showing EF of 55% however there is hypokinesis as well as LVH. Patient is grossly volume overloaded on exam. Still net positive fluid balance. Started diuresing aggressively 10/07/2024. Patient is starting to make urine. Still positive net fluid balance overall and will require additional diuresis. Has had atrial flutter on the monitor throughout his ICU stay. [id number] is 3-4. Risk of CVA per year 3.2 to 4.8%. I offered systemic anticoagulation to the patient today. He is not interested in receiving this medication. Unclear if he has a history of alcohol use. We will initiate thiamine today. Respiratory: Intubated for invasive procedures on 10/06/2024. Extubated today 10/08/2024 to nasal cannula. Underwent bronchoscopy 10/05/2024, right middle lobe BAL negative. Chest x-ray today shows worsening bilateral lower lobe infiltrates likely representing pleural effusions and atelectasis with possible superimposed pneumonia. Patient made himself a DO NOT INTUBATE. Will continue Doxy and a azithromycin. Not having any phlegm production and did not have any significant ET tube secretions. on admission. Procalcitonin is only slightly increased compared to admission. Initiated pulmonary toilet with incentive spirometer, Acapella, DuoNebs and saline nebulizers. GI: Speech is consulted. Patient is having a full liquid diet, 1.5 L fluid restriction. Pantoprazole daily. MiraLAX for bowel regimen. Likely has a component of PINEDA with increased echogenicity of the liver on imaging. RENAL/LYTES: Hyponatremia, this is improving. 121 today. Creatinine elevated. Nephrology is consulted. Believe likely ATN. Renal ultrasound within normal limits. Hypervolemic hyponatremia. Likely in setting of CHF, CKD and a component of cirrhosis. Getting Lasix 100 mg every 8 hours. Keep Villalta. Monitor strict I's and O's. Monitor renal function. Can decrease the frequency of lab checks, can check BMP every 12 hours. : Villalta catheter in place. ENDO : Glucose acceptable. Monitoring with frequent chemistries. A1c is elevated at 6.5. No previous history of diabetes. New diagnosis. HEME: CBC acceptable at this time. Had mild lymphopenia that has improved. Monitor with daily labs. ID: Lyme antibody detected 10/05/2024. Inclusion bodies detected on anaplasmosis smear 10/05/2024. LP 10/07/2024 with clear yellow fluid. Low WBCs. 21% lymphocytes. Normal glucose. Protein is slightly elevated at 59. PCR is negative, West Nile and Lyme antibodies are pending. MRSA nares is negative. Legionella is pending. Urine culture negative. Sputum culture, BAL from RM with no growth to date. Blood culture from admission with no growth to date. Patient was initially on doxycycline, Rocephin, azithromycin, ampicillin, acyclovir and vancomycin. We stopped vancomycin, ampicillin, acyclovir and Rocephin on 10/07/2024. We will continue azithromycin until Legionella antigen returns. Will continue doxycycline for the Lyme and anaplasmosis. Infectious diseases consulted. Recommend continuing only doxycycline. Prophylaxis VTE: Heparin subcu. Patient does not want systemic anticoagulation for atrial flutter. GI: Pantoprazole 40 mg daily. Lines: IJ CVC Diet: Passed swallow evaluation, full liquid diet with 1.5 L fluid restriction. Code: DNI Plan: Patient remain in the ICU today. Successfully expanded to nasal cannula. May require BiPAP or CPAP tonight if he desaturates. Likely does have underlying obstructive sleep apnea/OHS. We will repeat chest x-ray tomorrow morning. Continue mechanical ventilation. We will try to diurese. Nephrology is consulted. Will get renal ultrasound. We will decrease the frequency of labs to every 12 hours. Continue azithromycin and doxycycline. Continue aggressive diuresis, monitor I's and O's. I discussed the case in detail with the family yesterday and today. His sister Ila has been present for much of his care. Family was present during bedside rounds this morning. Dr. Frost was the resident-physician during care of patient. I separately evaluated patient for cantrell portions of the history and the exam. I was present during the critical portion of medical decision making, and I discussed the case with the resident. I generally agree with the findings and plan except for any additions/exceptions noted. I have personally spent 45 minutes of critical care time in the direct management of this patient. This is a life/limb threatening event. This includes time spent evaluating patient, direct bedside care, chart review, placing orders, interpretation of diagnostic studies, discussion with consultants, patient, and family members, as well as other required patient management activities. This time is exclusive of all separately billable procedures, and teaching time and separate from and in addition to any other critical care service time. Subjective At exam this am, pt remained intubated and sedated. Pt awoke to loud voice and sternal rub. He appeared agitated and tried to reach for tubing. Family was outside of room today and anticipating extubation. After sedation was turned off but before extubation, pt's brother asked pt if he would want to be re-intubated following extubation should he have difficulty breathing. Pt answered with a head shake, indicating an answer of No, he wished for code status of DNI. Review of Systems Review of Systems: Unable to obtain due to intubation and sedation. Physical Exam Physical Exam: Gen: Awakes to touch and voice, moves arms and legs HENT: Normocephalic, atraumatic. External ear without deformities. Trachea midline, no thyromegaly Cardio: A-fib, no murmurs or clicks. No JVD. 2+ distal pulses Resp: Intubated, CTAB, Equal bilateral chest rise GI: Obese, but nondistended, soft abdomen, normoactive bowel sounds in all 4 quadrants : Villalta in place, yellow urine MSK: Moving all 4 extremities independently Skin: Dry, scaling skin at bilateral lower legs and feet, Excoriated skin at bilateral upper arms and anterior chest, open lesions at right upper arms Neuro: Sedated, but awakes to touch, independent movement of extremities against gravity, unable to follow commands and maintain alertness due to sedation. Results & Data Results & Data Vital Signs (Past 12 Hours) Vital Signs Temp Pulse Resp BP Pulse Ox O2 Del Method FiO2 10/08/24 05:54 36.4 C L 71 16 109/64 95 Mechanical Vent 10/08/24 05:00 36.5 C 71 24 93/62 L 95 Mechanical Vent 10/08/24 04:00 10/08/24 04:00 36.5 C 73 16 96/61 L 95 Mechanical Vent 10/08/24 03:09 36.5 C 71 16 100/61 96 Mechanical Vent 10/08/24 02:13 72 16 97 10/08/24 02:03 36.4 C L 70 14 100/64 96 Mechanical Vent 10/08/24 01:12 36.4 C L 76 14 98/54 L 95 Mechanical Vent 10/08/24 00:00 36.4 C L 84 14 92/67 L 95 10/07/24 23:58 30 10/07/24 23:06 36.4 C L 72 14 102/60 96 Mechanical Vent 10/07/24 22:53 79 16 96 10/07/24 22:09 36.5 C 84 14 91/60 L 96 Mechanical Vent 10/07/24 21:00 36.6 C 87 17 98/66 L 95 Mechanical Vent 10/07/24 20:10 Mechanical Vent 10/07/24 20:09 78 16 96 10/07/24 20:03 36.8 C 80 16 96 30 10/07/24 20:00 35 10/07/24 19:09 36.9 C 82 16 94/63 L 96 Mechanical Vent 35 10/07/24 18:50 90 Resident Activity Tracking Resident Involvement: Resident Care Provided Care Provided: Adult Hospital Medicine
--- NOTE | 2024-10-08 08:11 | XRay Report ---
XR chest 1V portable CLINICAL HISTORY: f/u, pulm edema, pna, intubation COMPARISON STUDY: 10/06/2024 FINDINGS: Endotracheal tube tip is between the thoracic inlet and the swapnil approximately 3 cm above the swapnil. Nasogastric tube tip is not seen, likely off the field of view inferiorly. Right central catheter is stable. There is stable cardiomegaly with increased pulmonary vascular congestion. There is increased opacity in the lung bases with obscuration of the diaphragm. No pneumothorax. IMPRESSION: Increased lung base opacity could represent atelectasis, pneumonia, or pleural effusions . ACT 112: Negative or not required by law. Electronically signed by: Colt Haro M.D. 10/08/2024 8:09 AM
[2024-10-08] MEDS: THIAMINE HCL 100 MG in SYRINGE 9 ML IV SCH (08:19)
--- NOTE | 2024-10-08 09:17 | Nephrology Progress Note ---
Date of Service October 08, 2024 Assessment & Plan Admission and Anticipated Discharge Date Admission Date: October 06, 2024 Subjective Assessment & Plan (1) Hyponatremia: severe hyponatremia with a serum sodium of 118. despite IV fluid initially and currently Lasix sodium has not really moved much and ranges anywhere from 116- 119 for the last 2 days. we do not have prior blood work to compare so not possible to know how much of this is acute drop versus chronic hyponatremia. he was not on any medications to cause hyponatremia as he was not taking any medications. it is also not clear how much alcohol he was drinking. As per the H and P and sisters account he did drink beer but not clear how many and how often. imaging so far is consistent with possible cirrhosis which could be related with alcohol intake versus PINEDA. He has findings suggestive of volume overload. He has started to make urine increasing amount . given this will recommend to continue the Lasix 100 mg every 8 hours and will give with 25 % albumin every 8 hours. given severe hyponatremia would like to avoid using metolazone or Aldactone for now. not advisable to use urea given liver issues and not advisable to use salt tablet given volume overload and high blood pressure. my working diagnosis is patient has chronic hyponatremia but since he developed ATN with oliguria the hyponatremia got significantly worse. he likely developed ATN in the setting of infection and new onset AFib. also unless we achieve brisk diuresis sodium will not go up. Now with some diuresis Na+ starting to rise very slowly. (2) Encephalopathy: he was significantly confusion admission and currently is intubated for airway protection in his sedated. unclear etiology of encephalopathy. will follow (3) JAREN (acute kidney injury): on admission he had normal creatinine of 0.8 but it has since then gone up steadily and peaked at 2.44 but since then has dropped a little bit. essentially doubling of creatinine from baseline. this would qualify as acute kidney injury. his urine sediment is very active with lots of epithelial cells hyaline casts so consistent with possible ATN. my working diagnosis is patient has chronic hyponatremia but since he developed ATN with oliguria the hyponatremia got significantly worse. S--Started to make more urine. Now extubated. family at bedside. physical examination elderly white male who appears to be very disheveled and unkempt. now extubated mucous membrane is moist. Neck is supple no JVD chest bilateral decreased breath sound with ventilator conductive sound CVS S1 and S2 tachycardic distant heart sounds abdomen is distended and obese extremities--- bilateral 2+ edema with chronic skin changes as well as very unkempt skin Results & Data Vital Signs (Past 12 Hours) Vital Signs Temp Pulse Resp BP Pulse Ox O2 Del Method FiO2 10/08/24 07:18 64 16 95 30 10/08/24 05:54 36.4 C L 71 16 109/64 95 Mechanical Vent 10/08/24 05:00 36.5 C 71 24 93/62 L 95 Mechanical Vent 10/08/24 04:00 30 10/08/24 04:00 36.5 C 73 16 96/61 L 95 Mechanical Vent 10/08/24 03:09 36.5 C 71 16 100/61 96 Mechanical Vent 10/08/24 02:13 72 16 97 10/08/24 02:03 36.4 C L 70 14 100/64 96 Mechanical Vent 10/08/24 01:12 36.4 C L 76 14 98/54 L 95 Mechanical Vent 10/08/24 00:00 36.4 C L 84 14 92/67 L 95 10/07/24 23:58 30 10/07/24 23:06 36.4 C L 72 14 102/60 96 Mechanical Vent 10/07/24 22:53 79 16 96 10/07/24 22:09 36.5 C 84 14 91/60 L 96 Mechanical Vent
[2024-10-08 09:47] LABS: Anion Gap 9.0 (3-11); Blood Urea Nitrogen 42.0 mg/dl (6-23); Calcium 7.7 mg/dl (8.6-10.3); Carbon Dioxide 28.0 mmol/L (21-32); Chloride 84.0 mmol/L (98-107); Creatinine Clr Calc Pharmacy 44.8 ml/min; Glucose 111.0 mg/dl (70-99(Fasting)); Potassium 3.4 mmol/L (3.5-5.1); Sodium 121.0 mmol/L (136-145)
--- NOTE | 2024-10-08 10:04 | Cardiology Progress Note ---
Date of Service October 08, 2024 Assessment & Plan (1) Atrial fibrillation: (2) Encephalopathy: (3) Hyponatremia with decreased serum osmolality: (4) JAREN (acute kidney injury): Plan 69-year-old male recluse admitted after presenting with symptoms of worsening confusion and encephalopathy. Marked metabolic derangement notable including hyponatremia hypocalcemia. Patient in atrial fibrillation with variable ventricular response rate on presentation rapid currently well-controlled on no AV eugenio blocking medications. Patient extubated a.m. of 10/08/2024 Echocardiogram low normal LV function EF 50-55%, dilated inferior vena cava, consistent with elevated central venous pressure . EKG performed 10/08/2024 at 4:56 AM and interpreted independently: Atrial fibrillation at 75 bpm and age-indeterminate lateral infarct cannot be excluded based on morphology of the QRS complexes in the lateral precordial leads. No acute repolarization abnormalities. Patient certainly has risk factors for tickborne disease Anaplasmosis screen suggestive of infection. Lyme serology with positive IgG and IgM. Creatinine slightly worse but sodium improving, diuresing well. -Nephrology input noted and appreciated, continue furosemide 100 mg IV every 8 hours, IV albumin 25 g IV every 8 hours -Atrial fibrillation of uncertain duration with Controlled ventricular rate. -Overall LV systolic function low normal with mild left atrial enlargement -Continue to observe off of AV eugenio blockers -Systemic anticoagulation for stroke prophylaxis in the setting of atrial fibrillation indicated, but it is unclear if the patient is a long-term anticoagulation candidate due to his preference to not be on medications and lack of reliability as certainly this is a medication that could pose certain risks if patient is unable to take it reliably as directed. Cardiology will continue to follow I spent a total of 50 minutes on the date of service in preparation, delivery, and documentation of the care provided to this patient, excluding any time spent in the performance of separately billed services. Jessica Roland DO Admission and Anticipated Discharge Date Admission Date: October 06, 2024 Subjective Patient seen in cardiology follow-up. He had been extubated this morning just after 8 AM. Tolerating nasal cannula. Conversant. Telemetry reveals rate controlled atrial fibrillation in the 70s. Physical Exam Physical Exam: Temp Pulse Resp BP Pulse Ox O2 Del Method O2 Flow Rate 36.4 C L 64 16 109/64 95 Mechanical Vent 2 10/08/24 05:54 10/08/24 07:18 10/08/24 07:18 10/08/24 05:54 10/08/24 07:18 10/08/24 05:54 10/05/24 23:00 FiO2 30 10/08/24 07:18 Constitutional: + morbidly obese Neck: + thick neck Respiratory: no audible wheezes Cardiovascular: Rate/Rhythm: + irregularly irregular Heart Sounds: normal S1 and normal S2 Extremities: + edema (3+ lower extremity edema with chronic stasis changes) Gastrointestinal (Abdomen): Inspection/Auscultation: + abdomen distended Neurologic: Conversant. Moves all 4 extremities. Results & Data Laboratory Results Cardiac Enzymes 10/07/24 Range/Units 16:29 AST 35 (13-39) U/L CBC 10/08/24 Range/Units 04:18 WBC 6.57 (4.8-10.8) K/ul RBC 3.53 L (4.70-6.10) M/uL Hgb 9.9 L (14.0-18.0) g/dl Hct 28.7 L (42.0-52.0) % Plt Count 171 (130-400) K/uL Comprehensive Metabolic Panel 10/07/24 10/07/24 10/07/24 Range/Units 11:30 16:29 20:49 Sodium 118 L* 119 L* 120 L (136-145) mmol/L Potassium 3.8 D 3.7 3.7 (3.5-5.1) mmol/L Chloride 82 L 83 L 83 L (98-107) mmol/L Carbon Dioxide 28 28 27 (21-32) mmol/L BUN 32 H 34 H 36 H (6-23) mg/dl Creatinine 1.98 H 2.16 H 2.30 H (0.6-1.4) mg/dl Glucose 115 H 119 H 96 (70-99(Fasting)) mg/dl Calcium 7.6 L 7.4 L 7.5 L (8.6-10.3) mg/dl Direct Bilirubin 0.4 H (0-0.2) mg/dl AST 35 (13-39) U/L ALT 35 (7-52) U/L Alkaline Phosphatase 61 (34-104) U/L Total Protein 5.3 L (6.0-8.3) gm/dl Albumin 2.3 L (3.4-5.0) gm/dl 10/08/24 10/08/24 10/08/24 Range/Units 00:47 04:18 09:03 Sodium 121 L 121 L 121 L (136-145) mmol/L Potassium 3.4 L 3.9 3.4 L (3.5-5.1) mmol/L Chloride 84 L 85 L 84 L (98-107) mmol/L Carbon Dioxide 28 27 28 (21-32) mmol/L BUN 38 H 37 H 42 H (6-23) mg/dl Creatinine 2.31 H 2.44 H 2.35 H (0.6-1.4) mg/dl Glucose 104 H 105 H 111 H (70-99(Fasting)) mg/dl Calcium 7.5 L 7.6 L 7.7 L (8.6-10.3) mg/dl Direct Bilirubin (0-0.2) mg/dl AST (13-39) U/L ALT (7-52) U/L Alkaline Phosphatase (34-104) U/L Total Protein (6.0-8.3) gm/dl Albumin (3.4-5.0) gm/dl Intake and Output 10/07/24 10/08/24 10/08/24 22:59 06:59 14:59 Intake Total 477.940 / 1784.346 560.383 / 1784.346 138.418 / 138.418 Output Total 405 / 1320 540 / 1320 700 / 700 Balance 72.940 / 464.346 20.383 / 464.346 -561.582 / -561.582 Intake: IV 477.940 / 1784.346 560.383 / 1784.346 138.418 / 138.418 Albumin 25% 25 gm In 100 ml @ 100 / 200 100 / 200 50 mls/hr IV Q8H [facility] Rx#: [id number] Doxycycline Hyclate 100 mg In 100 / 200 100 / 200 Dextrose 5% Mini-B 100 ml @ 50 mls/hr IV Q12H [facility] Rx#:[id number] dexMEDEtomidine 200 mcg In 50 4.25 / 4.25 35.407 / 35.407 ml @ 0.4 MCG/KG/HR 15 mls/hr IV .Q3H20M [facility] Rx#:[id number] fentaNYL citrate 2,500 mcg In 85.375 / 93.125 88.625 / 88.625 250 ml @ 75 MCG/HR 7.5 mls/hr IV .[id number] [facility] Rx#:[id number] propofoL 1,000 mg In 100 ml @ 0 192.565 / 731.971 356.133 / 731.971 14.386 / 14.386 MCG/KG/MIN IV .Q0M [facility] Rx#: [id number] Oral 0 / 0 Output: Urine Amount (Catheter) 405 / 1320 540 / 1320 700 / 700 Carey/Indwelling 405 / 1320 540 / 1320 700 / 700 Other: Weight 154.2 kg Weight Measurement Method [facility] [employer] [facility] [place] [address] SUB INP/OBS CARE 3/50MIN Patient Type Established History Comprehensive Exam Comprehensive Medical Decision Making High Complexity Diagnoses Atrial fibrillation I48.91 Encephalopathy G93.40 Hyponatremia with decreased serum osmolality E87.1 JAREN (acute kidney injury) N17.9
[2024-10-08] MEDS: ALBUT/IPRATROP 3MG/0.5MG NEB 3 ML VIAL ONE (10:05)
[2024-10-08] MEDS: ALBUT/IPRATROP 3MG/0.5MG NEB 3 ML VIAL NEB SCH (10:05)
--- NOTE | 2024-10-08 11:18 | Billing Data ---
Date of Service October 08, 2024 Coding Level of Care Code 92352 CRITICAL CARE
--- NOTE | 2024-10-08 12:02 | Hospitalist Progress Note ---
Date of Service October 08, 2024 Assessment & Plan (1) JAREN (acute kidney injury): (2) Hyponatremia: (3) Atrial fibrillation: (4) Encephalopathy: (5) Anaplasmosis: (6) Lyme disease: (7) Cirrhosis: Plan 68-year-old male with HTN, tobacco use presenting as transfer from OSH for critical care in setting of critical hyponatremia. Acute metabolic encephalopathy Likely multifactorial: Infection, hyponatremia --MRI brain:No evidence of acute intracranial pathology or abnormal contrast enhancement. Mild chronic ischemic small vessel disease and mild age-related brain changes. Bilateral mild maxillary sinusitis. --S/P lumbar puncture --CSF studies pending -Blood cultures negative to date --S/P Extubation on 10/08/24 --patient empirically treated with ampicillin, acyclovir, azithromycin, Rocephin, doxycycline and vancomycin --Currently on azithromycin, doxycycline -- Delirium precautions Acute Renal Failure likely ATN Hypervolemic Hypoosmolar Hyponatremia Left renal cyst: Incidental finding on imaging Hypokalemia Suspected chronic hyponatremia --Renal US:Left renal cyst. Otherwise unremarkable renal sonogram --Cr:2.35 today -- Sodium levels improved to 125 today --Continue IV Lasix along with albumin as recommended by nephrology --Appreciate nephrology input --Monitor sodium level, renal function, urine output closely --Replace electrolytes as needed Atrial Fibrillation HTN --ECHO: Left ventricle is normal in size. Moderate concentric LVH. Borderline global hypokinesis of left ventricle. EF 50 to 55%. Left atrium is mildly dilated. No significant valvular disease. -- Rate is controlled Monitor off AV eugenio blockers Long-term systemic anticoagulation risk versus benefits to be determined Appreciate cardiology input Acute Hypoxic Respiratory Failure CAP Pulmonary Edema Tobacco Use Disorder Suspected ANA, obesity hypoventilation --Elevated procalcitonin --Bronchoscopy negative for infection --Bronchial cultures negative --Urine for Legionella pending -likely element of ANA as well --Continue IV diuresis per nephrology --Continue azithromycin, also on doxycycline --Other empiric antibiotics discontinued --Will need sleep study as outpatient Likely Cirrhosis Liver cyst -patient has likely cirrhosis Possible hepatorenal syndrome ? Alcohol use --Liver USD:The liver is enlarged and of increased echogenicity which may be due to fatty infiltration and/or hepatocellular disease. There is a 2.7 cm cyst noted in the right lobe of the liver. -- Portal vein ultrasound:The hepatic vessels are all patent. 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 --Continue doxycycline -Appreciate ID input- Morbid obesity BMI 46 Thyroid nodule Decreased TSH, normal free T4 Will need further workup as outpatient DM II HbA1c 6.5 Consider adding insulin if needed Will consult music educator when appropriate BPH PSA 4.5 Needs follow-up as outpatient DVT Px: Heparin SQ CODE STATUS Conditional code Admission and Anticipated Discharge Date Admission Date: October 06, 2024 Subjective Patient is seen and examined at bedside Extubated this morning Patient states feeling very weak today He is unsure of the events prior to getting hospitalized Denies any chest pain, dyspnea Poor historian No distress on exam Review of Systems Review of Systems: Other Physical Exam Physical Exam: Physical Exam: Vitals signs as noted above General Appearance:Morbidly Obese, no apparent distress Head: normocephalic, Atraumatic Eyes: normal inspection, EOMI Neck: supple, Trachea midline Respiratory/Chest: Normal breath sounds, CTA, No accessory muscle use Cardiovascular: Irregularly irregular, No murmur Abdomen/GI:Soft, Non tender, + protuberant, bowel sounds present Extremities/Musculoskeletal:normal inspection, B/L LE edema,+ chronic venous stasis changes Neurologic/Psych: Alert, awake, oriented to person, place, grossly moves all extremities Skin: normal color, warm, UE wound Results & Data Results & Data Vital Signs (Past 12 Hours) Vital Signs Temp Pulse Pulse Resp BP Pulse Ox O2 Del Method 10/08/24 10:39 84 27 H 10/08/24 10:09 36.4 C L 90 16 128/67 96 10/08/24 10:05 89 18 94 Nasal Cannula 10/08/24 09:39 36.5 C 85 16 95 10/08/24 09:39 94/59 L 10/08/24 09:39 94/59 L 10/08/24 09:39 94/59 L 10/08/24 09:03 36.7 C 74 19 93 10/08/24 08:39 100/67 10/08/24 08:39 100/67 10/08/24 08:36 36.7 C 80 31 H 94 10/08/24 08:33 36.7 C 72 27 H 92 10/08/24 08:03 36.8 C 94 H 26 H 93 10/08/24 08:00 84 10/08/24 07:52 129/93 10/08/24 07:52 129/93 10/08/24 07:30 36.7 C 63 16 93 10/08/24 07:18 64 16 95 10/08/24 07:00 36.5 C 63 16 96 10/08/24 06:45 36.5 C 69 16 96 10/08/24 06:18 36.4 C L 70 16 96 10/08/24 05:54 36.4 C L 71 16 109/64 95 Mechanical Vent 10/08/24 05:00 36.5 C 71 24 93/62 L 95 Mechanical Vent 10/08/24 04:00 10/08/24 04:00 36.5 C 73 16 96/61 L 95 Mechanical Vent 10/08/24 03:09 36.5 C 71 16 100/61 96 Mechanical Vent 10/08/24 02:13 72 16 97 10/08/24 02:03 36.4 C L 70 14 100/64 96 Mechanical Vent 10/08/24 01:12 36.4 C L 76 14 98/54 L 95 Mechanical Vent 10/08/24 00:00 36.4 C L 84 14 92/67 L 95 10/07/24 23:58 O2 Flow Rate FiO2 10/08/24 10:39 10/08/24 10:09 10/08/24 10:05 6 10/08/24 09:39 10/08/24 09:39 10/08/24 09:39 10/08/24 09:39 10/08/24 09:03 10/08/24 08:39 10/08/24 08:39 10/08/24 08:36 10/08/24 08:33 10/08/24 08:03 10/08/24 08:00 10/08/24 07:52 10/08/24 07:52 10/08/24 07:30 10/08/24 07:18 30 10/08/24 07:00 10/08/24 06:45 10/08/24 06:18 10/08/24 05:54 30 10/08/24 05:00 30 10/08/24 04:00 30 10/08/24 04:00 30 10/08/24 03:09 30 10/08/24 02:13 30 10/08/24 02:03 30 10/08/24 01:12 30 10/08/24 00:00 10/07/24 23:58 30 Laboratory Results Short CBC 10/08/24 Range/Units 04:18 WBC 6.57 (4.8-10.8) K/ul Hgb 9.9 L (14.0-18.0) g/dl Hct 28.7 L (42.0-52.0) % Plt Count 171 (130-400) K/uL BMP 10/07/24 10/07/24 10/07/24 11:30 16:29 20:49 Sodium 118 L* 119 L* 120 L Potassium 3.8 D 3.7 3.7 Chloride 82 L 83 L 83 L Carbon Dioxide 28 28 27 BUN 32 H 34 H 36 H Creatinine 1.98 H 2.16 H 2.30 H Glucose 115 H 119 H 96 Calcium 7.6 L 7.4 L 7.5 L 10/08/24 10/08/24 10/08/24 00:47 04:18 09:03 Sodium 121 L 121 L 121 L Potassium 3.4 L 3.9 3.4 L Chloride 84 L 85 L 84 L Carbon Dioxide 28 27 28 BUN 38 H 37 H 42 H Creatinine 2.31 H 2.44 H 2.35 H Glucose 104 H 105 H 111 H Calcium 7.5 L 7.6 L 7.7 L Liver Function 10/07/24 Range/Units 16:29 Total Bilirubin 0.7 D (0.2-1.0) mg/dl Direct Bilirubin 0.4 H (0-0.2) mg/dl AST 35 (13-39) U/L ALT 35 (7-52) U/L Alkaline Phosphatase 61 (34-104) U/L Albumin 2.3 L (3.4-5.0) gm/dl
[2024-10-08 13:52] LABS: Hepatitis A Antibody IgM NON-REACTIVE (NON-REACTIVE); Hepatitis B Core Antibody IgM NON-REACTIVE (NON-REACTIVE)
[2024-10-08] MEDS ORDERED: POTASSIUM CHLORIDE CRTAB 20 MEQ TABCR PO STA (15:09)
[2024-10-08] MEDS: POTASSIUM CHLORIDE / WTR 20 MEQ/100 ML PLCT IV SCH ×2 (16:34→22:03)
[2024-10-08] MEDS: SODIUM CHLOR 7% 4 ML NEB NEB SCH (19:38)
[2024-10-08 21:35] LABS: Anion Gap 12.0 (3-11); Blood Urea Nitrogen 40.0 mg/dl (6-23); Calcium 8.0 mg/dl (8.6-10.3); Carbon Dioxide 28.0 mmol/L (21-32); Chloride 83.0 mmol/L (98-107); Creatinine Clr Calc Pharmacy 51.1 ml/min; Glucose 98.0 mg/dl (70-99(Fasting)); Potassium 3.2 mmol/L (3.5-5.1); Sodium 123.0 mmol/L (136-145)
[2024-10-09] MEDS: LIDOCAINE 2% JELLY 5 ML TUBE EXT ONE (00:30)
[2024-10-09 04:56] LABS: Hematocrit (blood only) 28.0 % (42.0-52.0); Hemoglobin 10.1 g/dl (14.0-18.0); Immature Granulocytes # (auto) 0.05 K/uL (0.01-0.20); Immature Granulocytes % (auto) 0.7 %; Mean Corpuscular Hemoglobin 28.5 pg (25.0-34.0); Mean Corpuscular Volume 79.1 fL (80.0-100.0); Platelet Count 241 K/uL (130-400); RDW Standard Deviation 40.9 fL (36.4-46.3); Red Blood Count 3.54 M/uL (4.70-6.10); White Blood Count 6.95 K/ul (4.8-10.8)
[2024-10-09 05:19] LABS: Alanine Aminotransferase 57.0 U/L (7-52); Albumin Globulin Ratio 1.1 (0.9-2); Alkaline Phosphatase 84.0 U/L (34-104); Anion Gap 11.0 (3-11); Bilirubin,Total 1.1 mg/dl (0.2-1.0); Blood Urea Nitrogen 36.0 mg/dl (6-23); Calcium 8.1 mg/dl (8.6-10.3); Carbon Dioxide 30.0 mmol/L (21-32); Chloride 85.0 mmol/L (98-107); Creatinine Clr Calc Pharmacy 56.0 ml/min; Globulin 2.8 gm/dl (2.5-4.0); Glucose 99.0 mg/dl (70-99(Fasting)); Magnesium 2.3 mg/dl (1.7-2.4); Potassium 3.3 mmol/L (3.5-5.1); Sodium 126.0 mmol/L (136-145); Total Protein 6.0 gm/dl (6.0-8.3)
--- NOTE | 2024-10-09 07:41 | Critical Care Progress Note ---
Date of Service October 09, 2024 Assessment & Plan (1) Thyroid nodule: (2) Anaplasmosis: (3) Lyme disease: (4) Hyponatremia with decreased serum osmolality: (5) Encephalopathy: Plan Reason Critically Ill: 68 YOM presented encephalopathic, febrile, and hyponatremic at admission. Initial concern for central nervous system infection as well as severe hyponatremia. Pt is awake, alert and cooperative, appearing without neurological changes. Hyponatremia continues gradually improving with aggressive Lasix driven diuresis and fluid restriction. Urine output has significantly increased in the last 12 hours, however, pt continues to hypervolemic. Neuro - Encephalopathy, likely metabolic secondary to hyponatremia - Patient presented with several risks for TIN POT OPERATOR type of infection, however, most testing has returned negative. Pt is now awake and alert. Neurological testing does not reveal deficits at this time. - MRI from 10/06 showed mild chronic ischemic small vessel disease at frontoparietal white matter, no evidence of acute intracranial pathology Cardiac - edema, elevated BNP Pt reporting history of orthopnea for the last couple years at home. He continues with soft, pitting edema at bilateral hands and lower legs/feet as well as firm edema at posterior upper thighs-difficult to ascertain into abdomen or sacral area secondary to body habitus. Pt has put out 10.8L of urine since admission with 8.1L in the last 24 hours. - Reduction in IV Lasix 60mg q8h - ECHO 10/06 shows LEF of 50-55%, borderline global hypokinesis of LV, dilated IVC with reduced collapsibility- indicating elevated R atrial pressure - Pt converted to sinus rhythm 10/08 in afternoon. Likely has paroxysmal a-fib, unsure if pt has had prior episodes due to lack of medical follow up. Pt refusing anticoagulation for prevention of stroke at this time. Respiratory - concern for pneumonia Repeat CXR this morning shows significant improvement in pulmonary edema. Cannot rule out pneumonia. Will continue with abx to cover atypical pneumonia - Continue Azithromycin and doxycycline, transition to po - legionella urine pending - strep pneumo pending GI - Pt is tolerating regular diet. - ST eval completed following extubation yesterday. Appreciate recommendations: 1500mL fluid restriction Advance diet as tolerated Alt solid/liquids, supervise meals, fully alert/upright Mouth care 2x daily WEB UI DEVELOPER to f/u on 10/09 to reassess - DC pantoprazole as pt is on regular diet - Hold bowel regimen and ordered KUB due to loose, frequent stools. Assess for overflow diarrhea RENAL/LYTES - Severe hyponatremia due to hypoosmolar hypervolemia secondary to HF vs exacerbation from infection - Cr is 1.88, eGFR is 36.0 - Na is 126 this morning, gradually improving - Continue diurese with reduction in IV lasix - Potassium replaced - Monitor I/Os - Enlarged prostate seen on CT ab/pel - UA/culture is negative - continue with villalta while on high doses of lasix and limited mobility, then consider trial voiding ENDO - abnormal TSH, thyroid nodule - No acute concerns - can likely proceed with outpatient workup when stable MSK- General weakness and debility due to recent AMS with sedation and intubation. Pt reports hx of bilateral knee pain. - Ordered PT/OT evals for initiation for mobility and functional rehab as well as recommendations for assistance needed at hospital DC HEME - No acute needs ID - - Continue Doxycycline for 10-14 days to cover positive lyme and anaplasmosis - Continue Azithromycin to cover for atypical pneumonia LINES/IV ACCESS - CVL, PIV, Villalta Continue use of these lines DVT PROPHYLAXIS - SCDS, Heparin sq DISPO: Pt stable to down grade to medical floor Admission and Anticipated Discharge Date Admission Date: October 06, 2024 Supervising Physician Co-Signing Physician Notes Patient is a 69-year-old male with no known past medical history. The patient does not follow with any healthcare providers for many years. The patient presented to the hospital 10/05/2024 due to altered mental status and muscle weakness and poor motor function. On arrival to [facility] the patient was encephalopathic and hypoxic. Labs were significant for hyponatremia at 113, elevated BNP and elevated D-dimer. The patient was administered 2 L of normal saline as well as 2 A of bicarb. Imaging showed no acute intracranial process, CT of the chest did not show evidence of large PE however it was a poorly timed contrast study, and CT abdomen pelvis did not show acute process. The patient was then transferred to [facility]. On arrival his sodium had increased to 118. He was noted to be grossly volume overloaded. The patient was not following commands. Family (2 sons, Obinna and Shivam and daughter Ila) were included in a discussion and they agreed to intubating the patient to allow for LP. They did note however that he would not want to be on a ventilator. The patient underwent lumbar puncture, this was a bloody tap however and difficult due to body habitus. Serology showed Lyme antibody is positive on 10/05/2024 and intracytoplasmic neutrophil inclusions noted on Anaplasma smear 10/05/2024. The patient was noted to be febrile on admission however this has since resolved. He was placed on antiviral/antimicrobial medications to cover for TIN POT OPERATOR infection including Rocephin, azithromycin (to cover for Legionella which is pending), doxycycline, acyclovir, ampicillin and vancomycin. Infectious disease consult was placed. Sodium was monitored, has fluctuated around 118 without much improvement. The patient was grossly volume overloaded, an echocardiogram was obtained which showed preserved ejection fraction with an EF of 50 to 55%, moderate concentric LVH and borderline global hypokinesis. Cardiology was consulted. The patient was started on diuretics overnight on 10/06/2024. Repeat lumbar puncture was performed on 10/07/2024 with a clear tap with low WBCs that were 21% leukocytes, normal glucose, slightly elevated protein and negative PCR. Infectious disease was consulted and recommended continuing only doxycycline to cover for the anaplasmosis. The patient had increasing creatinine and low urine output, he was started on aggressive diuresis and nephrology was consulted. They agreed with aggressive diuresis and believe that his renal dysfunction was likely ATN. The patient was successfully extubated to nasal cannula on 10/08/2024. He responded well to diuresis and had large amounts of urine output overnight with improvement in his respiratory status and imaging findings. The patient had been in atrial fibrillation/flutter however he converted to sinus rhythm and has been in sinus rhythm for the past 24 hours. He was offered anticoagulation for intermittent A-fib/flutter however he declined this therapy. Renal function is improving. Sodium has increased with diuresis to 126. Overall his clinical condition has improved significantly and he is stable to be downgraded out of the ICU. Reason Critically Ill: Altered mental status, metabolic encephalopathy in setting of severe hyponatremia, improved Hypervolemic hyponatremia, improved Acute kidney injury likely secondary to ATN, improving Hypoxic respiratory failure secondary to pulmonary edema and CAP, extubated 10/08/2024 to nasal cannula, now weaned to room air Lyme antibody detected Anaplasmosis smear positive for inclusion bodies Heart failure with preserved ejection fraction Massive volume overload with pulmonary edema and pleural effusions New onset diabetes mellitus type 2 Atrial Flutter/fibrillation, converted to sinus rhythm now Neuro: Metabolic encephalopathy secondary to severe hyponatremia 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 Patient is awake and alert. Seems appropriate and able to make his own decisions. -Sodium continues to correct with diuresis. Can be checked daily with morning labs. Was 126 this morning. Very unlikely that he will overcorrect at this point. -LP 10/07/2024 showing clear colorless CSF with low WBCs and normal glucose. PCR was negative. Please follow-up with the Lyme antibodies and final cultures. Cardiac: Heart failure with preserved ejection fraction with acute exacerbation, echocardiogram showing EF of 55% however there is hypokinesis as well as LVH. Atrial fibrillation/flutter, now converted to sinus rhythm -Continue aggressive diuresis for volume overload. -[id number] is 3-4, risk of CVA 3.2 to 4.8 %/year. Offered systemic anticoagulation however he declined this. -Has not required rate control for his arrhythmia. -Patient does endorse alcohol intake however denies heavy alcohol intake, we started thiamine prophylactically and will continue this. Respiratory: Acute hypoxic respiratory failure in setting of pulmonary edema and CAP, intubated from 10/06/2024 to 10/08/2024. Pulmonary edema with pleural effusion Status post bronchoscopy 10/05/2024, right middle lobe BAL negative. Likely underlying OHS/ANA with morbid obesity - Patient has been weaned down to nasal cannula. - Oxygenation is improving with diuresis. - On azithromycin, Legionella urine antigen is still pending, did have infiltrate on x-ray. Please continue azithromycin for a total of 10 days, can stop early if Legionella returns before that time and is negative. - Continue pulmonary toilet with incentive spirometer, Acapella, bronchodilators with saline nebulizers. - Patient likely has underlying sleep apnea versus pickwickian syndrome. Tends to sleep sitting up in a chair. This needs to be followed up in the outpatient setting. May require nocturnal oxygen if he desaturates. GI: Speech is consulted. Patient is having a full liquid diet, 1.5 L fluid restriction. Patient having some diarrhea, KUB with minimal stool burden. MiraLAX was discontinued. Likely has a component of PINEDA with increased echogenicity of the liver on imaging. Denies heavy alcohol use in his history. RENAL/LYTES: Hypervolemic hyponatremia. Acute kidney injury likely secondary to ATN. -Continue to monitor labs daily, sodium is improving well with diuresis. -Patient still needs aggressive diuresis, his Lasix have been decreased to 60 mg IV every 8 hours. Please ensure that he at least has 4-1/2 L out daily and a net negative fluid balance. -Nephrology is following along, please follow their recommendations. : Villalta catheter in place. Recommend keeping in place for now for patient comfort care-aggressive diuresis. ENDO: New onset diabetes mellitus type 2, A1c 6.5%. -Blood glucose has been well-controlled. Has not required insulin at this time. HEME: CBC acceptable at this time. Had mild lymphopenia that has improved. Monitor with daily labs. ID: Anaplasmosis, neutrophilic inclusion bodies detected on anaplasmosis smear 10/05/2024 Lyme antibody detected 10/05/2024. Community-acquired pneumonia Infectious workup included LP which was grossly normal with only slightly elevated protein and negative PCR. Negative BAL from bronchoscopy. MRSA nares was negative. Urine culture was negative. Blood cultures were negative. Lyme antibody detected from serum as well as anaplasmosis also detected on admission. -Please follow final results from CSF including West Nile and Lyme antibodies which are pending and final culture. -Please follow Legionella urine antigen. -Infectious disease has signed off. -Please continue doxycycline for anaplasmosis and possible Lyme, we are planning to treat anaplasmosis for a total of 14 days with an end date of 10/19/2024. -Please continue azithromycin, Legionella urine antigen is pending. Can continue for 10 days total, can discontinue azithromycin earlier if Legionella returns negative. Prophylaxis VTE: Heparin subcu. Patient does not want systemic anticoagulation for atrial flutter. GI: Diet Lines: IJ CVC, will be removed prior to leaving ICU, peripheral IV present. Diet: Passed swallow evaluation, full liquid diet with 1.5 L fluid restriction. Code: DNI (conditional code), CPR was discussed with patient today, he would like to speak with his family before he makes any further decision on CODE STATUS. Plan: Patient is stable to be transferred out of the ICU today. Continue antibiotics as described above. Continue aggressive diuresis as described above. Physical therapy Occupational Therapy been consulted. Dr. Frost was the resident-physician during care of patient. I separately evaluated patient for cantrell portions of the history and the exam. I was present during the critical portion of medical decision making, and I discussed the case with the resident. I generally agree with the findings and plan except for any additions/exceptions noted. I have personally spent 30 minutes of critical care time in the direct management of this patient. This is a life/limb threatening event. This includes time spent evaluating patient, direct bedside care, chart review, placing orders, interpretation of diagnostic studies, discussion with consultants, patient, and family members, as well as other required patient management activities. This time is exclusive of all separately billable procedures, and teaching time and separate from and in addition to any other critical care service time. Subjective No acute events over night. This morning, pt reports he had difficulty sleeping last night and feels SOB this morning. Pt states that he has difficulty sleeping at home as well and sleeps in a recliner due to difficulty breathing when he lays in a bed. Pt states he has a history of bilateral knee pain and he is hard of hearing. Pt reports occasionally smoking a pipe or cigar, but does not in landry. He also states he drink 1 beer per day. Pt denies chest pain, headache, dizziness, abdominal pain, nausea, vomiting. He endorses blurry vision, numbness in hands/feet Review of Systems Review of Systems: As per HPI Physical Exam Physical Exam: Gen: Awake and alert, pt is cooperative. Pt is hard of hearing HENT: Normocephalic, atraumatic. External ear without deformities. Trachea midline, no thyromegaly Cardio: RRR, no murmurs or clicks. 2+ distal pulses. 1-2+ edema at bilateral hands and feet. Firm bilateral upper/posterior thigh edema Resp: 2L O2 via NC, mild increased work of breathing, fine crackles at bilateral lung bases GI: Obese, but nondistended, soft abdomen, normoactive bowel sounds in all 4 quadrants : Villalta in place, yellow urine MSK: Moving all 4 extremities independently Skin: Dry, scaling skin at bilateral lower legs and feet, Excoriated skin at bilateral upper arms and anterior chest, open lesions at right upper arm Neuro: A & O x 3, CN II-VII in tact, 3+/5 strength grossly at bilateral UE's/LE's Results & Data Results & Data Vital Signs (Past 12 Hours) Vital Signs Temp Pulse Pulse Resp BP Pulse Ox O2 Del Method 10/09/24 07:15 74 20 94 Nasal Cannula 10/09/24 06:06 75 16 140/63 95 Nasal Cannula 10/09/24 05:00 74 25 H 140/63 96 Nasal Cannula 10/09/24 04:09 76 25 H 149/69 H 95 Nasal Cannula 10/09/24 03:00 75 15 136/72 96 Nasal Cannula 10/09/24 02:00 76 17 147/68 H 93 Nasal Cannula 10/09/24 00:06 36.7 C 78 24 117/72 95 Nasal Cannula 10/09/24 00:00 75 10/08/24 23:03 77 19 139/75 93 Nasal Cannula 10/08/24 22:03 82 22 135/66 95 Nasal Cannula 10/08/24 21:39 81 23 139/83 94 Nasal Cannula 10/08/24 20:48 Nasal Cannula 10/08/24 20:30 82 24 95 10/08/24 20:09 82 20 129/82 96 Nasal Cannula 10/08/24 19:45 78 19 95 Nasal Cannula 10/08/24 19:44 78 18 155/83 H 97 Nasal Cannula O2 Flow Rate 10/09/24 07:15 2 10/09/24 06:06 2 10/09/24 05:00 2 10/09/24 04:09 2 10/09/24 03:00 2 10/09/24 02:00 2 10/09/24 00:06 2 10/09/24 00:00 10/08/24 23:03 2 10/08/24 22:03 2 10/08/24 21:39 2 10/08/24 20:48 2 10/08/24 20:30 10/08/24 20:09 2 10/08/24 19:45 2 10/08/24 19:44 2 Resident Activity Tracking Resident Involvement: Resident Care Provided Care Provided: Adult Hospital Medicine
[2024-10-09] MEDS: POTASSIUM CHLORIDE / WTR 20 MEQ/100 ML PLCT IV SCH (07:52)
--- NOTE | 2024-10-09 07:54 | XRay Report ---
EXAM: XR chest 1V portable CLINICAL HISTORY: f/u, post extubation, pna, pulmonary edema TECHNIQUE: An X-ray image of the chest is obtained in AP projection. COMPARISON: Chest X-ray 10-06-2024. FINDINGS: The ETT tube is removed in today's study. The right central venous line is noted. The tip seen at the cavoatrial junction. Unchanged. Pulmonary Parenchyma: Interval mild improvement of the previously seen right mid and lower zone, and left lower zone opacities. Stable appearance of blunting of both costophrenic angles, more on the left side Heart and Mediastinum: Heart size and shape are normal. No mediastinal widening or masses. No hilar or mediastinal lymphadenopathy. Bony Thorax: Bony thorax appears intact without fractures or deformities. Soft Tissues: Soft tissues overlying the chest wall are unremarkable. IMPRESSION: 1. Endotracheal tube removed. 2. Interval mild improvement of the right mid and lower zone, and left lower zone opacities. 3. The right central venous line is noted in situ. Unchanged. 4. Stable mild bilateral pleural effusion/thickening, more on the left side. 5. Otherwise, no significant interval changes. Electronically signed by Isaiah Yanes 10-09-2024 07:54 AM
[2024-10-09] MEDS: FUROSEMIDE 40 MG/4 ML VIAL IV SCH (08:59)
--- NOTE | 2024-10-09 09:44 | Nephrology Progress Note ---
Date of Service October 09, 2024 Assessment & Plan Admission and Anticipated Discharge Date Admission Date: October 06, 2024 Subjective Assessment & Plan (1) Hyponatremia: severe hyponatremia with a serum sodium of 118. despite IV fluid initially and currently Lasix sodium has not really moved much and ranges anywhere from 116- 119 for the last 2 days. we do not have prior blood work to compare so not possible to know how much of this is acute drop versus chronic hyponatremia. he was not on any medications to cause hyponatremia as he was not taking any medications. it is also not clear how much alcohol he was drinking. As per the H and P and sisters account he did drink beer but not clear how many and how often. imaging so far is consistent with possible cirrhosis which could be related with alcohol intake versus PINEDA. He has findings suggestive of volume overload. He has started to make urine increasing amount . given this will recommend to continue the Lasix 100 mg every 8 hours and will give with 25 % albumin every 8 hours. given severe hyponatremia would like to avoid using metolazone or Aldactone for now. not advisable to use urea given liver issues and not advisable to use salt tablet given volume overload and high blood pressure. my working diagnosis is patient has chronic hyponatremia but since he developed ATN with oliguria the hyponatremia got significantly worse. he likely developed ATN in the setting of infection and new onset AFib. Finally massive diuresis from ysterday with 8000 ml + urine and now Na is rising and up to 126. K is low. Can lower lasix to 60 iv q8hr. but we have to insure that he still gets good diuresis 4500 ml + urine per day. Can Stop Albumin now (2) Encephalopathy: he was significantly confusion admission and currently is intubated for airway protection in his sedated. unclear etiology of encephalopathy. will follow (3) JAREN (acute kidney injury): on admission he had normal creatinine of 0.8 but it has since then gone up steadily and peaked at 2.44 but since then has dropped a little bit. essentially doubling of creatinine from baseline.this AM is 1.88. this would qualify as acute kidney injury. his urine sediment is very active with lots of epithelial cells hyaline casts so consistent with possible ATN. my working diagnosis is patient has chronic hyponatremia but since he developed ATN with oliguria the hyponatremia got significantly worse. S--Started to make much more urine. Now extubated. family at bedside. Overall much better. physical examination elderly white male who appears to be very disheveled and unkempt. now extubated mucous membrane is moist. Neck is supple no JVD chest bilateral decreased breath sound with ventilator conductive sound CVS S1 and S2 tachycardic distant heart sounds abdomen is distended and obese extremities--- bilateral 1+ edema with chronic skin changes as well as very unkempt skin Results & Data Vital Signs (Past 12 Hours) Vital Signs Temp Pulse Pulse Resp BP Pulse Ox O2 Del Method 10/09/24 09:24 77 27 H 95 10/09/24 08:39 146/74 H 10/09/24 08:30 80 17 94 Room Air 10/09/24 08:29 37 C 10/09/24 08:15 74 25 H 93 10/09/24 08:00 74 10/09/24 07:39 155/76 H 10/09/24 07:30 77 18 96 10/09/24 07:15 74 20 94 Nasal Cannula 10/09/24 07:09 74 22 97 Nasal Cannula 10/09/24 06:39 144/77 H 10/09/24 06:36 69 13 10/09/24 06:06 75 16 140/63 95 Nasal Cannula 10/09/24 05:00 74 25 H 140/63 96 Nasal Cannula 10/09/24 04:09 76 25 H 149/69 H 95 Nasal Cannula 10/09/24 03:00 75 15 136/72 96 Nasal Cannula 10/09/24 02:00 76 17 147/68 H 93 Nasal Cannula 10/09/24 00:06 36.7 C 78 24 117/72 95 Nasal Cannula 10/09/24 00:00 75 10/08/24 23:03 77 19 139/75 93 Nasal Cannula 10/08/24 22:03 82 22 135/66 95 Nasal Cannula O2 Flow Rate 10/09/24 09:24 10/09/24 08:39 10/09/24 08:30 10/09/24 08:29 10/09/24 08:15 10/09/24 08:00 10/09/24 07:39 10/09/24 07:30 10/09/24 07:15 2 10/09/24 07:09 2 10/09/24 06:39 10/09/24 06:36 10/09/24 06:06 2 10/09/24 05:00 2 10/09/24 04:09 2 10/09/24 03:00 2 10/09/24 02:00 2 10/09/24 00:06 2 10/09/24 00:00 10/08/24 23:03 2 10/08/24 22:03 2
--- NOTE | 2024-10-09 10:23 | XRay Report ---
KUB HISTORY: Stool burden COMPARISON STUDY: None FINDINGS: There is mild retained stool. No bowel obstruction seen. No gross free air. IMPRESSION: Mild retained stool. ACT 112: Negative or not required by law. The above report was generated using voice recognition software. It may contain grammatical, syntax o r spelling errors. Electronically signed by: Colt Haro M.D. 10/09/2024 10:22 AM
--- NOTE | 2024-10-09 10:53 | Cardiology Progress Note ---
Date of Service October 09, 2024 Assessment & Plan (1) Atrial fibrillation: (2) JAREN (acute kidney injury): (3) Hyponatremia: Plan Telemetry reviewed. Patient converted back to sinus rhythm on 10/08/2024, 1305 and has been in sinus rhythm in 70s in the interim. His mental status has improved. He was found to be both IgG and IgM positive for Lyme and his anaplasmosis peripheral smear was notable for inclusion bodies. He is currently on doxycycline and azithromycin. Continue furosemide 60 mg IV every 8 hours, for volume overload with heart failure with preserved ejection fraction, hyponatremia. Sodium improving. Carey catheter remains in place. The patient had been in a rate controlled atrial fibrillation on presentation to the hospital, duration unknown. He tells me that his preference is to be on no medications or his few medications as possible. I have the impression that adherence will be an ongoing issue. At this time, I believe it is most prudent to proceed without systemic anticoagulation such as warfarin or direct oral anticoagulant as patient has not inclined to take it, and I am concerned about the risks of him taking anticoagulation correctly to be higher than him not being on it at all. Continue subcutaneous heparin for DVT prophylaxis. I spent a total of 50 minutes on the date of service in preparation, delivery, and documentation of the care provided to this patient, excluding any time spent in the performance of separately billed services. Jessica Roland DO Admission and Anticipated Discharge Date Admission Date: October 06, 2024 Subjective Patient seen in cardiology follow up. Sitting upright in bedside chair. Notes breathing is stable, but describes some degree of chronic shortness of breath. Physical Exam Physical Exam: Temp Pulse Resp BP Pulse Ox O2 Del Method O2 Flow Rate 37 C 76 17 152/68 H 91 Room Air 2 10/09/24 08:29 10/09/24 10:11 10/09/24 10:11 10/09/24 09:39 10/09/24 10:11 10/09/24 10:11 10/09/24 07:15 FiO2 30 10/08/24 07:30 Constitutional: + ill appearing (chronically ill in appe arance , with no acute distress ) and + morbidly obese Respiratory: Auscultation: + diminished lung sounds (decreased BS at the based bilaterally ); no crackles and no wheezes Cardiovascular: Rate/Rhythm: regular rate and regular rhythm Heart Sounds: no murmur Extremities: + edema (2-3+ bilateral LE edema ) Neurologic: conversant. Moves all 4 extremities Results & Data Laboratory Results Cardiac Enzymes 10/09/24 Range/Units 04:34 AST 79 H (13-39) U/L CBC 10/09/24 Range/Units 04:34 WBC 6.95 (4.8-10.8) K/ul RBC 3.54 L (4.70-6.10) M/uL Hgb 10.1 L (14.0-18.0) g/dl Hct 28.0 L (42.0-52.0) % Plt Count 241 (130-400) K/uL Neut # (Auto) 4.16 (1.40-6.50) K/uL Lymph # (Auto) 2.16 (1.20-3.40) K/uL [place] # (Auto) 0.48 (0.11-0.59) K/uL Eos # (Auto) 0.08 (0.00-0.50) K/uL Baso # (Auto) 0.02 (0.00-0.20) K/uL Comprehensive Metabolic Panel 10/08/24 10/09/24 Range/Units 20:29 04:34 Sodium 123 L 126 L (136-145) mmol/L Potassium 3.2 L 3.3 L (3.5-5.1) mmol/L Chloride 83 L 85 L (98-107) mmol/L Carbon Dioxide 28 30 (21-32) mmol/L BUN 40 H 36 H (6-23) mg/dl Creatinine 2.06 H 1.88 H (0.6-1.4) mg/dl Glucose 98 99 (70-99(Fasting)) mg/dl Calcium 8.0 L 8.1 L (8.6-10.3) mg/dl AST 79 H (13-39) U/L ALT 57 H (7-52) U/L Alkaline Phosphatase 84 (34-104) U/L Total Protein 6.0 (6.0-8.3) gm/dl Albumin 3.2 L (3.4-5.0) gm/dl Intake and Output 10/08/24 10/09/24 10/09/24 22:59 06:59 14:59 Intake Total 1280.041 / 3051.776 836.667 / 3051.776 653.333 / 653.333 Output Total 3102 / 8127 3375 / 8127 1650 / 1650 Balance -1821.959 / -5075.224 -2538.333 / -5075.224 -996.667 / -996.667 Intake: IV 555.041 / 1551.776 486.667 / 1551.776 353.333 / 353.333 Acetaminophen 1,000 mg In 100 100 / 100 ml @ 400 mls/hr IV Q8H PRN Rx#: [id number] Albumin 25% 25 gm In 100 ml @ 100 / 300 100 / 300 50 mls/hr IV Q8H [facility] Rx#: [id number] Azithromycin 500 mg In 255 ml @ 255 / 255 127.5 mls/hr IV Q24H [facility] Rx#: [id number] Doxycycline Hyclate 100 mg In 100 / 200 100 / 200 Dextrose 5% Mini-B 100 ml @ 50 mls/hr IV Q12H [facility] Rx#:[id number] Potassium Chloride / Wtr 20 meq 200 / 486.667 286.667 / 486.667 98.333 / 98.333 In 100 ml @ 50 mls/hr IV Q2H [facility] Rx#:[id number] dexMEDEtomidine 200 mcg In 50 25.56 / 70.367 ml @ 0 MCG/KG/HR IV .Q0M [facility] Rx #:[id number] propofoL 1,000 mg In 100 ml @ 0 29.481 / 43.867 MCG/KG/MIN IV .Q0M [place] Rx#: [id number] Oral 725 / 1500 350 / 1500 300 / 300 Output: Urine Amount (Catheter) 3100 / 8125 3375 / 8125 1650 / 1650 Carey/Indwelling 3100 / 8125 3375 / 8125 1650 / 1650 # Bowel Movements 2 / 2 Other: Weight 150.9 kg Weight Measurement Method Built in [facility] Coding [place] [address] SUB INP/OBS CARE 3/50MIN Patient Type Established History Comprehensive Exam Comprehensive Medical Decision Making High Complexity Diagnoses Atrial fibrillation I48.91 JAREN (acute kidney injury) N17.9 Hyponatremia E87.1
--- NOTE | 2024-10-09 11:08 | Billing Data ---
Date of Service October 09, 2024 Coding Level of Care Code 71938 CRITICAL CARE
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
[2024-10-09] MEDS: DOXYCYCLINE HYCLATE 100 MG CAP PO SCH (20:44)
[2024-10-09] MEDS: MELATONIN 3 MG TAB PO PRN (20:49)
[2024-10-10 06:55] LABS: Anion Gap 11.0 (3-11); Blood Urea Nitrogen 32.0 mg/dl (6-23); Calcium 8.7 mg/dl (8.6-10.3); Carbon Dioxide 33.0 mmol/L (21-32); Chloride 89.0 mmol/L (98-107); Creatinine Clr Calc Pharmacy 62.7 ml/min; Glucose 106.0 mg/dl (70-99(Fasting)); Magnesium 2.4 mg/dl (1.7-2.4); Potassium 3.7 mmol/L (3.5-5.1); Sodium 133.0 mmol/L (136-145)
[2024-10-10] MEDS: AZITHROMYCIN 250 MG TAB PO SCH (09:20)
[2024-10-10] MEDS: THIAMINE HCL 100 MG TAB PO SCH (09:21)
--- NOTE | 2024-10-10 09:29 | Nephrology Progress Note ---
Date of Service October 10, 2024 Assessment & Plan Admission and Anticipated Discharge Date Admission Date: October 06, 2024 Subjective Assessment & Plan (1) Hyponatremia: severe hyponatremia with a serum sodium of 118. despite IV fluid initially and currently Lasix sodium has not really moved much and ranges anywhere from 116- 119 for the last 2 days. we do not have prior blood work to compare so not possible to know how much of this is acute drop versus chronic hyponatremia. he was not on any medications to cause hyponatremia as he was not taking any medications. it is also not clear how much alcohol he was drinking. As per the H and P and sisters account he did drink beer but not clear how many and how often. imaging so far is consistent with possible cirrhosis which could be related with alcohol intake versus PINEDA. He has findings suggestive of volume overload. He has started to make urine increasing amount . given this will recommend to continue the Lasix 60 mg every 8 hours . he likely developed ATN in the setting of infection and new onset AFib. had massive diuresis from yesterday with 7000 ml + urine and now Na is rising and up to 133. continue lasix to 60 iv q8hr. Urine will slow down once the extra volume is gone. (2) Encephalopathy: he was significantly confusion admission and currently is intubated for airway protection in his sedated. unclear etiology of encephalopathy. will follow (3) JAREN (acute kidney injury): on admission he had normal creatinine of 0.8 but it has since then gone up steadily and peaked at 2.44 but since then has dropped a little bit. essentially doubling of creatinine from baseline.this AM is 1.88. this would qualify as acute kidney injury. his urine sediment is very active with lots of epithelial cells hyaline casts so consistent with possible ATN. S--Started to make much more urine. Now out of ICU physical examination elderly white male who appears to be very disheveled and unkempt. now extubated mucous membrane is moist. Neck is supple no JVD chest bilateral decreased breath sound with ventilator conductive sound CVS S1 and S2 tachycardic distant heart sounds abdomen is distended and obese extremities--- bilateral 1+ edema with chronic skin changes as well as very unkempt skin Results & Data Vital Signs (Past 12 Hours) Vital Signs Temp Pulse Pulse Resp BP Pulse Ox O2 Del Method 10/10/24 08:00 36.7 C 63 18 144/76 H 96 Room Air 10/10/24 07:03 70 10/10/24 06:17 69 18 97 Nasal Cannula 10/10/24 03:14 36.6 C 69 18 125/74 98 Nasal Cannula 10/10/24 00:00 68 10/09/24 23:24 36.3 C L 71 20 126/73 93 Nasal Cannula O2 Flow Rate 10/10/24 08:00 10/10/24 07:03 10/10/24 06:17 2 10/10/24 03:14 2 10/10/24 00:00 10/09/24 23:24 2
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
[2024-10-10] MEDS: POTASSIUM CHLORIDE CRTAB 20 MEQ TABCR PO STA (12:17)
--- NOTE | 2024-10-10 14:48 | Hospitalist Progress Note ---
Date of Service October 10, 2024 Assessment & Plan (1) JAREN (acute kidney injury): (2) Hyponatremia: (3) Atrial fibrillation: (4) Encephalopathy: (5) Anaplasmosis: (6) Lyme disease: (7) Cirrhosis: Plan 68-year-old male with HTN, tobacco use presenting as transfer from OSH for critical care in setting of critical hyponatremia. 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 Mild chronic ischemic small vessel disease and mild age-related brain changes. Bilateral mild maxillary sinusitis. --S/P lumbar puncture --CSF studies fungal culture, CSF for RPR, Lyme, Borrelia, West Nile pending -Blood cultures negative to date --S/P Extubation on 10/08/24 --patient empirically treated with ampicillin, acyclovir, azithromycin, Rocephin, doxycycline and vancomycin --Currently on azithromycin, doxycycline -- Delirium precautions Mental status seem to be back to baseline Acute Renal Failure likely ATN Hypervolemic Hypoosmolar Hyponatremia Left renal cyst: Incidental finding on imaging Hypokalemia Suspected chronic hyponatremia --Renal US:Left renal cyst. Otherwise unremarkable renal sonogram --Cr: 1.88 today -- Sodium levels improved to 133 today --Continue IV Lasix as recommended by nephrology --Appreciate nephrology input --Monitor sodium level, renal function, urine output closely --Replace electrolytes as needed Diuresing well, renal function much improved Atrial Fibrillation HTN --ECHO: Left ventricle is normal in size. Moderate concentric LVH. Borderline global hypokinesis of left ventricle. EF 50 to 55%. Left atrium is mildly dilated. No significant valvular disease. -- Rate is controlled Monitor off AV eugenio blockers Long-term systemic anticoagulation risk versus benefits to be determined Appreciate cardiology input Replace electrolytes as needed Acute Hypoxic Respiratory Failure CAP Pulmonary Edema Tobacco Use Disorder Suspected ANA, obesity hypoventilation, pickwickian syndrome --S/P bronchoscopy on 10/05/2024 --Elevated procalcitonin --Bronchoscopy negative for infection --Bronchial cultures negative --Urine for Legionella pending -likely element of ANA as well --Continue IV diuresis per nephrology --Continue azithromycin, also on doxycycline --Other empiric antibiotics discontinued --Will need sleep study as outpatient Likely Cirrhosis Liver cyst -patient has likely cirrhosis Possible hepatorenal syndrome ? Alcohol use --Liver USD:The liver is enlarged and of increased echogenicity which may be due to fatty infiltration and/or hepatocellular disease. There is a 2.7 cm cyst noted in the right lobe of the liver. -- Portal vein ultrasound:The hepatic vessels are all patent. 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 --CSF studies pending --Continue doxycycline -Appreciate ID input Morbid obesity BMI 46 Thyroid nodule Decreased TSH, normal free T4 -Will need further workup as outpatient -Antithyroid antibody pending DM II HbA1c 6.5 Consider adding insulin if needed Will consult ancillary specialist when appropriate BPH PSA 4.5 Needs follow-up as outpatient DVT Px: Heparin SQ CODE STATUS DNI DNR as discussed with patient at bedside in detail today Disposition PT OT recommends SNF Admission and Anticipated Discharge Date Admission Date: October 06, 2024 Subjective Patient is seen and examined at bedside Sitting in chair comfortably during my encounter Offers no new complaints today Diuresing well with IV Lasix In sinus rhythm today Patient denies any chest pain, headache, dizziness, abdominal pain Review of Systems Review of Systems: All systems reviewed & are unremarkable except as noted in Subjective Physical Exam Physical Exam: Physical Exam: Vitals signs as noted above General Appearance:Morbidly Obese, no apparent distress Head: normocephalic, Atraumatic Eyes: normal inspection, EOMI Neck: supple, Trachea midline Respiratory/Chest: Normal breath sounds, minimal crackles, No accessory muscle use Cardiovascular: S1, S2, No murmur Abdomen/GI:Soft, Non tender, + protuberant, bowel sounds present Extremities/Musculoskeletal:normal inspection, B/L LE edema,+ chronic venous stasis changes Neurologic/Psych: Alert, awake, oriented to person, place, grossly moves all extremities, + decreased hearing Skin: normal color, warm, UE wound Results & Data Results & Data Vital Signs (Past 12 Hours) Vital Signs Temp Pulse Pulse Resp BP Pulse Ox O2 Del Method 10/10/24 14:19 72 18 94 Room Air 10/10/24 09:31 Nasal Cannula 10/10/24 08:00 36.7 C 63 18 144/76 H 96 Room Air 10/10/24 07:03 70 10/10/24 06:17 69 18 97 Nasal Cannula 10/10/24 03:14 36.6 C 69 18 125/74 98 Nasal Cannula O2 Flow Rate 10/10/24 14:19 10/10/24 09:31 2 10/10/24 08:00 10/10/24 07:03 10/10/24 06:17 2 10/10/24 03:14 2 Laboratory Results [facility] 10/10/24 05:33 Sodium 133 L Potassium 3.7 Chloride 89 L Carbon Dioxide 33 H BUN 32 H Creatinine 1.60 H Glucose 106 H Calcium 8.7
[2024-10-11 06:10] LABS: Hematocrit (blood only) 34.1 % (42.0-52.0); Hemoglobin 11.5 g/dl (14.0-18.0); Mean Corpuscular Hemoglobin 27.7 pg (25.0-34.0); Mean Corpuscular Volume 82.2 fL (80.0-100.0); Platelet Count 363 K/uL (130-400); RDW Standard Deviation 44.8 fL (36.4-46.3); Red Blood Count 4.15 M/uL (4.70-6.10); White Blood Count 7.52 K/ul (4.8-10.8)
[2024-10-11 06:32] LABS: Anion Gap 8.0 (3-11); Blood Urea Nitrogen 39.0 mg/dl (6-23); Calcium 8.7 mg/dl (8.6-10.3); Carbon Dioxide 35.0 mmol/L (21-32); Chloride 90.0 mmol/L (98-107); Creatinine Clr Calc Pharmacy 66.4 ml/min; Glucose 109.0 mg/dl (70-99(Fasting)); Potassium 3.8 mmol/L (3.5-5.1); Sodium 133.0 mmol/L (136-145)
--- NOTE | 2024-10-11 09:32 | Nephrology Progress Note ---
Date of Service October 11, 2024 Assessment & Plan Admission and Anticipated Discharge Date Admission Date: October 06, 2024 Subjective Assessment & Plan (1) Hyponatremia: severe hyponatremia with a serum sodium of 118. despite IV fluid initially and currently Lasix sodium has not really moved much and ranges anywhere from 116- 119 for the last 2 days. we do not have prior blood work to compare so not possible to know how much of this is acute drop versus chronic hyponatremia. he was not on any medications to cause hyponatremia as he was not taking any medications. it is also not clear how much alcohol he was drinking. As per the H and P and sisters account he did drink beer but not clear how many and how often. imaging so far is consistent with possible cirrhosis which could be related with alcohol intake versus PINEDA. He still has findings suggestive of volume overload. He has started to make urine increasing amount . given this will recommend to continue the Lasix 60 mg every 8 hours he likely developed ATN in the setting of infection and new onset AFib. had a lot of urine 4400 ml. now Na is rising and up to 133. continue lasix 60 iv q8hr. Urine output will slow down once the extra volume is gone. better to fully Diurese him while in hospital as unlikely he will take any meds at home (2) Encephalopathy: he was significantly confusion admission and currently is intubated for airway protection in his sedated. unclear etiology of encephalopathy. will follow (3) JAREN (acute kidney injury): on admission he had normal creatinine of 0.8 but it has since then gone up steadily and peaked at 2.44 but since then has dropped a little bit. essentially doubling of creatinine from baseline. this AM is 1.48 so much better. this would qualify as acute kidney injury. his urine sediment is very active with lots of epithelial cells hyaline casts so consistent with possible ATN. S--Started to make much more urine. overall better. physical examination elderly white male who appears to be very disheveled and unkempt. now extubated mucous membrane is moist. Neck is supple no JVD chest bilateral decreased breath sound with ventilator conductive sound CVS S1 and S2 tachycardic distant heart sounds abdomen is distended and obese extremities--- bilateral trace edema with chronic skin changes as well as very unkempt skin Results & Data Vital Signs (Past 12 Hours) Vital Signs Temp Pulse Pulse Resp BP BP Pulse Ox 10/11/24 07:38 36.6 C 72 20 136/67 91 10/11/24 06:55 66 15 95 10/11/24 03:40 36.6 C 64 22 141/85 H 94 10/11/24 00:00 72 10/10/24 23:38 36.4 C 67 18 130/71 93 10/10/24 21:50 O2 Del Method O2 Flow Rate FiO2 10/11/24 07:38 Room Air 10/11/24 06:55 Room Air 21 10/11/24 03:40 Room Air 10/11/24 00:00 10/10/24 23:38 Room Air 10/10/24 21:50 Nasal Cannula 2
--- NOTE | 2024-10-11 10:54 | Cardiology Progress Note ---
Date of Service October 11, 2024 Assessment & Plan (1) Atrial fibrillation: (2) JAREN (acute kidney injury): (3) Hyponatremia: Plan Telemetry reviewed. Patient converted back to sinus rhythm on 10/08/2024, 1305 and has been in sinus rhythm in 70s in the interim. His mental status has improved. He was found to be both IgG and IgM positive for Lyme and his anaplasmosis peripheral smear was notable for inclusion bodies. He remains on doxycycline and azithromycin. Continue furosemide 60 mg IV every 8 hours, for volume overload with heart failure with preserved ejection fraction, hyponatremia. Sodium and creatinine continue to improve. Carey catheter remains in place. Diuresed another 4 L in last 24 hours. The patient had been in a rate controlled atrial fibrillation on presentation to the hospital, duration unknown. He tells me that his preference is to be on no medications . I have the impression that adherence will be an ongoing issue. At this time, I believe it is most prudent to proceed without systemic anticoagulation such as warfarin or direct oral anticoagulant as patient is not inclined to take it, and I am concerned about the risks of him taking anticoagulation incorrectly to be higher than him not being on it at all. Continue subcutaneous heparin for DVT prophylaxis while in the hospital. I spent a total of 50 minutes on the date of service in preparation, delivery, and documentation of the care provided to this patient, excluding any time spent in the performance of separately billed services. Cardiology to follow peripherally. Dr Irene rounding on 10/12/24. Call with questions or concerns. Jessica Roland DO Admission and Anticipated Discharge Date Admission Date: October 06, 2024 Subjective Patient seen in cardiology follow up. No complaints. Conversant. Mental status continues to improved. Telemetry reveals SR in the 60 to 70s without recurrence of atrial fibrillation Physical Exam Physical Exam: Temp Pulse Resp BP Pulse Ox O2 Del Method O2 Flow Rate 36.7 C 63 18 144/76 H 96 Nasal Cannula 2 10/10/24 08:00 10/10/24 08:00 10/10/24 08:00 10/10/24 08:00 10/10/24 08:00 10/10/24 09:31 10/10/24 09:31 FiO2 30 10/08/24 07:30 Constitutional: + ill appearing (chronically ill in appe arance , with no acute distress ) and + morbidly obese Neck: + thick neck Respiratory: no audible wheezes Auscultation: + diminished lung sounds (decreased BS at the based bilaterally ); no crackles and no wheezes Cardiovascular: Rate/Rhythm: regular rate, regular rhythm and + irregularly irregular Heart Sounds: normal S1 and normal S2; no murmur Extremities: + edema (2-3+ bilateral LE edema ) Gastrointestinal (Abdomen): Inspection/Auscultation: + abdomen distended Results & Data Vital Signs (Past 12 Hours) Vital Signs Temp Pulse Pulse Resp BP BP Pulse Ox 10/11/24 07:38 36.6 C 72 20 136/67 91 10/11/24 06:55 66 15 95 10/11/24 03:40 36.6 C 64 22 141/85 H 94 10/11/24 00:00 72 10/10/24 23:38 36.4 C 67 18 130/71 93 O2 Del Method FiO2 10/11/24 07:38 Room Air 10/11/24 06:55 Room Air 21 10/11/24 03:40 Room Air 10/11/24 00:00 10/10/24 23:38 Room Air Coding Level of Care Code 63997 SUB INP/OBS CARE 3/50MIN Diagnoses Atrial fibrillation I48.91 JAREN (acute kidney injury) N17.9 Hyponatremia E87.1
--- NOTE | 2024-10-11 12:55 | Electrocardiogram Report ---
Test Reason : Blood Pressure : */* mmHG Vent. Rate : 109 BPM Atrial Rate : * BPM P-R Int : * ms QRS Dur : 104 ms QT Int : 340 ms P-R-T Axes : * 6 22 degrees QTcB Int : 457 ms Atrial fibrillation with rapid ventricular response Low voltage QRS Abnormal ECG When compared with ECG of 05-Oct-2024 22:48, (unconfirmed) No significant change was found Confirmed by Gus Christian ([id number]) on 10/11/2024 12:55:35 PM Referred By: Frandy Fernandez Confirmed By: Gus Christian
--- NOTE | 2024-10-11 13:46 | Hospitalist Progress Note ---
Date of Service October 11, 2024 Assessment & Plan (1) JAREN (acute kidney injury): (2) Hyponatremia: (3) Atrial fibrillation: (4) Encephalopathy: (5) Anaplasmosis: (6) Lyme disease: (7) Cirrhosis: Plan 68-year-old male with HTN, tobacco use presenting as transfer from OSH for critical care in setting of critical hyponatremia. 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 Mild chronic ischemic small vessel disease and mild age-related brain changes. Bilateral mild maxillary sinusitis. --S/P lumbar puncture --CSF studies fungal culture, CSF for RPR, Lyme, Borrelia, West Nile pending -Blood cultures negative to date --S/P Extubation on 10/08/24 --patient empirically treated with ampicillin, acyclovir, azithromycin, Rocephin, doxycycline and vancomycin --Currently on azithromycin, doxycycline -- Delirium precautions Mental status seem to be back to baseline Will transfer to med/tele today Acute Renal Failure likely ATN Hypervolemic Hypoosmolar Hyponatremia Left renal cyst: Incidental finding on imaging Hypokalemia Suspected chronic hyponatremia --Renal US:Left renal cyst. Otherwise unremarkable renal sonogram --Cr: 1.48 today -- Sodium levels 133 today --Continue IV Lasix as recommended by nephrology --Appreciate nephrology input --Monitor sodium level, renal function, urine output closely --Replace electrolytes as needed Renal function continues to improve Transition to oral diuretics as able Atrial Fibrillation HTN --ECHO: Left ventricle is normal in size. Moderate concentric LVH. Borderline global hypokinesis of left ventricle. EF 50 to 55%. Left atrium is mildly dilated. No significant valvular disease. -- Rate is controlled Monitor off AV eugenio blockers Long-term systemic anticoagulation risk versus benefits to be determined Appreciate cardiology input Replace electrolytes as needed Acute Hypoxic Respiratory Failure CAP Pulmonary Edema Tobacco Use Disorder Suspected ANA, obesity hypoventilation, pickwickian syndrome --S/P bronchoscopy on 10/05/2024 --Elevated procalcitonin --Bronchoscopy negative for infection --Bronchial cultures negative --Urine for Legionella pending -likely element of ANA as well --Continue IV diuresis per nephrology --Continue azithromycin, also on doxycycline --Other empiric antibiotics discontinued --Will need sleep study as outpatient Weaned off of supplemental oxygen Likely Cirrhosis Liver cyst -patient has likely cirrhosis Possible hepatorenal syndrome ? Alcohol use --Liver USD:The liver is enlarged and of increased echogenicity which may be due to fatty infiltration and/or hepatocellular disease. There is a 2.7 cm cyst noted in the right lobe of the liver. -- Portal vein ultrasound:The hepatic vessels are all patent. 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 --CSF studies pending --Continue doxycycline -Appreciate ID input Morbid obesity BMI 46 Thyroid nodule Decreased TSH, normal free T4 -Will need further workup as outpatient -Antithyroid antibody pending DM II HbA1c 6.5 Consider adding insulin if needed Will consult peer educator when appropriate BPH PSA 4.5 Needs follow-up as outpatient DVT Px: Heparin SQ CODE STATUS DNI DNR Disposition PT OT recommends SNF Case management to help with discharge planning Admission and Anticipated Discharge Date Admission Date: October 06, 2024 Subjective Patient is seen and examined at bedside States having catheter leak No other complaints today Renal function continues to improve Review of Systems Review of Systems: All systems reviewed & are unremarkable except as noted in Subjective Physical Exam Physical Exam: Physical Exam: Vitals signs as noted above General Appearance:Morbidly Obese, no apparent distress Head: normocephalic, Atraumatic Eyes: normal inspection, EOMI Neck: supple, Trachea midline Respiratory/Chest: Normal breath sounds, CTA, No accessory muscle use Cardiovascular: S1, S2, No murmur Abdomen/GI:Soft, Non tender, + protuberant, bowel sounds present Extremities/Musculoskeletal:normal inspection, B/L LE edema,+ chronic venous stasis changes Neurologic/Psych: Alert, awake, oriented to person, place, grossly moves all extremities, + decreased hearing Skin: normal color, warm, UE wound Results & Data Results & Data Vital Signs (Past 12 Hours) Vital Signs Temp Pulse Pulse Resp BP BP Pulse Ox 10/11/24 11:58 76 19 94 10/11/24 10:54 36.3 C L 79 20 158/79 H 94 10/11/24 08:00 60 10/11/24 08:00 10/11/24 07:38 36.6 C 72 20 136/67 91 10/11/24 06:55 66 15 95 10/11/24 03:40 36.6 C 64 22 141/85 H 94 O2 Del Method FiO2 10/11/24 11:58 Room Air 10/11/24 10:54 Room Air 10/11/24 08:00 10/11/24 08:00 Room Air 10/11/24 07:38 Room Air 10/11/24 06:55 Room Air 21 10/11/24 03:40 Room Air Laboratory Results Short CBC 10/11/24 Range/Units 05:27 WBC 7.52 (4.8-10.8) K/ul Hgb 11.5 L (14.0-18.0) g/dl Hct 34.1 L (42.0-52.0) % Plt Count 363 (130-400) K/uL BMP 10/11/24 05:27 Sodium 133 L Potassium 3.8 Chloride 90 L Carbon Dioxide 35 H BUN 39 H Creatinine 1.48 H Glucose 109 H Calcium 8.7
--- NOTE | 2024-10-11 15:01 | Electrocardiogram Report ---
Test Reason : Blood Pressure : */* mmHG Vent. Rate : 75 BPM Atrial Rate : * BPM P-R Int : * ms QRS Dur : 102 ms QT Int : 406 ms P-R-T Axes : * 33 49 degrees QTcB Int : 453 ms Atrial fibrillation Possible Lateral infarct , age undetermined Abnormal ECG When compared with ECG of 06-Oct-2024 05:37, (unconfirmed) Borderline criteria for Lateral infarct are now Present Confirmed by Gus Christian ([id number]) on 10/11/2024 3:00:40 PM Referred By: Frandy Fernandez Confirmed By: Gus Christian
[2024-10-11] MEDS ORDERED: ALBUT/IPRATROP 3MG/0.5MG NEB 3 ML VIAL NEB PRN (15:10)
--- NOTE | 2024-10-11 15:17 | Electrocardiogram Report ---
Test Reason : Blood Pressure : */* mmHG Vent. Rate : 72 BPM Atrial Rate : 72 BPM P-R Int : 210 ms QRS Dur : 100 ms QT Int : 420 ms P-R-T Axes : 23 8 26 degrees QTcB Int : 459 ms Sinus rhythm with 1st degree A-V block Otherwise normal ECG When compared with ECG of 08-Oct-2024 04:56, (unconfirmed) Sinus rhythm has replaced Atrial fibrillation Confirmed by Gus Christian ([id number]) on 10/11/2024 3:17:01 PM Referred By: Frandy Fernandez Confirmed By: Gus Christian
[2024-10-11] MEDS: FIRST - Mouthwash BLM 5 ML UDP PO PRN (15:35)
[2024-10-12 06:52] LABS: Borrelia miyamotoi DNA Not Detected (Not Detected); Borrelia miyamotoi Source CSF; West Nile Virus, PCR Source CSF; West Nile Virus, PCR, CSF NOT DETECTED (NOT DETECTED)
[2024-10-12 07:19] LABS: Anion Gap 9.0 (3-11); Blood Urea Nitrogen 46.0 mg/dl (6-23); Calcium 8.7 mg/dl (8.6-10.3); Carbon Dioxide 35.0 mmol/L (21-32); Chloride 90.0 mmol/L (98-107); Creatinine Clr Calc Pharmacy 63.9 ml/min; Glucose 100.0 mg/dl (70-99(Fasting)); Potassium 3.8 mmol/L (3.5-5.1); Sodium 134.0 mmol/L (136-145)
--- NOTE | 2024-10-12 12:01 | Nephrology Progress Note ---
Date of Service October 12, 2024 Assessment & Plan Admission and Anticipated Discharge Date Admission Date: October 06, 2024 Subjective Assessment & Plan (1) Hyponatremia: severe hyponatremia with a serum sodium of 118. despite IV fluid initially and currently Lasix sodium has not really moved much and ranges anywhere from 116- 119 for the last 2 days. we do not have prior blood work to compare so not possible to know how much of this is acute drop versus chronic hyponatremia. he was not on any medications to cause hyponatremia as he was not taking any medications. it is also not clear how much alcohol he was drinking. As per the H and P and sisters account he did drink beer but not clear how many and how often. imaging so far is consistent with possible cirrhosis which could be related with alcohol intake versus PINEDA. He has Made lots of urine last few days. Now creatinine crept up a little bit and his urine output has definitely slowed down. I think the extra volume overload he had is gone he developed ATN in the setting of infection and new onset AFib pre admission. will lower the Lasix to 40 twice daily. better to fully Diurese him while in hospital as unlikely he will take any meds at home sodium is now near normal at 134 (2) Encephalopathy: he was significantly confusion admission and currently is intubated for airway protection in his sedated. unclear etiology of encephalopathy. will follow (3) JAREN (acute kidney injury): on admission he had normal creatinine of 0.8 but it has since then gone up steadily and peaked at 2.44 but since then has dropped a little bit. essentially doubling of creatinine from baseline. creatinine tiny bit higher than yesterday at 1.5 versus 1.4 yesterday this would qualify as acute kidney injury. his urine sediment is very active with lots of epithelial cells hyaline casts so consistent with possible ATN. S--Started to make much more urine. Carey catheter is out urine output is now slowing down. overall better. physical examination elderly white male who appears to be very disheveled and unkempt. now extubated mucous membrane is moist. Neck is supple no JVD chest bilateral decreased breath sound with ventilator conductive sound CVS S1 and S2 tachycardic distant heart sounds abdomen is distended and obese extremities--- bilateral trace edema with chronic skin changes as well as very unkempt skin Results & Data Vital Signs (Past 12 Hours) Vital Signs Temp Pulse Pulse Resp BP Pulse Ox O2 Del Method 10/12/24 11:41 36.7 C 74 20 115/69 97 Room Air 10/12/24 09:54 Room Air 10/12/24 08:12 36.8 C 63 20 124/70 96 Room Air 10/12/24 07:27 60 10/12/24 07:23 64 18 93 Room Air 10/12/24 03:59 36.7 C 66 20 126/70 96 Room Air
--- NOTE | 2024-10-12 13:30 | Hospitalist Progress Note ---
Date of Service October 12, 2024 Assessment & Plan (1) JAREN (acute kidney injury): (2) Hyponatremia: (3) Atrial fibrillation: (4) Encephalopathy: (5) Anaplasmosis: (6) Lyme disease: (7) Cirrhosis: Plan 68-year-old male with HTN, tobacco use presenting as transfer from OSH for critical care in setting of critical hyponatremia. 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 Mild chronic ischemic small vessel disease and mild age-related brain changes. Bilateral mild maxillary sinusitis. --S/P lumbar puncture --CSF studies fungal culture, CSF for RPR, Lyme, Borrelia, West Nile pending -Blood cultures negative to date --S/P Extubation on 10/08/24 --patient empirically treated with ampicillin, acyclovir, azithromycin, Rocephin, doxycycline and vancomycin --Currently on azithromycin, doxycycline --Delirium precautions Mental status back to baseline Prefers to be discharged home as able Acute Renal Failure likely ATN Hypervolemic Hypoosmolar Hyponatremia Left renal cyst: Incidental finding on imaging Hypokalemia Suspected chronic hyponatremia --Renal US:Left renal cyst. Otherwise unremarkable renal sonogram --Cr: 1.5 today -- Sodium levels 134 today --Continue IV Lasix decreased to 40 mg twice a day --Appreciate nephrology input --Monitor sodium level, renal function, urine output closely --Replace electrolytes as needed Continue to diurese per nephrology Atrial Fibrillation HTN --ECHO: Left ventricle is normal in size. Moderate concentric LVH. Borderline global hypokinesis of left ventricle. EF 50 to 55%. Left atrium is mildly dilated. No significant valvular disease. -- Rate is controlled Monitor off AV eugenio blockers Given patient not inclined to take long-term anticoagulation, risks Vs benefits were discussed. No plan for long-term anticoagulation On heparin SQ while hospitalized Appreciate cardiology input Replace electrolytes as needed Acute Hypoxic Respiratory Failure CAP Pulmonary Edema Tobacco Use Disorder Suspected ANA, obesity hypoventilation, pickwickian syndrome --S/P bronchoscopy on 10/05/2024 --Elevated procalcitonin --Bronchoscopy negative for infection --Bronchial cultures negative --Urine for Legionella pending -likely element of ANA as well --Continue IV diuresis per nephrology --Continue azithromycin, also on doxycycline --Other empiric antibiotics discontinued --Will need sleep study as outpatient Weaned off of supplemental oxygen Likely Cirrhosis Liver cyst -patient has likely cirrhosis Possible hepatorenal syndrome ? Alcohol use --Liver USD:The liver is enlarged and of increased echogenicity which may be due to fatty infiltration and/or hepatocellular disease. There is a 2.7 cm cyst noted in the right lobe of the liver. -- Portal vein ultrasound:The hepatic vessels are all patent. 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 --CSF cultures negative --Continue doxycycline -Appreciate ID input Morbid obesity BMI 46 Thyroid nodule Decreased TSH, normal free T4 -Will need further workup as outpatient -Antithyroid antibody pending DM II HbA1c 6.5 Consider adding insulin if needed Will consult clinical staff educator when appropriate BPH PSA 4.5 Needs follow-up as outpatient DVT Px: Heparin SQ CODE STATUS DNI DNR Disposition PT OT recommends SNF Case management to help with discharge planning Patient leaning more towards going home Admission and Anticipated Discharge Date Admission Date: October 06, 2024 Subjective Patient is seen and examined at bedside States feeling a lot better today Prefers to be discharged home as able Denies any chest pain, dyspnea, nausea, vomiting, abdominal pain Continues to diurese well Review of Systems Review of Systems: All systems reviewed & are unremarkable except as noted in Subjective Physical Exam Physical Exam: Physical Exam: Vitals signs as noted above General Appearance:Morbidly Obese, no apparent distress Head: normocephalic, Atraumatic Eyes: normal inspection, EOMI Neck: supple, Trachea midline Respiratory/Chest: Normal breath sounds, CTA, No accessory muscle use Cardiovascular: S1, S2, No murmur Abdomen/GI:Soft, Non tender, + protuberant, bowel sounds present Extremities/Musculoskeletal:normal inspection, B/L LE edema,+ chronic venous stasis changes Neurologic/Psych: Alert, awake, oriented to person, place, grossly moves all extremities, + decreased hearing Skin: normal color, warm, UE wound Results & Data Results & Data Vital Signs (Past 12 Hours) Vital Signs Temp Pulse Pulse Resp BP Pulse Ox O2 Del Method 10/12/24 11:41 36.7 C 74 20 115/69 97 Room Air 10/12/24 09:54 Room Air 10/12/24 08:12 36.8 C 63 20 124/70 96 Room Air 10/12/24 07:27 60 10/12/24 07:23 64 18 93 Room Air 10/12/24 03:59 36.7 C 66 20 126/70 96 Room Air Laboratory Results [facility] 10/12/24 06:18 Sodium 134 L Potassium 3.8 Chloride 90 L Carbon Dioxide 35 H BUN 46 H Creatinine 1.55 H Glucose 100 H Calcium 8.7
[2024-10-12] MEDS ORDERED: SODIUM CHLOR 7% 4 ML NEB NEB PRN (16:30)
[2024-10-12] MEDS: FUROSEMIDE 40 MG/4 ML VIAL IV SCH (20:23)
[2024-10-13 06:32] LABS: Hematocrit (blood only) 35.6 % (42.0-52.0); Hemoglobin 12.2 g/dl (14.0-18.0); Mean Corpuscular Hemoglobin 28.4 pg (25.0-34.0); Mean Corpuscular Volume 83.0 fL (80.0-100.0); Platelet Count 464 K/uL (130-400); RDW Standard Deviation 45.2 fL (36.4-46.3); Red Blood Count 4.29 M/uL (4.70-6.10); White Blood Count 9.27 K/ul (4.8-10.8)
[2024-10-13 07:02] LABS: Alanine Aminotransferase 94.0 U/L (7-52); Albumin Globulin Ratio 1.0 (0.9-2); Alkaline Phosphatase 83.0 U/L (34-104); Anion Gap 9.0 (3-11); Bilirubin,Total 0.7 mg/dl (0.2-1.0); Blood Urea Nitrogen 45.0 mg/dl (6-23); Calcium 9.3 mg/dl (8.6-10.3); Carbon Dioxide 32.0 mmol/L (21-32); Chloride 93.0 mmol/L (98-107); Creatinine Clr Calc Pharmacy 78.0 ml/min; Globulin 3.5 gm/dl (2.5-4.0); Glucose 104.0 mg/dl (70-99(Fasting)); Magnesium 2.1 mg/dl (1.7-2.4); Potassium 3.9 mmol/L (3.5-5.1); Sodium 134.0 mmol/L (136-145); Total Protein 7.1 gm/dl (6.0-8.3)
--- NOTE | 2024-10-13 12:57 | Hospitalist Progress Note ---
Date of Service October 13, 2024 Assessment & Plan (1) JAREN (acute kidney injury): (2) Hyponatremia: (3) Atrial fibrillation: (4) Encephalopathy: (5) Anaplasmosis: (6) Lyme disease: (7) Cirrhosis: Plan 68-year-old male with HTN, tobacco use presenting as transfer [facility] for critical care in setting of critical hyponatremia. 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 Mild chronic ischemic small vessel disease and mild age-related brain changes. Bilateral mild maxillary sinusitis. --S/P lumbar puncture --CSF studies not contributory/negative -Blood cultures negative to date --S/P Extubation on 10/08/24 --patient empirically treated with ampicillin, acyclovir, azithromycin, Rocephin, doxycycline and vancomycin --Currently on azithromycin, doxycycline --Delirium precautions Mental status back to baseline Prefers to be discharged home Acute Renal Failure likely ATN Hypervolemic Hypoosmolar Hyponatremia Left renal cyst: Incidental finding on imaging Hypokalemia Suspected chronic hyponatremia --Renal US:Left renal cyst. Otherwise unremarkable renal sonogram --Cr: 1.2 today -- Sodium levels 134 today --Continue IV Lasix decreased to 40 mg twice a day --Appreciate nephrology input --Monitor sodium level, renal function, urine output closely --Replace electrolytes as needed Continue to diurese per nephrology Likely to transition to oral diuretics in 1-2 days Lost about >10kg weight with the help of diuresis Atrial Fibrillation HTN --ECHO: Left ventricle is normal in size. Moderate concentric LVH. Borderline global hypokinesis of left ventricle. EF 50 to 55%. Left atrium is mildly dilated. No significant valvular disease. -- Rate is controlled Monitor off AV eugenio blockers Given patient not inclined to take long-term anticoagulation, risks Vs benefits were discussed. No plan for long-term anticoagulation On heparin SQ while hospitalized Appreciate cardiology input Replace electrolytes as needed Acute Hypoxic Respiratory Failure CAP Pulmonary Edema Tobacco Use Disorder Suspected ANA, obesity hypoventilation, pickwickian syndrome --S/P bronchoscopy on 10/05/2024 --Elevated procalcitonin --Bronchoscopy negative for infection --Bronchial cultures negative --Urine for Legionella pending -likely element of ANA as well --Continue IV diuresis per nephrology --Continue azithromycin, also on doxycycline --Other empiric antibiotics discontinued --Will need sleep study as outpatient Weaned off of supplemental oxygen Likely Cirrhosis Liver cyst -patient has likely cirrhosis Possible hepatorenal syndrome ? Alcohol use --Liver USD:The liver is enlarged and of increased echogenicity which may be due to fatty infiltration and/or hepatocellular disease. There is a 2.7 cm cyst noted in the right lobe of the liver. -- Portal vein ultrasound:The hepatic vessels are all patent. 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 --CSF cultures negative --Continue doxycycline -Appreciate ID input Morbid obesity BMI 46 Thyroid nodule Decreased TSH, normal free T4 -Will need further workup as outpatient -Antithyroid antibody pending DM II HbA1c 6.5 Consider adding insulin if needed Will consult environmental educator when appropriate BPH PSA 4.5 Needs follow-up as outpatient DVT Px: Heparin SQ CODE STATUS DNI DNR Disposition PT OT recommends SNF Case management to help with discharge planning Patient leaning more towards going home Admission and Anticipated Discharge Date Admission Date: October 06, 2024 Subjective Patient is seen and examined at bedside Offers no new complaints Renal function continues to improve Denies any chest pain, dyspnea, nausea, vomiting, abdominal pain Review of Systems Review of Systems: All systems reviewed & are unremarkable except as noted in Subjective Physical Exam Physical Exam: Physical Exam: Vitals signs as noted above General Appearance:Morbidly Obese, no apparent distress Head: normocephalic, Atraumatic Eyes: normal inspection, EOMI Neck: supple, Trachea midline Respiratory/Chest: Normal breath sounds, CTA, No accessory muscle use Cardiovascular: S1, S2, No murmur Abdomen/GI:Soft, Non tender, + protuberant, bowel sounds present Extremities/Musculoskeletal:normal inspection, B/L LE edema,+ chronic venous stasis changes Neurologic/Psych: Alert, awake, oriented to person, place, grossly moves all extremities, + decreased hearing Skin: normal color, warm, UE wound Results & Data Results & Data Vital Signs (Past 12 Hours) Vital Signs Temp Pulse Pulse Resp BP BP Pulse Ox 10/13/24 11:25 36.6 C 74 18 133/75 93 10/13/24 09:21 10/13/24 08:09 36.8 C 66 18 132/81 95 10/13/24 07:02 61 10/13/24 03:22 36.6 C 64 18 121/69 92 O2 Del Method 10/13/24 11:25 Room Air 10/13/24 09:21 Room Air 10/13/24 08:09 Room Air 10/13/24 07:02 10/13/24 03:22 Room Air Laboratory Results Short CBC 10/13/24 Range/Units 06:10 WBC 9.27 (4.8-10.8) K/ul Hgb 12.2 L (14.0-18.0) g/dl Hct 35.6 L (42.0-52.0) % Plt Count 464 H (130-400) K/uL BMP 10/13/24 06:10 Sodium 134 L Potassium 3.9 Chloride 93 L Carbon Dioxide 32 BUN 45 H Creatinine 1.27 Glucose 104 H Calcium 9.3 Liver Function 10/13/24 Range/Units 06:10 Total Bilirubin 0.7 (0.2-1.0) mg/dl AST 48 H (13-39) U/L ALT 94 H (7-52) U/L Alkaline Phosphatase 83 (34-104) U/L Albumin 3.6 (3.4-5.0) gm/dl
[2024-10-14 07:09] LABS: Anion Gap 8.0 (3-11); Blood Urea Nitrogen 43.0 mg/dl (6-23); Calcium 9.5 mg/dl (8.6-10.3); Carbon Dioxide 33.0 mmol/L (21-32); Chloride 94.0 mmol/L (98-107); Creatinine Clr Calc Pharmacy 67.1 ml/min; Glucose 95.0 mg/dl (70-99(Fasting)); Potassium 3.7 mmol/L (3.5-5.1); Sodium 135.0 mmol/L (136-145)
[2024-10-14 08:31] VITALS: RESP 16; O2SAT 95
--- NOTE | 2024-10-14 08:54 | Nephrology Progress Note ---
Date of Service October 14, 2024 Assessment & Plan (1) Hyponatremia: Plan: critical hyponatremia with a presenting serum sodium of 118. despite IV fluid initially and currently Lasix sodium did not move much and ranged anywhere from 116-119 for about 48 hrs. we do not have prior blood work to compare so not possible to know how much of this is acute drop versus chronic hyponatremia. he was not on any medications to cause hyponatremia as he was not taking any medications. it is also not clear how much alcohol he was drinking. As per the H and P and sisters account he did drink beer but not clear how many and how often. imaging so far is consistent with possible cirrhosis which could be related with alcohol intake versus PINEDA. serum sodium 135 today, K 3.7. correction rate acceptable tolerating lasix 40 mg iv bid -maintain eukalemia >> give K -avoid aldactone or metolazone for now given h/o severe hyponatremia NEPH D/C RECS DX: -critical hyponatremia, hypervolemic -stage 2 JAREN, improving but not resolved. baseline creatinine 0.8 -hypertension with LVH -paroxysmal atrial fibrillation, declines anticoagulation -obesity hypoventilation -liver cirrhosis/hepatomegaly -acute anaplasmosis RX: -furosemide 80 mg two daily doses at least 4 hours or more apart -potassium chloride 10 mEq bid OTHER CARE: -avoid all nsaids -less than 2 gm daily sodium diet -limit po fluid intake to 1.5 L daily -daily standing weight if feasible > may need help locating scale he could use w/ his weight -avoid metolazone or /and spironolactone for now given sodium status -BMP weekly x 3 -labs as below just before appt w/ me > blood and urine -self-measured BP log using upper arm cuff if he has one -pt concerned about lack of insurance coverage and costs of health care > pls address w/ hospitalist service and w/ plan as OP F/U APPTS -establish with PCP, with cardiology, with hepatology ->>suggest nephrology hospital d/c appt 2 wks after d/c w/ me Sudheer Vallejo; neph nurse to order CMP, serum/urine osms, rd urine electrolytes, UACM, ACR, prot/creat Care coordinated w/ Dr Roger re d/c med dosing, f/u labs adn appts; we are in agreement. (2) JAREN (acute kidney injury): Plan: History of stage II resolving JAREN attributed to ATN with baseline creatinine 0.8. active urine sediment with lots of epithelial cells hyaline casts so consistent with possible ATN. JAREN has not yet fully resolved and today creatinine is worse going up from 1.3 to 1.5 on Lasix On admission he had normal creatinine of 0.8 but it increased steadily to peak on October 08 at 2.4 and since then down trended to dayan value of 1.3 on October 13 -Continue NSAID and other nephrotoxin avoidance Daily basic metabolic panel Will need outpatient follow-up Admission and Anticipated Discharge Date Admission Date: October 06, 2024 Subjective leg edema much improved; many questions about OP care, pathophys of cardiac, liver, renal issues; no sob; waiting on PT eval he tells me; remains very interested in having earthmoving labourer follow him, some $$ concerns Review of Systems 2 Review of Systems: All systems reviewed & are unremarkable except as noted in Subjective Physical Exam 2 Constitutional: well developed, well nourished, + morbidly obese and cooperative; no acute distress Eyes: EOM intact bilaterally ENMT: Mouth: + dry oral mucous membranes Respiratory: normal respiratory effort and + cough (occasional dry) A uscultation: + diminished lung sounds Cardiovascular: Rate/Rhythm: regular rate and regular rhythm Extremities: + edema (indurated BLE) Gastrointestinal (Abdomen): Inspection/Auscultation: normal bowel sounds P ercussion/Palpation: abdomen soft; abdomen nontender Musculoskeletal: Extremities: strength 5/5 throughout Skin: no rashes, warm and dry Neurologic: martinez, fluent speech, no tremor Results & Data Vital Signs (Past 12 Hours) Vital Signs Temp Pulse Pulse Resp BP Pulse Ox O2 Del Method 10/14/24 08:31 36.9 C 74 16 152/87 H 95 Room Air 10/14/24 06:48 67 10/14/24 02:38 36.4 C L 64 20 107/67 96 Room Air 10/13/24 23:34 36.6 C 64 20 114/69 97 Room Air 10/13/24 22:36 Room Air 10/13/24 21:44 70 Laboratory Results 10/13/24 06:10 10/14/24 05:58
[2024-10-14 11:39] VITALS: BP 131/81; TEMP 97.7
--- NOTE | 2024-10-14 13:28 | Hospitalist Progress Note ---
Date of Service October 14, 2024 Assessment & Plan (1) JAREN (acute kidney injury): (2) Hyponatremia: (3) Atrial fibrillation: (4) Encephalopathy: (5) Anaplasmosis: (6) Lyme disease: (7) Cirrhosis: Plan 68-year-old male with HTN, tobacco use presenting as transfer from [facility] for critical care in setting of critical hyponatremia. 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 Mild chronic ischemic small vessel disease and mild age-related brain changes. Bilateral mild maxillary sinusitis. --S/P lumbar puncture --CSF studies not contributory/negative -Blood cultures negative to date --S/P Extubation on 10/08/24 --patient empirically treated with ampicillin, acyclovir, azithromycin, Rocephin, doxycycline and vancomycin --Currently on azithromycin, doxycycline --Delirium precautions Mental status back to baseline Plan to discharge home with home health Acute Renal Failure likely ATN Hypervolemic Hypoosmolar Hyponatremia Left renal cyst: Incidental finding on imaging Hypokalemia Suspected chronic hyponatremia --Renal US:Left renal cyst. Otherwise unremarkable renal sonogram --Cr: 1.4 today -- Sodium levels 134 today --Continue IV Lasix decreased to 40 mg twice a day >> transition to Lasix 80 mg twice a day per nephrology --Appreciate nephrology input --Monitor sodium level, renal function, urine output closely --Replace electrolytes as needed Needs follow-up with nephrology on discharge Atrial Fibrillation HTN --ECHO: Left ventricle is normal in size. Moderate concentric LVH. Borderline global hypokinesis of left ventricle. EF 50 to 55%. Left atrium is mildly dilated. No significant valvular disease. -- Rate is controlled Monitor off AV eugenio blockers Given patient not inclined to take long-term anticoagulation, risks Vs benefits were discussed. No plan for long-term anticoagulation On heparin SQ while hospitalized Appreciate cardiology input Replace electrolytes as needed Acute Hypoxic Respiratory Failure CAP Pulmonary Edema Tobacco Use Disorder Suspected ANA, obesity hypoventilation, pickwickian syndrome --S/P bronchoscopy on 10/05/2024 --Elevated procalcitonin --Bronchoscopy negative for infection --Bronchial cultures negative --Urine for Legionella pending -likely element of ANA as well --Continue IV diuresis per nephrology --Continue azithromycin, also on doxycycline --Other empiric antibiotics discontinued --Will need sleep study as outpatient Weaned off of supplemental oxygen Likely Cirrhosis Liver cyst -patient has likely cirrhosis Possible hepatorenal syndrome ? Alcohol use --Liver USD:The liver is enlarged and of increased echogenicity which may be due to fatty infiltration and/or hepatocellular disease. There is a 2.7 cm cyst noted in the right lobe of the liver. -- Portal vein ultrasound:The hepatic vessels are all patent. 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 --CSF cultures negative --Continue doxycycline -Appreciate ID input Morbid obesity BMI 46 Thyroid nodule Decreased TSH, normal free T4 -Will need further workup as outpatient -Antithyroid antibody pending DM II HbA1c 6.5 Consider adding insulin if needed Will consult senior health educator when appropriate BPH PSA 4.5 Needs follow-up as outpatient DVT Px: Heparin SQ CODE STATUS DNI DNR Disposition Home with home health Admission and Anticipated Discharge Date Admission Date: October 06, 2024 Subjective Patient is seen and examined at bedside States feeling well today Eager to get discharged Discussed with nephrology today Leg edema much improved Denies any chest pain, dyspnea, nausea, vomiting, abdominal pain Plan to discharge home today Review of Systems Review of Systems: All systems reviewed & are unremarkable except as noted in Subjective Physical Exam Physical Exam: Physical Exam: Vitals signs as noted above General Appearance:Morbidly Obese, no apparent distress Head: normocephalic, Atraumatic Eyes: normal inspection, EOMI Neck: supple, Trachea midline Respiratory/Chest: Normal breath sounds, CTA, No accessory muscle use Cardiovascular: S1, S2, No murmur Abdomen/GI:Soft, Non tender, + protuberant, bowel sounds present Extremities/Musculoskeletal:normal inspection, B/L LE edema,+ chronic venous st asis changes Neurologic/Psych: Alert, awake, oriented to person, place, grossly moves all extremities, + decreased hearing Skin: normal color, warm, UE wound Results & Data Results & Data Vital Signs (Past 12 Hours) Vital Signs Temp Pulse Pulse Resp BP Pulse Ox O2 Del Method 10/14/24 11:38 36.5 C 75 16 131/81 95 Room Air 10/14/24 08:55 Room Air 10/14/24 08:31 36.9 C 74 16 152/87 H 95 Room Air 10/14/24 06:48 67 10/14/24 02:38 36.4 C L 64 20 107/67 96 Room Air Laboratory Results [facility] 10/14/24 05:58 Sodium 135 L Potassium 3.7 Chloride 94 L Carbon Dioxide 33 H BUN 43 H Creatinine 1.46 H Glucose 95 Calcium 9.5
--- NOTE | 2024-10-14 13:38 | Discharge Summary ---
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 Lasix 80 mg twice a day per nephrology --Appreciate nephrology input --Monitor sodium level, renal function, urine output closely --Replace electrolytes as needed Needs follow-up with nephrology on discharge Atrial Fibrillation HTN --ECHO: Left ventricle is normal in size. Moderate concentric LVH. Borderline global hypokinesis of left ventricle. EF 50 to 55%. Left atrium is mildly dilated. No significant valvular disease. -- Rate is controlled Monitor off AV eugenio blockers Given patient not inclined to take long-term anticoagulation, risks Vs benefits were discussed. No plan for long-term anticoagulation On heparin SQ while hospitalized Appreciate cardiology input Replace electrolytes as needed Acute Hypoxic Respiratory Failure CAP Pulmonary Edema Tobacco Use Disorder Suspected ANA, obesity hypoventilation, pickwickian syndrome --S/P bronchoscopy on 10/05/2024 --Elevated procalcitonin --Bronchoscopy negative for infection --Bronchial cultures negative --Urine for Legionella pending -likely element of ANA as well --Continue IV diuresis per nephrology --Continue azithromycin, also on doxycycline --Other empiric antibiotics discontinued --Will need sleep study as outpatient Weaned off of supplemental oxygen Likely Cirrhosis Liver cyst -patient has likely cirrhosis Possible hepatorenal syndrome ? Alcohol use --Liver USD:The liver is enlarged and of increased echogenicity which may be due to fatty infiltration and/or hepatocellular disease. There is a 2.7 cm cyst noted in the right lobe of the liver. -- Portal vein ultrasound:The hepatic vessels are all patent. 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 --CSF cultures negative --Continue doxycycline -Appreciate ID input Morbid obesity BMI 46 Thyroid nodule Decreased TSH, normal free T4 -Will need further workup as outpatient -Antithyroid antibody pending DM II HbA1c 6.5 Consider adding insulin if needed Will consult special education paraeducator when appropriate BPH PSA 4.5 Needs follow-up as outpatient DVT Px: Heparin SQ CODE STATUS DNI DNR Disposition Home with home health Total Time Total Time Spent Total Time Spent (In Minutes): 54 minutes Discharge Plan Discharge Items Patient Disposition: Home - Home Health Services Reason For Visit: CONFUSION, HYPONATREMIA Discharge Diagnosis: Acute Renal Failure Atrial Fibrillation Acute Hypoxic Respiratory Failure Community-acquired pneumonia Pulmonary edema Tobacco use disorder Suspected liver cirrhosis Acute Lyme's disease Anaplasmosis Thyroid nodule Acute metabolic encephalopathy Diabetes mellitus Morbid obesity BPH Activity: Per Instructions section Exercise/Sports: Gradually increase as tolerated Non-emergency contact: Primary Care Provider, [employer] and Paralegal Specialist Call non-emergency contact if: you have any medication questions, your symptoms worsen, your pain is concerning for you and you have a fever Follow-up/Referrals: Rafael Roland DO [[employer]] - Ashish Bean MD [Surgeon] - Michael Holland MD [Outside Practitioners] - (Date & Time 10/22/2024 10:20 AM Provider: Michael Holland MD [facility], [facility] ) Diet: Carb Consistent or DM2, Heart Healthy and Low Sodium (2gm) Fluids: 1500ml (6 cups) Addtl Attending Provider Instructions: --Follow-up with your primary care physician in 1 week --Follow-up with your arc furnace operator Dr. Roland in 3-4 weeks --Follow-up with your president and chief operating officer in 2 weeks with repeat blood work --Follow-up with your drafter landscape for further evaluation of your liver as recommended -- Complete the antibiotic course azithromycin, doxycycline as prescribed --Monitor your blood glucose levels and blood pressure regularly and discuss with your primary care physician for further management of diabetes and hypertension as recommended -- Some of your blood test as below are pending at the time of discharge(serological test for Babesia, strep pneumococcal IgG, HIV, Legionella IgM antibody, RPR). Follow-up with your physician for results. -- Obtain blood test (basic metabolic panel) weekly for 3 weeks and follow-up with your president and chief operating officer for further recommendations. --You are incidentally noted to have liver cyst, thyroid nodule and your imaging studies or suggestive of possible cirrhosis. Follow-up with your primary care physician for further recommendations as outpatient. Seek immediate medical attention if your symptoms reoccur or worsen Please review medication list provided on discharge for any medication changes as instructed. Please call if you have any questions or problems. You can reach a [facility] hospitalist on duty at [facility] 24 hours a day by calling [phone] Pending Studies at Discharge: Yes Studies:: HIV, Legionella, RPR, Babesia, antithyroid antibody Stand-Alone Forms: [facility], Smoking Cessation Medications and DC Order Prescriptions: New doxycycline hyclate 100 mg Capsule 100 mg PO BID Qty: 12 0RF azithromycin 250 mg Tablet 500 mg PO QAM Qty: 1 0RF thiamine HCl (vitamin B1) 100 mg Tablet 100 mg PO QAM Qty: 30 0RF furosemide [Lasix] 80 mg tablet 80 mg PO BID Qty: 60 1RF potassium chloride 10 mEq capsule, extended release 10 meq PO BID Qty: 60 0RF Discharge Orders: Discharge Order (Routine); Ordered 10/14/24 Ordered By: Karthikeyan Jessica/Other Patient Handouts: A1C, 5 Steps for Eating Healthier Admission Data Admit Date/Time: 10/06/24 00:04 Attending Provider: Karthikeyan Roger Admit Provider: Toni Crowe Primary Care Provider: PCP,NO Other Providers: [place],[facility], [place]; [facility]; [facility]; [place]; Nguyễn Abreu; Will Parrish; Ashlee Savage; Dayne Underwood I.; Ru Powell II; Mely Reese; Michael Lilly; Alexey Herr; Prema Reyna; Waqas Butt; Amber Edwards
[2024-10-14 14:51] VITALS: PULSE 81
[2024-10-15 20:53] LABS: Pneumococcal IgG Type 12 (12F) <0.3; Pneumococcal IgG Type 17 (17F) <0.3; Pneumococcal IgG Type 19 (19F) <0.3; Pneumococcal IgG Type 2 <0.3; Pneumococcal IgG Type 20 <0.3; Pneumococcal IgG Type 22 (22F) <0.3; Pneumococcal IgG Type 23 (23F) <0.3; Pneumococcal IgG Type 26 (6B) <0.3; Pneumococcal IgG Type 34 (10A) <0.3; Pneumococcal IgG Type 43 (11A) <0.3; Pneumococcal IgG Type 51 (7F) <0.3; Pneumococcal IgG Type 54 (15B) <0.3; Pneumococcal IgG Type 56 (18C) <0.3; Pneumococcal IgG Type 57 (19A) <0.3; Pneumococcal IgG Type 68 (9V) <0.3; Pneumococcal IgG Type 70 (33F) <0.3
[2024-10-15 21:28] LABS: HIV 1 RNA PCR Copies/ML NOT DETECTED copies/mL (NOT DETECTED); Legionella pneumoph IgM, IFA <1:256 TITER; RPR (Monitor) NON-REACTIVE (NON-REACTIVE); Thyroglobulin Antibodies <1 IU/mL (< or = 1)
--- NOTE | 2024-11-05 10:00 | Procedure Note ---
Procedure Note Date of Service September Procedure date: Noted above Procedure: fiberoptic bronchoscopy Pre-procedure indication: Intubation, sepsis, Post-procedure Diagnosis: same as above Prior to Procedure: Informed Consent: The risks, benefits, indications, potential complications, and alternatives were explained to the patient's family and verbal consent obtained. Attending Staff: Alberto Abreu DO Resident/APC: Deni Skin Prep: Not applicable Anesthesia: Continuous infusion The identity of the patient was confirmed and a bedside time out was performed. Description of Procedure: Fiberoptic bronchoscopy was performed via endotracheal tube. Bronchioalveolar lavage right middle lobe was performed. Findings included: Unremarkable airways, no significant mucoid impaction Complications: None Specimens: Bronchial washings sent for culture and Gram stain, fungal elements, AFB stain and culture, cell count differential. Estimated blood loss: Zero [facility] Procedure Codes (Charges) Pulmonary/Thoracic Procedure 1: Pulmonary and Thoracic: 70582 Dx bronchoscopy/BAL Coding CPT Codes Pulmonary/Thoracic - Pulmonary and Thoracic: 69000 Dx bronchoscopy/BAL ([id number]) Additional Codes Date of Service ([email or web address])
== END 2024-10-14 17:02 | disposition home or self-care (01) | DRG 640 ==
LOC: 1E 22:04 → SUATTDRO 10-06 00:04 → 1E 10-06 14:23 → 4W 10-09 20:26 → 2W 10-11 18:17